=== PATIENT | male | born 1960 | race Caucasian/White ===

== ENCOUNTER 2016-10-31 08:40 | Inpatient (IN) | payer BC ==
[~2016-10-31] VITALS: Ht 167.6 cm; Wt 90.5 kg
[~2016-10-31 08:40] MED LIST: ASPEC81 PO; CHOL100010 PO; CLC6 PO; COEN1CAP28 PO; LPT10 PO; PRAM0.129 PO; PRT/40 PO; TMB100 PO; TPRSR25 PO; WLLSR/200 PO; XRL10 PO; ZNTT/150 PO
[2016-10-31 09:17] LABS: BASO % 0.2 %; BASO ABS # 0.02 K/uL (0-0.2); COMPLETE YES; EOS % 0.4 %; HEMATOCRIT 42.3 % (42-52); IG% 0.2 %; LYMPH % 10.6 %; LYMPH ABS # 1.15 K/uL (1.2-3.4); MEAN CELL VOLUME 82.6 fL (80-100); MEAN CORPUSCULAR HEMOGLOBIN 29.3 pg (25-34); MEAN CORPUSCULAR HGB CONC 35.5 g/dl (32-36); MEAN PLATELET VOLUME 10.3 fL (7.4-10.4); NEUT % 80.6 %; PLATELET COUNT 240 K/uL (130-400); RED BLOOD COUNT 5.12 M/uL (4.7-6.1)
[2016-10-31] MEDS ORDERED: ALBUT/IPRATROP 3MG/0.5MG NEB 3 ML VIAL INH STA ×2 (09:27→13:21)
[2016-10-31 09:35] LABS: ALT/SGPT 21 U/L (12-78); BLOOD UREA NITROGEN 21 mg/dl (7-18); BUN/CREATININE RATIO 17.3 (10-20); CALCIUM 9.3 mg/dl (8.5-10.1); CARBON DIOXIDE 23 mmol/L (21-32); CHLORIDE 103 mmol/L (98-107); GLUCOSE 99 mg/dl (70-99); POTASSIUM 4.1 mmol/L (3.5-5.1); PROTHROMBIN TIME (PATIENT) 10.7 SECONDS (9.0-12.0); SODIUM 137 mmol/L (136-145)
[2016-10-31 09:39] LABS: ALB/GLOB RATIO 0.8 (0.9-2); ALKALINE PHOSPHATASE 117 U/L (45-117); AST/SGOT 19 U/L (15-37); CKMB/CK RATIO 0.7 (0-3.0)
--- NOTE | 2016-10-31 09:42 | DIAGNOSTIC IMAGING REPORT ---
CHEST ONE VIEW PORTABLE CLINICAL HISTORY: EVALUATE RESPIRATORY DISTRESS. DYSPNEA dyspnea COMPARISON STUDY: 07/12/2014 FINDINGS: Moderate cardiac megaly. Findings of developing congestive failure. Diaphragms are smooth. Costophrenic angles are sharp. IMPRESSION: Cardia megaly. Congestive failure. Electronically signed by: Musa Josue M.D. 10/31/2016 9:40 AM Dictated Date/Time: 10/31/2016 9:39 AM
[2016-10-31] MEDS ORDERED: ASPI325T45 (09:43)
[2016-10-31] MEDS ORDERED: CHOL1000 PO (09:43)
[2016-10-31] MEDS ORDERED: ALLO100T PO (09:43)
[2016-10-31 11:04] LABS: URINE APPEARANCE CLEAR (CLEAR); URINE BILIRUBIN NEG (NEG); URINE COLOR YELLOW; URINE NITRITE NEG (NEG); UROBILINOGEN NEG (NEG)
[2016-10-31 11:05] LABS: MANUAL MICROSCOPIC REQUIRED? NO; REVIEW REQ? NO
[2016-10-31] MEDS ORDERED: DOXYCYCLINE HYCLATE 100 MG CAP PO ONE (12:00)
[2016-10-31] MEDS ORDERED: COLCHICINE 0.6 MG TAB PO PRN (14:45)
[2016-10-31] MEDS ORDERED: POLYETHYLENE (MIRALAX) 17 GM PACK PO PRN (14:45)
[2016-10-31] MEDS ORDERED: ONDANSETRON INJ 2 MG/ML 2 ML VIAL IV PRN (14:45)
[2016-10-31] MEDS ORDERED: ACETAMINOPHEN 325 MG TAB PO PRN (14:45)
[2016-10-31] MEDS ORDERED: RANITIDINE HCL 150 MG TAB PO PRN (14:45)
[2016-10-31] MEDS ORDERED: PRAMIPEXOLE DIHYDROCHLORIDE 0.25MG TAB PO PRN (14:45)
--- NOTE | 2016-10-31 15:28 | History and Physical ---
History & Physical Date & Time of Service: Oct 31, 2016 at 15:25 Chief Complaint: Cold, Chest Hurts, Oxygen Levels Are Down Primary Care Physician: Hilario Zheng M.D. History of Present Illness Source: patient, family 56 y/o M with PMH of atrial fibrillation, GERD, Hypercholesterolemia here after he presented to his PCP's office this morning with persistent productive cough and SOB and found to have a saturation of 91. His symptoms started about 3 days ago with a sore throat and a cold and overnight his cough worsened with greenish productive sputum. he had a low grade fever this morning with a temp of 99.5. has a h/o a fib rate controlled with metoprolol and flecainide and using aspirin for AC. No h/o SD, last echo was in 2012. denies any lower extremity swelling, orthopnea, PND. denied any sick contacts and did receive flu vaccine . denies any urinary symptoms , N/V/D/C/abdominal pain. Past Medical/Surgical History Medical Problems: (1) ADHD (attention deficit hyperactivity disorder) Status: Chronic (2) Atrial fibrillation Status: Chronic (3) GERD (gastroesophageal reflux disease) Status: Chronic (4) High cholesterol Status: Chronic Family History No pertinent family history Social History Smoking Status: Never Smoker Drug Use: none Marital Status: Immunizations History of Influenza Vaccine: No Influenza Vaccine Date: Jul 11, 2007 History of Tetanus Vaccine?: Yes History of Pneumococcal: No History of Hepatitis B Vaccine: No Multi-Drug Resistant Organisms History of MDRO: No Allergies Coded Allergies: Cephalexin (Verified Allergy, Unknown, ., 10/31/16) Home Medications Scheduled Allopurinol (Zyloprim), 1 TAB PO DAILY Atorvastatin (Atorvastatin Calcium), 10 MG PO QAM Bupropion Hcl (Wellbutrin Sr), 200 MG PO BID Cholecalciferol (Vitamin D3), 1 TAB PO DAILY Coenzyme Q10 (Ubidecarenone) (Co Q10), 100 MG PO DAILY Flecainide Acetate (Flecainide Acetate), 150 MG PO Q12 Metoprolol Succinate (Metoprolol Succinate ER), 12.5 MG PO QAM Pantoprazole (Pantoprazole Sodium), 40 MG PO DAILY Scheduled PRN Colchicine (Colcrys), 1 TAB PO DAILY PRN for Pain Pramipexole (Mirapex), 0.125 MG PO QID PRN for restless legs Ranitidine (Zantac), 150 MG PO HS PRN for Sleep Miscellaneous Medications Aspirin (Aspirin) Review of Systems Constitutional: + fever (99.5 this morning) Eyes: No worsening of vision ENT: No hearing loss Respiratory: + cough, + shortness of breath, + sputum Cardiovascular: No chest pain Abdomen: No nausea, No pain, No vomiting Musculoskeletal: No joint pain Genitourinary - Male: No dysuria, No hematuria, No urinary frequency Endocrine: No fatigue Physical Exam Vital Signs Date Time Temp Pulse Resp B/P Pulse Ox O2 Delivery O2 Flow Rate FiO2 10/31/16 13:49 96 28 134/102 93 Nasal Cannula 3.0 10/31/16 13:15 91 Nasal Cannula 3.0 10/31/16 13:10 88 Room Air 10/31/16 12:32 92 10/31/16 12:20 90 Room Air 10/31/16 12:00 92 25 115/70 93 Room Air 10/31/16 10:32 68 20 124/72 92 10/31/16 09:33 86 22 123/82 91 Room Air 10/31/16 09:00 92 Room Air 10/31/16 08:57 81 10/31/16 08:43 92 Room Air 10/31/16 08:43 37.2 91 18 114/80 93 Room Air General Appearance: WD/WN, + mild distress Eyes: normal inspection ENT: normal ENT inspection, hearing grossly normal Neck: supple Respiratory/Chest: chest non-tender, + rhonchi Cardiovascular: + tachycardia Abdomen/GI: normal bowel sounds, non tender, soft Extremities/Musculoskelatal: no pedal edema Neurologic/Psych: alert, normal mood/affect, oriented x 3 Skin: normal color Diagnostics Laboratory Results Results Past 24 Hours Test 10/31/16 08:58 10/31/16 09:00 10/31/16 09:30 10/31/16 10:34 Range/Units Influenza Type A Antigen Neg for Influ A NEG Influenza Type B Antigen Neg for Influ B NEG White Blood Count 10.90 4.8-10.8 K/uL Red Blood Count 5.12 4.7-6.1 M/uL Hemoglobin 15.0 14.0-18.0 g/dL Hematocrit 42.3 42-52 % Mean Corpuscular Volume 82.6 80-100 fL Mean Corpuscular Hemoglobin 29.3 25-34 pg Mean Corpuscular Hemoglobin Concent 35.5 32-36 g/dl Platelet Count 240 130-400 K/uL Mean Platelet Volume 10.3 7.4-10.4 fL Neutrophils (%) (Auto) 80.6 % Lymphocytes (%) (Auto) 10.6 % Monocytes (%) (Auto) 8.0 % Eosinophils (%) (Auto) 0.4 % Basophils (%) (Auto) 0.2 % Neutrophils # (Auto) 8.80 1.4-6.5 K/uL Lymphocytes # (Auto) 1.15 1.2-3.4 K/uL Monocytes # (Auto) 0.87 0.11-0.59 K/uL Eosinophils # (Auto) 0.04 0-0.5 K/uL Basophils # (Auto) 0.02 0-0.2 K/uL RDW Standard Deviation 40.5 36.4-46.3 fL RDW Coefficient of Variation 13.4 11.5-14.5 % Immature Granulocyte % (Auto) 0.2 % Immature Granulocyte # (Auto) 0.02 0.00-0.02 K/uL Prothrombin Time 10.7 9.0-12.0 SECONDS Prothromb Time International Ratio 1.0 0.9-1.1 Activated Partial Thromboplast Time 25.0 21.0-31.0 SECONDS Partial Thromboplastin Ratio 1.0 Sodium Level 137 136-145 mmol/L Potassium Level 4.1 3.5-5.1 mmol/L Chloride Level 103 98-107 mmol/L Carbon Dioxide Level 23 21-32 mmol/L Anion Gap 11.0 3-11 mmol/L Blood Urea Nitrogen 21 7-18 mg/dl Creatinine 1.20 0.60-1.40 mg/dl Est Creatinine Clear Calc Drug Dose 72.5 ml/min Estimated GFR () 77.3 Estimated GFR (Non- 66.7 BUN/Creatinine Ratio 17.3 10-20 Random Glucose 99 70-99 mg/dl Calcium Level 9.3 8.5-10.1 mg/dl Total Bilirubin 0.4 0.2-1 mg/dl Aspartate Amino Transf (AST/SGOT) 19 15-37 U/L Alanine Aminotransferase (ALT/SGPT) 21 12-78 U/L Alkaline Phosphatase 117 45-117 U/L Total Creatine Kinase 170 39-308 U/L Creatine Kinase MB 1.2 0.5-3.6 ng/ml Creatine Kinase MB Ratio 0.7 0-3.0 Troponin I < 0.015 0-0.045 ng/ml Pro-B-Type Natriuretic Peptide 102 0-900 pg/ml Total Protein 8.3 6.4-8.2 gm/dl Albumin 3.8 3.4-5.0 gm/dl Globulin 4.5 2.5-4.0 gm/dl Albumin/Globulin Ratio 0.8 0.9-2 Bedside Lactic Acid Venous 1.22 0.90-1.70 mmol/L Urine Color YELLOW Urine Appearance CLEAR CLEAR Urine pH 5.0 4.5-7.5 Urine Specific [place] 1.030 1.000-1.030 Urine Protein NEG NEG Urine Glucose (UA) NEG NEG Urine Ketones TRACE NEG Urine Occult Blood NEG NEG Urine Nitrite NEG NEG Urine Bilirubin NEG NEG Urine Urobilinogen NEG NEG Urine Leukocyte Esterase TRACE NEG Urine WBC (Auto) 5-10 0-5 /hpf Urine RBC (Auto) 0-4 0-4 /hpf Urine Hyaline Casts (Auto) 10-30 0-5 /lpf Urine Epithelial Cells (Auto) 10-20 0-5 /lpf Urine Bacteria (Auto) NEG NEG Microbiology Results 10/31/16 Blood Culture, Received Pending 10/31/16 Blood Culture, Received Pending Diagnostic Radiology CHEST ONE VIEW PORTABLE CLINICAL HISTORY: EVALUATE RESPIRATORY DISTRESS. DYSPNEA dyspnea COMPARISON STUDY: 07/12/2014 FINDINGS: Moderate cardiac megaly. Findings of developing congestive failure. Diaphragms are smooth. Costophrenic angles are sharp. IMPRESSION: Cardia megaly. Congestive failure. EKG Sinus rhythm with 1st degree A-V block Indeterminate axis Non-specific intra-ventricular conduction block Abnormal ECG When compared with ECG of 13-JUL-2014 09:25, Impression Assessment and Plan 56 y/o M with PMH of atrial fibrillation, GERD, Hypercholesterolemia here after he presented to his PCP's office this morning with persistent productive cough and SOB and found to have a saturation of 91. admitted for possible pneumonia vs CHF ( has no h/o CHF ) Acute hypoxic respiratory distress : Pneumonia vs CHF - Continue O2 per protocol - CXR : Cardia megaly. Congestive failure. - BC pending, Influenza swab negative - BNP : 109 - [id number] mg BID and Augmentin 875 mg BID( has tolerated amoxicillin with no problem) Atrial fibrillation: [id number] of 1 EKG: Sinus rhythm with 1st degree A-V block Indeterminate axis Non-specific intra-ventricular conduction block - Continue metoprolol 12.5 mg BID and Flecainide 150 mg q12h - aspirin for AC Hypercholesterolemia: - Atorvastatin 10 mg GERD: Protonix 40 mg daily Full code DVT prophylaxis: Lovenox Level of Care Telemetry Resuscitation Status FULL RESUSCITATION VTE Prophylaxis VTE Risk Assessment Done? Y/N: Yes Risk Level: Moderate Given or contraindicated: Enoxaparin (Lovenox)SQ Note Total Time: Critical Care 30 - 74 minutes Reviewed: Pt Seen/Exam by Me, RN Notes, HO Notes, Prior Records History Resident Physician Supervision Note: I was present with during the history and exam. I discussed the case with the resident and agree with the findings and plan as documented in the note. Any exceptions or clarifications are listed here: 56 y/o M with PMH of atrial fibrillation, GERD, Hypercholesterolemia here after he presented to his PCP's office this morning with persistent productive cough and SOB and found to have a saturation of 91 %. Constitutional: denies: chills Respiratory: negative: cough Cardiovascular: denies chest pain Gastrointestinal/Abdominal: negative: abdominal pain Musculoskeletal: negative: back pain Neurological/Psych: negative: anxiety General Appearance: WD/WN Eye Exam: bilateral eye normal inspection Ears, Nose, Throat: hearing grossly normal, pharynx normal Neck: non-tender, supple Respiratory: chest non-tender, no respiratory distress Cardiovascular: normal peripheral pulses, no edema Gastrointestinal: normal bowel sounds, soft Extremities: non-tender, normal inspection Neurologic/Psychiatric: alert, normal mood/affect Skin Characteristics: normal color Assessment/Plan A 56 yo male comes with possible pneumonia vs CHF ( has no h/o CHF ) Acute hypoxic respiratory distress : Pneumonia vs CHF Continue O2 per protocol CXR : Cardia megaly. Congestive failure. blood cultures pending, Influenza swab negative BNP : 109 [id number] mg BID and Augmentin 875 mg BID( has tolerated amoxicillin with no problem) Atrial fibrillation: [id number] of 1 EKG: Sinus rhythm with 1st degree A-V block Indeterminate axis Continue metoprolol 12.5 mg BID and Flecainide 150 mg q12h aspirin for AC Hypercholesterolemia: Atorvastatin 10 mg GERD: Protonix 40 mg daily Full code DVT prophylaxis: Lovenox sq Documented By: Des Hameed
[2016-10-31 15:35] VITALS: O2SAT 93; Ht 167.6 cm; Wt 90.5 kg
[2016-10-31 16:15] VITALS: BP 136/77; PULSE 89; TEMP 36.7; O2SAT 92
[2016-10-31] MEDS: AMOXICILLIN/CLAVULANATE TAB 875 MG TAB PO SCH (17:24)
[2016-10-31 19:37] VITALS: BP 136/73; PULSE 86; TEMP 36.4; O2SAT 94
[2016-10-31] MEDS: HEPARIN SOD 5000 UNIT/0.5 ML CARP SQ SCH (21:15)
[2016-10-31] MEDS: DOXYCYCLINE HYCLATE 100 MG CAP PO SCH (21:16)
[2016-10-31] MEDS: BuPROPion SR 100 MG TABCR PO SCH (21:16)
[2016-10-31] MEDS: FLECAINIDE ACETATE 100 MG TAB PO SCH (21:17)
[2016-10-31 23:36] VITALS: BP 122/69; PULSE 84; TEMP 37; O2SAT 93
[2016-11-01] VITALS (10 sets, daily range): BP systolic 100–150; BP diastolic 60–83; PULSE 66–140; TEMP 36.2–37.1; O2SAT 90–94
[2016-11-01] MEDS: AMOXICILLIN/CLAVULANATE TAB 875 MG TAB PO SCH ×2 (08:01→17:07)
[2016-11-01] MEDS: PANTOprazole SOD 40 MG TAB PO SCH (08:01)
[2016-11-01] MEDS: BuPROPion SR 100 MG TABCR PO SCH ×2 (08:02→20:31)
[2016-11-01] MEDS: DOXYCYCLINE HYCLATE 100 MG CAP PO SCH ×2 (08:02→20:30)
[2016-11-01] MEDS: FLECAINIDE ACETATE 100 MG TAB PO SCH ×2 (08:02→18:30)
[2016-11-01] MEDS: ALLOPURINOL 100 MG TAB PO SCH (08:03)
[2016-11-01] MEDS: ASPIRIN 325 MG ECTAB PO SCH (08:03)
[2016-11-01] MEDS: ATORVASTATIN 10 MG TAB PO SCH (08:04)
[2016-11-01] MEDS: HEPARIN SOD 5000 UNIT/0.5 ML CARP SQ SCH ×2 (08:05→20:32)
--- NOTE | 2016-11-01 08:22 | Hospitalist Progress Note ---
Hospitalist Progress Note Date of Service Nov 01, 2016. (Carmen Meza ., PA-C) Subjective Pt evaluation today including: conversation w/ patient, conversation w/ family , physical exam, chart review, lab review, review of studies, review of inpatient medication list Voiding: no voiding problems, no incontinence Patient states he is feeling lousy, but improved since admission. +sore throat. +productive cough- yellowish/green sputum. Ate dinner on 10/31 and became nauseated. Ate breakfast on 11/01 and tolerated it well. +daily BMs. Patient denies any fever, chills, sweats, lightheadedness, dizziness, vision changes, CP , palpitations, edema, wheezing, abdominal pain, vomiting, diarrhea, urinary symptoms, melena, numbness/tingling, weakness, muscle/joint pain, anxiety/ depression, active bleeding, or new skin discoloration/changes. (Carmen Meza ., PA-C) Medications Current Inpatient Medications Medications (Trade) Dose Ordered Sig/Nicko Route Start Time Stop Time Status Last Admin Dose Admin Heparin Sodium (Porcine) (Heparin Sq 5000 Unit/0.5ml) 5,000 unit Q12 SQ 10/31/16 21:00 11/30/16 20:59 11/01/16 08:05 5,000 UNIT Acetaminophen (Tylenol Tab) 650 mg Q4H PRN PO 10/31/16 14:45 11/30/16 14:44 Ondansetron HCl (Zofran Inj) 4 mg Q6H PRN IV 10/31/16 14:45 11/30/16 14:44 Polyethylene (Miralax Powder Packet) 17 gm DAILY PRN PO 10/31/16 14:45 11/30/16 14:44 Allopurinol (Zyloprim Tab) 100 mg DAILY PO 11/01/16 09:00 12/01/16 08:59 11/01/16 08:03 100 MG Aspirin (Ecotrin Tab) 325 mg DAILY PO 11/01/16 09:00 12/01/16 08:59 11/01/16 08:03 325 MG Atorvastatin Calcium (Lipitor Tab) 10 mg QAM PO 11/01/16 09:00 12/01/16 08:59 11/01/16 08:04 10 MG Bupropion HCl (Wellbutrin-Sr Tab) 200 mg BID PO 10/31/16 21:00 11/30/16 20:59 11/01/16 08:02 200 MG Colchicine (Colchicine Tab) 0.6 mg DAILY PRN PO 10/31/16 14:45 11/30/16 14:44 Pantoprazole Sodium (Protonix Tab) 40 mg DAILY PO 11/01/16 09:00 12/01/16 08:59 11/01/16 08:01 40 MG Pramipexole Dihydrochloride (miraPEX TAB) 0.125 mg QID PRN PO 10/31/16 14:45 11/30/16 14:44 Ranitidine HCl (zANTac TAB) 150 mg HS PRN PO 10/31/16 14:45 11/30/16 14:44 Doxycycline Hyclate (Vibramycin Cap) 100 mg BID PO 10/31/16 21:00 11/07/16 20:59 11/01/16 08:02 100 MG Amoxicillin/ Clavulanate Potassium (Augmentin Tab) 875 mg BIDM PO 10/31/16 17:30 11/07/16 17:29 11/01/16 08:01 875 MG Flecainide Acetate (Tambocor Tab) 150 mg Q12H PO 11/01/16 18:30 12/01/16 18:29 Menthol ([place] Mara) 1 mara Q2HWA PRN PO 11/01/16 10:45 12/01/16 10:44 Ipratropium [place] (Atrovent 0.02% 0.5MG/2.5ML Neb) 0.5 mg Q6R INH 11/01/16 15:00 12/01/16 14:59 Levalbuterol (Xopenex 1.25MG/ 0.5ML Neb) 1.25 mg Q6R INH 11/01/16 15:00 12/01/16 14:59 Metoprolol Succinate (Toprol Xl Tab) 12.5 mg DAILY@0630 PO 11/02/16 06:30 12/02/16 06:29 (Carmen Meza, NICHOC) Objective Vital Signs Date Time Temp Pulse Resp B/P Pulse Ox O2 Delivery O2 Flow Rate FiO2 11/01/16 07:15 36.8 95 18 108/80 93 Nasal Cannula 3.0 11/01/16 04:02 Nasal Cannula 3.0 11/01/16 03:31 36.8 87 19 100/60 93 Nasal Cannula 3.0 11/01/16 00:02 Nasal Cannula 3.0 10/31/16 23:36 37.0 84 19 122/69 93 Nasal Cannula 3.0 10/31/16 20:04 Nasal Cannula 3.0 10/31/16 19:37 36.4 86 19 136/73 94 Nasal Cannula 3.0 10/31/16 16:15 Nasal Cannula 3.0 10/31/16 16:15 36.7 89 24 136/77 92 Nasal Cannula 3.0 10/31/16 16:15 88 27 125/88 93 10/31/16 15:39 97 21 122/78 93 Nasal Cannula 3.0 10/31/16 15:35 93 Nasal Cannula 3.0 10/31/16 13:49 96 28 134/102 93 Nasal Cannula 3.0 10/31/16 13:15 91 Nasal Cannula 3.0 10/31/16 13:10 88 Room Air 10/31/16 12:32 92 10/31/16 12:20 90 Room Air 10/31/16 12:00 92 25 115/70 93 Room Air 10/31/16 10:32 68 20 124/72 92 10/31/16 09:33 86 22 123/82 91 Room Air 10/31/16 09:00 92 Room Air 10/31/16 08:57 81 10/31/16 08:43 92 Room Air 10/31/16 08:43 37.2 91 18 114/80 93 Room Air (Carmen Mzea, PA-C) Physical Exam General Appearance: no apparent distress, + pertinent finding (O2 supplement on ) Eyes: normal inspection, PERRL ENT: hearing grossly normal Neck: supple Respiratory/Chest: no respiratory distress, no accessory muscle use, + decreased breath sounds (throughout ) Cardiovascular: regular rate, rhythm Abdomen: normal bowel sounds, non tender, soft Extremities: no pedal edema, no calf tenderness Neurologic/Psychiatric: alert, normal mood/affect, oriented x 3 Skin: normal color, warm/dry, no rash (Carmen Meza, PA-C) Laboratory Results Last 24 Hours Test 10/31/16 08:58 10/31/16 09:00 10/31/16 09:30 2/8/17 10:34 Influenza Type A Antigen Neg for Influ A Influenza Type B Antigen Neg for Influ B White Blood Count 10.90 K/uL Red Blood Count 5.12 M/uL Hemoglobin 15.0 g/dL Hematocrit 42.3 % Mean Corpuscular Volume 82.6 fL Mean Corpuscular Hemoglobin 29.3 pg Mean Corpuscular Hemoglobin Concent 35.5 g/dl Platelet Count 240 K/uL Mean Platelet Volume 10.3 fL Neutrophils (%) (Auto) 80.6 % Lymphocytes (%) (Auto) 10.6 % Monocytes (%) (Auto) 8.0 % Eosinophils (%) (Auto) 0.4 % Basophils (%) (Auto) 0.2 % Neutrophils # (Auto) 8.80 K/uL Lymphocytes # (Auto) 1.15 K/uL Monocytes # (Auto) 0.87 K/uL Eosinophils # (Auto) 0.04 K/uL Basophils # (Auto) 0.02 K/uL RDW Standard Deviation 40.5 fL RDW Coefficient of Variation 13.4 % Immature Granulocyte % (Auto) 0.2 % Immature Granulocyte # (Auto) 0.02 K/uL Prothrombin Time 10.7 SECONDS Prothromb Time International Ratio 1.0 Activated Partial Thromboplast Time 25.0 SECONDS Partial Thromboplastin Ratio 1.0 Sodium Level 137 mmol/L Potassium Level 4.1 mmol/L Chloride Level 103 mmol/L Carbon Dioxide Level 23 mmol/L Anion Gap 11.0 mmol/L Blood Urea Nitrogen 21 mg/dl Creatinine 1.20 mg/dl Est Creatinine Clear Calc Drug Dose 72.5 ml/min Estimated GFR () 77.3 Estimated GFR (Non- 66.7 BUN/Creatinine Ratio 17.3 Random Glucose 99 mg/dl Calcium Level 9.3 mg/dl Total Bilirubin 0.4 mg/dl Aspartate Amino Transf (AST/SGOT) 19 U/L Alanine Aminotransferase (ALT/SGPT) 21 U/L Alkaline Phosphatase 117 U/L Total Creatine Kinase 170 U/L Creatine Kinase MB 1.2 ng/ml Creatine Kinase MB Ratio 0.7 Troponin I < 0.015 ng/ml Pro-B-Type Natriuretic Peptide 102 pg/ml Total Protein 8.3 gm/dl Albumin 3.8 gm/dl Globulin 4.5 gm/dl Albumin/Globulin Ratio 0.8 Hepatitis C Antibody Screen NEG Bedside Lactic Acid Venous 1.22 mmol/L Urine Color YELLOW Urine Appearance CLEAR Urine pH 5.0 Urine Specific [place] 1.030 Urine Protein NEG Urine Glucose (UA) NEG Urine Ketones TRACE Urine Occult Blood NEG Urine Nitrite NEG Urine Bilirubin NEG Urine Urobilinogen NEG Urine Leukocyte Esterase TRACE Urine WBC (Auto) 5-10 /hpf Urine RBC (Auto) 0-4 /hpf Urine Hyaline Casts (Auto) 10-30 /lpf Urine Epithelial Cells (Auto) 10-20 /lpf Urine Bacteria (Auto) NEG (Carmen Meza ., PATimmyC) Assessment and Plan 56 y/o male with PMH of atrial fibrillation, GERD, Hypercholesterolemia here after he presented to his PCP's office this morning with persistent productive cough and SOB and found to have a oxygen saturation of 91%. Acute hypoxic respiratory distress : Pneumonia vs CHF - Admit tele -- Transfer to med/surg on 11/01 - Continue O2 per protocol- 3L currently, does NOT wear O2 at home - CXR- Cardia megaly. Congestive failure. - Pending blood cultures - Influenza swab negative - [id number] mg BID and Augmentin 875 mg BID (has tolerated amoxicillin with no problem)- (started on 11/01) - Follow BMP and CBC - DuoNeb - Lozenges PRN for sore throat Atrial fibrillation: - Continue Metoprolol 12.5 mg BID and Flecainide 150 mg q12h - Aspirin for AC Hypercholesterolemia: - Atorvastatin 10 mg PO daily GERD: - Protonix 40 mg daily DVT prophylaxis: - Heparin 5000 units SQ q12 hrs Code status: - LEVEL I, FULL Dispo: - Return to home when medically stable (Carmen Meza ., PA-C) i personally examined pt and verified all rehman points w Michele Meza PAC when seen earlier today, slowly feeling better coughing up yellow white mucous later asked to see due to palpitations and sudden onset of afib. notes this happens from time to time - told by cardiology to take extra flecainide EKG obtained - afib ~150, no ischemia. nad, irreg irreg tachy - but no distress (still coughing up same sputum, however) -flecainide given, f/u ~20 mins later - feeling much better palpitations resolved still irreg irreg ~110 now. -metoprolol 25mg x1 given - will f/u shortly (Alvaro Keith D.O.)
[2016-11-01] MEDS ORDERED: METOPROLOL SUCC 25MG EXT REL TAB PO SCH (09:00)
[2016-11-01] MEDS ORDERED: COUGH DROP (SUGAR FREE) LOZ 24 LOZ/1 BOX PO PRN (10:45)
[2016-11-01] MEDS: LEVALBUTEROL 1.25MG/0.5ML NEB INH SCH ×2 (14:29→20:42)
[2016-11-01] MEDS: IPRATROPIUM BROMIDE NEB SOLN 0.02% 2.5 ML VIAL INH SCH ×2 (14:29→20:42)
[2016-11-01] MEDS ORDERED: LEVALBUTEROL/IPRATROPIUM NEB INH SCH (15:00)
--- NOTE | 2016-11-01 18:06 | EMERGENCY ROOM VISIT NOTE ---
History Report prepared by John: Narendra Ewing Under the Supervision of: Dr. Qamar Brambila M.D. First contact with patient: 09:00 Chief Complaint: RESPIRATORY PROBLEMS Stated Complaint: COLD, CHEST HURTS, OXYGEN LEVELS ARE DOWN Nursing Triage Summary: pt c/o cold sx started saturday afternoon. went to pcp sent here for eval and further care. productive cough with white sputum. has chest congestion. fever this am of 99.5. feels sob started this am History of Present Illness The patient is a 56 year old male who presents to the Emergency Room with complaints of a persistent productive cough for the past three days. The cough produces green sputum. The patient also complains of some chest pain secondary to congestion. His temperature was 99.5 this morning. The patient also complains of shortness of breath. The patient was referred to the ED by his PCP , where his oxygen saturation was 91. The patient denies any history of lung disease or pneumonia. He has a history of atrial fibrillation, but has never had an GA. The patient is on aspirin but no major blood thinners. The patient denies any sick contacts. Patient denies LOC, headache, chills, diaphoresis, visual changes, neck pain, nausea, vomiting, abdominal pain, back pain, melena, hematochezia, urinary symptoms, numbness, weakness, lymphadenopathy, rash, or other complaints. Source of History: patient Onset: three days Position: other (respiratory) Quality: other (productive cough) Timing: other (persistent) Associated Symptoms: + SOB, + chest pain, + fevers Review of Systems See HPI for pertinent positives and negatives. A total of ten systems were reviewed and were otherwise negative. Past Medical & Surgical Medical Problems: (1) ADHD (attention deficit hyperactivity disorder) (2) Atrial fibrillation (3) GERD (gastroesophageal reflux disease) (4) High cholesterol (5) Hypoxia (6) Respiratory distress Family History No pertinent family history Social History Smoking Status: Never Smoker Alcohol Use: none Drug Use: none Marital Status: Housing Status: lives with significant other Current/Historical Medications Scheduled Allopurinol (Zyloprim), 1 TAB PO DAILY Atorvastatin (Atorvastatin Calcium), 10 MG PO QAM Bupropion Hcl (Wellbutrin Sr), 200 MG PO BID Cholecalciferol (Vitamin D3), 1 TAB PO DAILY Coenzyme Q10 (Ubidecarenone) (Co Q10), 100 MG PO DAILY Flecainide Acetate (Flecainide Acetate), 150 MG PO Q12 Metoprolol Succinate (Metoprolol Succinate ER), 12.5 MG PO QAM Pantoprazole (Pantoprazole Sodium), 40 MG PO DAILY Scheduled PRN Colchicine (Colcrys), 1 TAB PO DAILY PRN for Pain Pramipexole (Mirapex), 0.125 MG PO QID PRN for restless legs Ranitidine (Zantac), 150 MG PO HS PRN for Sleep Miscellaneous Medications Aspirin (Aspirin) Allergies Coded Allergies: Cephalexin (Verified Allergy, Unknown, ., 10/31/16) Physical Exam Vital Signs Date Time Temp Pulse Resp B/P Pulse Ox O2 Delivery O2 Flow Rate FiO2 10/31/16 13:49 96 28 134/102 93 Nasal Cannula 3.0 10/31/16 13:15 91 Nasal Cannula 3.0 10/31/16 13:10 88 Room Air 10/31/16 12:32 92 10/31/16 12:20 90 Room Air 10/31/16 12:00 92 25 115/70 93 Room Air 10/31/16 10:32 68 20 124/72 92 10/31/16 09:33 86 22 123/82 91 Room Air 10/31/16 09:00 92 Room Air 10/31/16 08:57 81 10/31/16 08:43 92 Room Air 10/31/16 08:43 37.2 91 18 114/80 93 Room Air Physical Exam GENERAL: Awake, alert, tired-appearing, in no distress HENT: Normocephalic, atraumatic. Oropharynx unremarkable. EYES: Normal conjunctiva. Sclera non-icteric. NECK: Supple. No nuchal rigidity. FROM. No JVD. RESPIRATORY: Rhonchi on the left side. Productive cough of green sputum. CARDIAC: Borderline tachycardic normal rhythm. Extremities warm and well perfused. Pulses equal. ABDOMEN: Soft, non-distended. No tenderness to palpation. No rebound or guarding. No masses. RECTAL: Deferred. MUSCULOSKELETAL: Chest examination reveals no tenderness. The back is symmetrical on inspection without obvious abnormality. There is no CVA tenderness to palpation. No joint edema. LOWER EXTREMITIES: Calves are equal size bilaterally and non-tender. No edema. No discoloration. NEURO: Normal sensorium. No sensory or motor deficits noted. SKIN: No rash or jaundice noted. Medical Decision & Procedures ER Provider Diagnostic Interpretation: X-ray: Per my interpretation, radiologist review. CHEST ONE VIEW PORTABLE CLINICAL HISTORY: EVALUATE RESPIRATORY DISTRESS. DYSPNEA dyspnea COMPARISON STUDY: 07/12/2014 FINDINGS: Moderate cardiac megaly. Findings of developing congestive failure. Diaphragms are smooth. Costophrenic angles are sharp. IMPRESSION: Cardia megaly. Congestive failure. Electronically signed by: Musa Josue M.D. 10/31/2016 9:40 AM Dictated Date/Time: 10/31/2016 9:39 AM Laboratory Results 10/31/16 09:00 Red Blood Count 5.12, Mean Corpuscular Volume 82.6, Mean Corpuscular Hemoglobin 29.3, Mean Corpuscular Hemoglobin Concent 35.5, Mean Platelet Volume 10.3, Neutrophils (%) (Auto) 80.6, Lymphocytes (%) (Auto) 10.6, Monocytes (%) (Auto) 8.0, Eosinophils (%) (Auto) 0.4, Basophils (%) (Auto) 0.2, Neutrophils # (Auto) 8.80, Lymphocytes # (Auto) 1.15, Monocytes # (Auto) 0.87, Eosinophils # (Auto) 0.04, Basophils # (Auto) 0.02 10/31/16 09:00 Test 10/31/16 08:58 10/31/16 09:00 10/31/16 09:30 10/31/16 10:34 Influenza Type A Antigen Neg for Influ A (NEG) Influenza Type B Antigen Neg for Influ B (NEG) White Blood Count 10.90 K/uL (4.8-10.8) Red Blood Count 5.12 M/uL (4.7-6.1) Hemoglobin 15.0 g/dL (14.0-18.0) Hematocrit 42.3 % (42-52) Mean Corpuscular Volume 82.6 fL (80-100) Mean Corpuscular Hemoglobin 29.3 pg (25-34) Mean Corpuscular Hemoglobin Concent 35.5 g/dl (32-36) Platelet Count 240 K/uL (130-400) Mean Platelet Volume 10.3 fL (7.4-10.4) Neutrophils (%) (Auto) 80.6 % Lymphocytes (%) (Auto) 10.6 % Monocytes (%) (Auto) 8.0 % Eosinophils (%) (Auto) 0.4 % Basophils (%) (Auto) 0.2 % Neutrophils # (Auto) 8.80 K/uL (1.4-6.5) Lymphocytes # (Auto) 1.15 K/uL (1.2-3.4) Monocytes # (Auto) 0.87 K/uL (0.11-0.59) Eosinophils # (Auto) 0.04 K/uL (0-0.5) Basophils # (Auto) 0.02 K/uL (0-0.2) RDW Standard Deviation 40.5 fL (36.4-46.3) RDW Coefficient of Variation 13.4 % (11.5-14.5) Immature Granulocyte % (Auto) 0.2 % Immature Granulocyte # (Auto) 0.02 K/uL (0.00-0.02) Prothrombin Time 10.7 SECONDS (9.0-12.0) Prothromb Time International Ratio 1.0 (0.9-1.1) Activated Partial Thromboplast Time 25.0 SECONDS (21.0-31.0) Partial Thromboplastin Ratio 1.0 Anion Gap 11.0 mmol/L (3-11) Est Creatinine Clear Calc Drug Dose 72.5 ml/min Estimated GFR () 77.3 Estimated GFR (Non- 66.7 BUN/Creatinine Ratio 17.3 (10-20) Calcium Level 9.3 mg/dl (8.5-10.1) Total Bilirubin 0.4 mg/dl (0.2-1) Aspartate Amino Transf (AST/SGOT) 19 U/L (15-37) Alanine Aminotransferase (ALT/SGPT) 21 U/L (12-78) Alkaline Phosphatase 117 U/L (45-117) Total Creatine Kinase 170 U/L (39-308) Creatine Kinase MB 1.2 ng/ml (0.5-3.6) Creatine Kinase MB Ratio 0.7 (0-3.0) Troponin I < 0.015 ng/ml (0-0.045) Pro-B-Type Natriuretic Peptide 102 pg/ml (0-900) Total Protein 8.3 gm/dl (6.4-8.2) Albumin 3.8 gm/dl (3.4-5.0) Globulin 4.5 gm/dl (2.5-4.0) Albumin/Globulin Ratio 0.8 (0.9-2) Hepatitis C Antibody Screen NEG (NEG) Bedside Lactic Acid Venous 1.22 mmol/L (0.90-1.70) Urine Color YELLOW Urine Appearance CLEAR (CLEAR) Urine pH 5.0 (4.5-7.5) Urine Specific [place] 1.030 (1.000-1.030) Urine Protein NEG (NEG) Urine Glucose (UA) NEG (NEG) Urine Ketones TRACE (NEG) Urine Occult Blood NEG (NEG) Urine Nitrite NEG (NEG) Urine Bilirubin NEG (NEG) Urine Urobilinogen NEG (NEG) Urine Leukocyte Esterase TRACE (NEG) Urine WBC (Auto) 5-10 /hpf (0-5) Urine RBC (Auto) 0-4 /hpf (0-4) Urine Hyaline Casts (Auto) 10-30 /lpf (0-5) Urine Epithelial Cells (Auto) 10-20 /lpf (0-5) Urine Bacteria (Auto) NEG (NEG) Laboratory results reviewed by me Medications Administered Medications (Trade) Dose Ordered Sig/Nicko Route Start Time Stop Time Status Last Admin Dose Admin Albuterol/ Ipratropium (Duoneb) 3 ml NOW STAT INH 10/31/16 09:27 10/31/16 09:28 DC 10/31/16 09:35 3 ML Doxycycline Hyclate (Vibramycin Cap) 100 mg ONE ONCE PO 10/31/16 12:00 10/31/16 12:01 DC 10/31/16 12:00 100 MG Albuterol/ Ipratropium (Duoneb) 3 ml NOW STAT INH 10/31/16 13:21 10/31/16 13:22 DC 10/31/16 13:31 3 ML ECG Indication: SOB/dyspnea Rate (beats per minute): 84 Rhythm: sinus rhythm Findings: 1st degree AV block, no acute ischemic change, no ectopy, other (non- specific intraventricular block) ED Course 911: The patient was evaluated in room B9. A complete history and physical exam was performed. 0927: DuoNeb 3 ml INH. 1100: Coughing more after DuoNeb treatment. 1155: The patient is doing well. We will get an ambulatory pulse ox. 1200: Vibramycin 100 mg PO. 1305: The patient's oxygen saturation dropped to 88. 1321: DuoNeb 3 ml INH. 1324: Spoke with Dr. Hameed [facility]. The patient will be evaluated. Medical Decision Triage Nursing notes reviewed. The patient's presentation and history were concerning for respiratory issues. Etiologies such as pneumonia, COPD, reactive airway disease, CHF, cardiac ischemia, pulmonary embolism, pneumothorax, musculoskeletal, infections, gastrointestinal, as well as others were entertained. The patient was evaluated. He had a significant purulent productive cough. IV was established. Blood cultures were performed. Lactate was done. ECG did not show any acute ischemic change. The patient had chest x-ray. Some congestion was noted but no obvious infiltrate. Radiology questioned about CHF however the patient has a negative BNP and has more flulike symptoms with productive cough than he does symptoms to suggest CHF. His blood work was unremarkable. The patient was treated as above. He was given oral doxycycline. The hope was to be able to discharge him however he had slight hypoxia and oxygen requirements. Given this significant congestion and his oxygen requirements treatment in the hospital was felt to be most appropriate. Patient's were in agreement. Consultation was made with medicine for further management. The chart was completed utilizing [employer] Speech voice recognition software. Grammatical errors, random word insertions, pronoun errors, and incomplete sentences are an occasional consequence of this system due to software limitations, ambient noise, and hardware issues. Any formal questions or concerns about the content, text, or information contained within the body of this dictation should be directly addressed to the physician for clarification. Consults Time Called: 1315 Consulting Physician: Dr. Hameed [facility]. Returned Call: 132 1324: Spoke with Dr. Hameed [facility]. The patient will be evaluated. Impression Primary Impression: Productive cough Additional Impression: Hypoxia Scribe Attestation The scribe's documentation has been prepared under my direction and personally reviewed by me in its entirety. I confirm that the note above accurately reflects all work, treatment, procedures, and medical decision making performed by me. Departure Information Dispostion Being Evaluated By Hospitalist Referrals Hilario Zheng M.D. (PCP) Patient Instructions My [facility] Problem Qualifiers
[2016-11-01] MEDS ORDERED: FLECAINIDE ACETATE 100 MG TAB PO STA (18:12)
[2016-11-01] MEDS ORDERED: METOPROLOL TARTRATE 25 MG TAB PO ONE ×2 (18:15→19:30)
[2016-11-01] MEDS ORDERED: DILTIAZEM BOLUS / DRIP IV STA (20:04)
[2016-11-01] MEDS ORDERED: RIVAROXABAN 20 MG TAB PO ONE (20:15)
[2016-11-01] MEDS ORDERED: DILTIAZEM HCL 5 MG/ML 5 ML VIAL IV SCH (20:15)
[2016-11-02] VITALS (11 sets, daily range): BP systolic 99–132; BP diastolic 60–95; PULSE 75–115; TEMP 36.4–37.3; O2SAT 90–95
[2016-11-02] MEDS: LEVALBUTEROL 1.25MG/0.5ML NEB INH SCH ×4 (01:35→19:17)
[2016-11-02] MEDS: IPRATROPIUM BROMIDE NEB SOLN 0.02% 2.5 ML VIAL INH SCH ×4 (01:35→19:17)
[2016-11-02 05:00] LABS: BASO % 0.8 %; BASO ABS # 0.05 K/uL (0-0.2); EOS % 3.5 %; HEMATOCRIT 41.4 % (42-52); IG% 0.2 %; LYMPH % 16.2 %; LYMPH ABS # 1.01 K/uL (1.2-3.4); MEAN CORPUSCULAR HEMOGLOBIN 28.9 pg (25-34); MEAN PLATELET VOLUME 9.9 fL (7.4-10.4); MONO % 11.7 %; NEUT % 67.6 %; PLATELET COUNT 200 K/uL (130-400); RED BLOOD COUNT 4.99 M/uL (4.7-6.1); WHITE BLOOD COUNT 6.25 K/uL (4.8-10.8)
[2016-11-02 05:21] LABS: COMPLETE YES; MEAN CORPUSCULAR HGB CONC 34.8 g/dl (32-36)
[2016-11-02 05:23] LABS: BUN/CREATININE RATIO 20.1 (10-20); CALCIUM 9.2 mg/dl (8.5-10.1); CREATININE 1.3 mg/dl (0.60-1.40); MAGNESIUM 2.1 mg/dl (1.8-2.4); POTASSIUM 4.3 mmol/L (3.5-5.1)
[2016-11-02] MEDS: FLECAINIDE ACETATE 100 MG TAB PO SCH ×2 (06:18→18:13)
[2016-11-02] MEDS: METOPROLOL SUCC 25MG EXT REL TAB PO SCH (06:19)
--- NOTE | 2016-11-02 08:08 | Hospitalist Progress Note ---
Hospitalist Progress Note Date of Service Nov 02, 2016. (Carmen Meza ., PA-C) Subjective Pt evaluation today including: conversation w/ patient, conversation w/ family , physical exam, chart review, lab review, review of inpatient medication list Voiding: no voiding problems, no incontinence Patient states he is feeling better today. Cardiology plans to cardiovert this afternoon. Patient off O2, saturating at 94%. +cough with sputum production. + sore throat. He is eating and drinking OK. Patient denies any fever, chills, sweats, lightheadedness, dizziness, vision changes, CP, palpitations, edema, SOB , wheezing, abdominal pain, nausea, vomiting, diarrhea, urinary symptoms, melena , numbness/tingling, weakness, muscle/joint pain, anxiety/depression, active bleeding, or new skin discoloration/changes. (Carmen Meza ., PA-C) Medications Current Inpatient Medications Medications (Trade) Dose Ordered Sig/Nicko Route Start Time Stop Time Status Last Admin Dose Admin Acetaminophen (Tylenol Tab) 650 mg Q4H PRN PO 10/31/16 14:45 11/30/16 14:44 Ondansetron HCl (Zofran Inj) 4 mg Q6H PRN IV 10/31/16 14:45 11/30/16 14:44 Polyethylene (Miralax Powder Packet) 17 gm DAILY PRN PO 10/31/16 14:45 11/30/16 14:44 Allopurinol (Zyloprim Tab) 100 mg DAILY PO 11/01/16 09:00 12/01/16 08:59 11/02/16 08:32 100 MG Aspirin (Ecotrin Tab) 325 mg DAILY PO 11/01/16 09:00 12/01/16 08:59 11/02/16 08:32 325 MG Atorvastatin Calcium (Lipitor Tab) 10 mg QAM PO 11/01/16 09:00 12/01/16 08:59 11/02/16 08:32 10 MG Bupropion HCl (Wellbutrin-Sr Tab) 200 mg BID PO 10/31/16 21:00 11/30/16 20:59 11/02/16 08:32 200 MG Colchicine (Colchicine Tab) 0.6 mg DAILY PRN PO 10/31/16 14:45 11/30/16 14:44 Pantoprazole Sodium (Protonix Tab) 40 mg DAILY PO 11/01/16 09:00 12/01/16 08:59 11/02/16 08:32 40 MG Pramipexole Dihydrochloride (miraPEX TAB) 0.125 mg QID PRN PO 10/31/16 14:45 11/30/16 14:44 Ranitidine HCl (zANTac TAB) 150 mg HS PRN PO 10/31/16 14:45 11/30/16 14:44 Doxycycline Hyclate (Vibramycin Cap) 100 mg BID PO 10/31/16 21:00 11/07/16 20:59 11/02/16 08:32 100 MG Amoxicillin/ Clavulanate Potassium (Augmentin Tab) 875 mg BIDM PO 10/31/16 17:30 11/07/16 17:29 11/02/16 08:32 875 MG Flecainide Acetate (Tambocor Tab) 150 mg Q12H PO 11/01/16 18:30 12/01/16 18:29 11/02/16 06:18 150 MG Menthol ([place]) 1 mara Q2HWA PRN PO 11/01/16 10:45 12/01/16 10:44 Ipratropium [place] (Atrovent 0.02% 0.5MG/2.5ML Neb) 0.5 mg Q6R INH 11/01/16 15:00 12/01/16 14:59 11/02/16 07:27 0.5 MG Levalbuterol (Xopenex 1.25MG/ 0.5ML Neb) 1.25 mg Q6R INH 11/01/16 15:00 12/01/16 14:59 11/02/16 07:27 1.25 MG Metoprolol Succinate 12.5 mg 12.5 mg DAILY@0630 PO 11/02/16 06:30 12/02/16 06:29 11/02/16 06:19 12.5 MG Diltiazem HCl/ Dextrose (Cardizem Inj/D5 100ml) 125 ml @ 0 mls/hr Q0M PRN IV 11/01/16 20:15 12/01/16 20:14 11/02/16 10:31 10 MLS/HR Rivaroxaban (Xarelto Tab) 20 mg HS PO 11/02/16 21:00 12/02/16 20:59 (Carmen Meza, PA-C) Objective Vital Signs Date Time Temp Pulse Resp B/P Pulse Ox O2 Delivery O2 Flow Rate FiO2 11/02/16 07:34 115 18 94 Nasal Cannula 2.0 11/02/16 04:00 Nasal Cannula 2.0 11/02/16 03:50 37.3 95 18 100/61 90 Nasal Cannula 2.0 11/02/16 02:44 122/66 11/02/16 01:38 103 18 95 Nasal Cannula 3.0 11/02/16 00:00 Nasal Cannula 2.0 11/01/16 23:46 37.0 66 18 106/63 91 Nasal Cannula 2.0 11/01/16 21:00 36.8 80 16 121/79 94 Nasal Cannula 2.0 11/01/16 20:05 82 22 94 Nasal Cannula 2.0 11/01/16 18:04 37.1 140 20 139/80 92 Nasal Cannula 2.0 11/01/16 16:00 Nasal Cannula 2.0 11/01/16 15:47 37.0 92 21 129/83 92 Room Air 11/01/16 14:30 88 18 94 Nasal Cannula 2.0 11/01/16 12:50 36.8 95 18 93 2.0 11/01/16 12:40 Nasal Cannula 2.0 11/01/16 12:30 36.2 85 20 150/70 90 Nasal Cannula 2.0 11/01/16 12:00 Nasal Cannula 2.0 (Carmen Meza ., PA-C) Physical Exam General Appearance: no apparent distress Eyes: normal inspection, PERRL ENT: hearing grossly normal Neck: supple Respiratory/Chest: lungs clear, no respiratory distress, no accessory muscle use, + decreased breath sounds Cardiovascular: + irregularly irregular Abdomen: normal bowel sounds, non tender, soft Extremities: no pedal edema, no calf tenderness Neurologic/Psychiatric: alert, normal mood/affect, oriented x 3 Skin: normal color, warm/dry, no rash (Carmen Meza ., PA-C) Laboratory Results Last 24 Hours Test 11/01/16 09:20 11/02/16 04:43 C-Reactive Protein 9.99 mg/dl Procalcitonin 0.10 ng/mL White Blood Count 6.25 K/uL Red Blood Count 4.99 M/uL Hemoglobin 14.4 g/dL Hematocrit 41.4 % Mean Corpuscular Volume 83.0 fL Mean Corpuscular Hemoglobin 28.9 pg Mean Corpuscular Hemoglobin Concent 34.8 g/dl Platelet Count 200 K/uL Mean Platelet Volume 9.9 fL Neutrophils (%) (Auto) 67.6 % Lymphocytes (%) (Auto) 16.2 % Monocytes (%) (Auto) 11.7 % Eosinophils (%) (Auto) 3.5 % Basophils (%) (Auto) 0.8 % Neutrophils # (Auto) 4.23 K/uL Lymphocytes # (Auto) 1.01 K/uL Monocytes # (Auto) 0.73 K/uL Eosinophils # (Auto) 0.22 K/uL Basophils # (Auto) 0.05 K/uL RDW Standard Deviation 40.3 fL RDW Coefficient of Variation 13.4 % Immature Granulocyte % (Auto) 0.2 % Immature Granulocyte # (Auto) 0.01 K/uL Sodium Level 137 mmol/L Potassium Level 4.3 mmol/L Chloride Level 101 mmol/L Carbon Dioxide Level 29 mmol/L Anion Gap 7.0 mmol/L Blood Urea Nitrogen 26 mg/dl Creatinine 1.30 mg/dl Est Creatinine Clear Calc Drug Dose 66.0 ml/min Estimated GFR () 70.2 Estimated GFR (Non- 60.6 BUN/Creatinine Ratio 20.1 Random Glucose 93 mg/dl Calcium Level 9.2 mg/dl Magnesium Level 2.1 mg/dl (Carmen Meza, PA-C) Assessment and Plan 56 y/o male with PMH of atrial fibrillation, GERD, Hypercholesterolemia here after he presented to his PCP's office this morning with persistent productive cough and SOB and found to have a oxygen saturation of 91%. Acute hypoxic respiratory distress : Pneumonia vs CHF - Admit tele -- Transfer to med/surg on 11/01. Patient was transferred back to telemetry on 11/01 PM due to a.fib with RVR. - Continue O2 per protocol- 3L currently, does NOT wear O2 at home. Currently off O2 - CXR- Cardia megaly. Congestive failure. - Blood cultures- NGTD - Influenza swab negative - Doxycycline 100 mg BID and Augmentin 875 mg BID (has tolerated amoxicillin with no problem)- (started on 11/01) - Follow BMP and CBC - DuoNeb - Lozenges PRN for sore throat Atrial fibrillation, with RVR: - Continue Metoprolol 12.5 mg BID and Flecainide 150 mg q12h - Aspirin for AC - Started Diltiazem drip - Consult cardiology, appreciate recommendations. Patient has required cardioversion in the past. -- Cardiovert on 11/02 Hypercholesterolemia: - Atorvastatin 10 mg PO daily GERD: - Protonix 40 mg daily DVT prophylaxis: - Heparin 5000 units SQ q12 hrs Code status: - LEVEL I, FULL Dispo: - Return to home when medically stable- likely on 11/03 (Carmen Meza, PA-C) i personally examined pt and verified all rehman points ovi Meza PAC feeling better rate still up initially - plan was for cardioversion - then spontaneously converted vitals noted, nad breathing unlabored hypoxia from pneumonia - improving afib RVR - asymptomatic but rates really erratic - initially was planned for cardioversion then converted --> follow at least into tomrorow otherwise as above on xarelto (Alvaro Keith D.Bronwyn.)
[2016-11-02] MEDS ORDERED: DILTIAZEM BOLUS / DRIP IV STA (08:17)
[2016-11-02] MEDS ORDERED: DILTIAZEM HCL 5 MG/ML 5 ML VIAL IV SCH (08:30)
[2016-11-02] MEDS: PANTOprazole SOD 40 MG TAB PO SCH (08:32)
[2016-11-02] MEDS: ATORVASTATIN 10 MG TAB PO SCH (08:32)
[2016-11-02] MEDS: ASPIRIN 325 MG ECTAB PO SCH (08:32)
[2016-11-02] MEDS: BuPROPion SR 100 MG TABCR PO SCH ×2 (08:32→20:22)
[2016-11-02] MEDS: ALLOPURINOL 100 MG TAB PO SCH (08:32)
[2016-11-02] MEDS: DOXYCYCLINE HYCLATE 100 MG CAP PO SCH ×2 (08:32→20:22)
[2016-11-02] MEDS: AMOXICILLIN/CLAVULANATE TAB 875 MG TAB PO SCH ×2 (08:32→17:02)
[2016-11-02] MEDS: HEPARIN SOD 5000 UNIT/0.5 ML CARP SQ SCH (08:36)
[2016-11-02] MEDS: DILTIAZEM HCL INJ 125 MG in DEXTROSE 5% 100ML IV PRN ×2 (08:45→10:31)
[2016-11-02] MEDS ORDERED: RIVAROXABAN 20 MG TAB PO SCH (09:00)
--- NOTE | 2016-11-02 14:31 | CARDIOLOGY CONSULTATION ---
DATE OF CONSULTATION: 11/02/2016 REQUESTING PHYSICIAN: Alvaro Keith DO JOURNEYMAN LINEMAN: Lux Rajan DO of [facility]. REASON FOR CONSULTATION: Recurrent atrial flutter. Dear Alvaro: Thank you for requesting cardiology consultation on Huang with regards to his recurrent atrial arrhythmias. As you know, he has had a past history of atrial fibrillation and with flecainide, had atrial flutter, status post cardioversion in June 2014. I had actually seen him this week in the office on October 30 and he was in sinus rhythm and was feeling well. He did have a cough, but he was not hypoxemia and his pulse ox was actually 96%. He notes that over the ensuing 12-24 hours, he had worsening productive cough and could not stop coughing all night. He was seen in walk-in clinic, where he was found to be hypoxemia and was admitted for concern with hypoxic respiratory distress related to pneumonia. He was placed on antibiotics. He notes he is starting to feel better. His admission EKG revealed sinus rhythm and on the telemetry strips here in the hospital, he was in sinus rhythm. Last evening, he went into atrial flutter and then converted back to sinus with PACs and at approximately 01:45 in the morning, converted to flutter and has remained in flutter with rates that have been difficult to control. He notes last night he thought he felt some palpitations initially when he was in flutter, but today even with a heart rate of 100 beats per minute, he is not feeling it. I did discuss by phone with his and she notes he has had some episodes where he has been warm and slightly flush at home and she wonders if those episodes warrant periods of flutter, although they never took his heart rate and he was unaware of any palpitations. Before he was sick, he denied any chest pain, chest pressure, or chest heaviness. His level of activity had been relatively stable. He does get more sedentary over the weekend. Today at work, he does have to do some lifting and has no difficulty doing it. He denies any lightheadedness, dizziness, presyncope or syncope, lower extremity edema, or symptoms of claudication. His weight was up about 9 pounds over the winter and he notes much of that he attributes to the fact that he has been unable that his dog and he has not been walking twice a day. The rest of review of systems otherwise negative. PAST MEDICAL HISTORY: 1. Paroxysmal atrial fibrillation and paroxysmal atrial flutter, now on flecainide, status post cardioversion for atrial flutter in June 2014. 2. Hyperlipidemia. 3. ADHD. 4. Negative stress echo for ischemia in the fall of 2012. 5. First-degree AV block with a nonspecific IVCD. FAMILY HISTORY: Mom is at the age of 80, had a bypass surgery at 62. She had 1 kidney and diabetes. SOCIAL HISTORY: He smokes a rare cigar. Denies any alcohol. He works part-time at the [employer]. He is . ALLERGIES: KEFLEX. MEDICATIONS: Reviewed in electronic medical record. PHYSICAL EXAMINATION: GENERAL: He is awake, alert and oriented x3. He does have a cough. VITAL SIGNS: His heart rate is 110, respirations 20, blood pressure 106/70, and he is 93% on room air. HEENT: 2+ carotid upstrokes. No evidence of carotid bruits. Jugular venous pressure appeared normal. His sclerae are anicteric. His hearing is normal. LUNGS: He had decreased breath sounds in the bases. No rhonchi or wheezing. HEART: Tachycardic, irregular. No appreciable murmurs, rubs or gallops. ABDOMEN: Soft, nontender, and nondistended. Positive bowel sounds. EXTREMITIES: No clubbing, cyanosis or edema. SKIN: No ecchymosis or bruising. NEUROLOGIC: Grossly nonfocal. DIAGNOSTIC STUDIES: hall monitor, atrial flutter with a rapid ventricular response. Chest x-ray, cardiomegaly, cannot exclude congestive heart failure. His ProBNP is 102. His sodium 137, potassium 4.1, BUN 21, and creatinine 1.2. His AST and ALT are normal. Troponin was negative. His hemoglobin is 14.4 and his platelet count is 200. His rapid flu was negative. IMPRESSION: 1. Recurrent atrial flutter with a history of paroxysmal atrial fibrillation on flecainide 150 mg b.i.d. with beta blockers as an outpatient. 2. CHADS2-VASc score of 1 that being hypertension. 3. Negative stress echo for ischemia in 2012. 4. Outpatient EKG this past week with sinus rhythm, first degree AV block and nonspecific IVCD. This flutter has been difficult to control. Dr. Keith of the hospitalist service placed him on Xarelto last evening. We discussed cardioversion as a way to try to get him back into sinus rhythm. jail, we may need to consider switching him to a different antiarrhythmic and/or consideration of an AFib and atrial flutter ablation. He did eat breakfast this morning and in light of that, Dr. Allison of [facility] cardiology has been gracious enough to cardiovert him this afternoon with anesthesia and that will be arranged through the incinerator plant laborer. He will need to remain on Xarelto for a minimum of 4 weeks post-cardioversion. He should remain on flecainide and beta blockers. If he were to have recurrent atrial arrhythmias while in the hospital after cardioversion, we may need to consider amiodarone in the short term in order to maintain sinus rhythm until more definitive treatment can be considered either with the use of a different antiarrhythmic like sotalol or Tikosyn or ablative therapy. All this was discussed with Huang as well as his as well as Dr. Allison and the incinerator plant laborer.
[2016-11-02] MEDS: RIVAROXABAN 20 MG TAB PO SCH (20:22)
[2016-11-03] VITALS (10 sets, daily range): BP systolic 111–139; BP diastolic 67–99; PULSE 76–125; TEMP 36.7–36.9; O2SAT 91–97
[2016-11-03] MEDS: LEVALBUTEROL 1.25MG/0.5ML NEB INH SCH ×4 (01:46→19:34)
[2016-11-03] MEDS: IPRATROPIUM BROMIDE NEB SOLN 0.02% 2.5 ML VIAL INH SCH ×4 (01:46→19:34)
[2016-11-03] MEDS: METOPROLOL SUCC 25MG EXT REL TAB PO SCH (06:01)
[2016-11-03] MEDS: FLECAINIDE ACETATE 100 MG TAB PO SCH (06:01)
[2016-11-03 06:17] LABS: HEMATOCRIT 40.9 % (42-52); MEAN CELL VOLUME 82.8 fL (80-100); MEAN CORPUSCULAR HEMOGLOBIN 29.4 pg (25-34); MEAN CORPUSCULAR HGB CONC 35.5 g/dl (32-36); MEAN PLATELET VOLUME 9.8 fL (7.4-10.4); PLATELET COUNT 219 K/uL (130-400); RED BLOOD COUNT 4.94 M/uL (4.7-6.1); WHITE BLOOD COUNT 3.81 K/uL (4.8-10.8)
[2016-11-03] MEDS ORDERED: NSS + 20MEQ KCL 1000ML 1,000 ML IV SCH (06:45)
[2016-11-03] MEDS ORDERED: NURSING VERBAL MED ORDER ONE (06:45)
[2016-11-03 07:20] LABS: BUN/CREATININE RATIO 23.6 (10-20); CALCIUM 9.1 mg/dl (8.5-10.1); CREATININE 1.1 mg/dl (0.60-1.40); POTASSIUM 3.6 mmol/L (3.5-5.1)
[2016-11-03] MEDS ORDERED: AMIODARONE IV BOLUS / DRIP IV STA (08:15)
[2016-11-03] MEDS: BuPROPion SR 100 MG TABCR PO SCH ×2 (08:22→20:40)
[2016-11-03] MEDS: DOXYCYCLINE HYCLATE 100 MG CAP PO SCH ×2 (08:22→20:41)
[2016-11-03] MEDS: ATORVASTATIN 10 MG TAB PO SCH (08:22)
[2016-11-03] MEDS: ALLOPURINOL 100 MG TAB PO SCH (08:22)
[2016-11-03] MEDS: PANTOprazole SOD 40 MG TAB PO SCH (08:22)
[2016-11-03] MEDS: ASPIRIN 325 MG ECTAB PO SCH (08:22)
[2016-11-03] MEDS: AMOXICILLIN/CLAVULANATE TAB 875 MG TAB PO SCH ×2 (08:22→16:22)
[2016-11-03] MEDS ORDERED: AMIODARONE / D5W 100 ML IV ONE (08:45)
[2016-11-03] MEDS ORDERED: AMIODARONE / D5W 200 ML IV SCH (09:00)
[2016-11-03] MEDS: AMIODARONE / D5W 200 ML IV SCH (15:13)
[2016-11-03] MEDS ORDERED: DILTIAZEM BOLUS / DRIP IV STA (15:23)
[2016-11-03] MEDS ORDERED: DILTIAZEM HCL INJ 125 MG in DEXTROSE 5% 100ML IV PRN (16:00)
[2016-11-03] MEDS ORDERED: DILTIAZEM HCL 5 MG/ML 5 ML VIAL IV SCH (16:00)
[2016-11-03] MEDS ORDERED: POTASSIUM CHLORIDE 10 MEQ TABCR PO ONE (16:00)
[2016-11-03] MEDS: NSS + 20MEQ KCL 1000ML 1,000 ML IV SCH (16:14)
--- NOTE | 2016-11-03 19:12 | Progress Note ---
Subjective Date of Service: Nov 03, 2016. Subjective Pt evaluation today including: conversation w/ patient, conversation w/ family , physical exam, chart review, review of inpatient medication list feeling better but went into rapid afib early this AM - then back to NSR, then later back to afib no sob no palpitations no sx Problem List Medical Problems: (1) Productive cough Status: Acute Review of Systems ros otherwise negative except for as above Objective Vital Signs Date Time Temp Pulse Resp B/P Pulse Ox O2 Delivery O2 Flow Rate FiO2 11/03/16 16:00 Room Air 11/03/16 15:56 36.8 125 18 114/72 92 Nasal Cannula 2.0 11/03/16 14:09 88 18 97 Room Air 11/03/16 12:00 Room Air 11/03/16 11:31 36.8 77 18 120/72 96 2.0 11/03/16 08:00 Room Air 11/03/16 07:31 88 18 97 Room Air 11/03/16 07:20 36.9 121 18 139/99 91 Room Air 11/03/16 04:41 36.8 77 18 130/81 95 Room Air 11/03/16 04:06 Room Air 11/03/16 01:46 88 18 93 Room Air 11/03/16 00:41 Room Air 11/02/16 23:48 37.0 75 18 99/64 92 Room Air 11/02/16 20:18 Room Air 11/02/16 19:53 36.6 82 18 109/72 90 Room Air 11/02/16 19:17 88 18 94 Room Air Physical Exam General Appearance: no apparent distress Eyes: EOMI ENT: hearing grossly normal Neck: trachea midline Respiratory/Chest: no respiratory distress, no accessory muscle use Cardiovascular: + tachycardia, + irregularly irregular Neurologic/Psychiatric: material mixer II-XII nml as tested, alert Skin: normal color, warm/dry Laboratory Results Last 24 Hours Test 11/03/16 05:50 White Blood Count 3.81 K/uL Red Blood Count 4.94 M/uL Hemoglobin 14.5 g/dL Hematocrit 40.9 % Mean Corpuscular Volume 82.8 fL Mean Corpuscular Hemoglobin 29.4 pg Mean Corpuscular Hemoglobin Concent 35.5 g/dl RDW Standard Deviation 40.5 fL RDW Coefficient of Variation 13.4 % Platelet Count 219 K/uL Mean Platelet Volume 9.8 fL Sodium Level 139 mmol/L Potassium Level 3.6 mmol/L Chloride Level 101 mmol/L Carbon Dioxide Level 24 mmol/L Anion Gap 14.0 mmol/L Blood Urea Nitrogen 26 mg/dl Creatinine 1.10 mg/dl Est Creatinine Clear Calc Drug Dose 78.0 ml/min Estimated GFR () 85.9 Estimated GFR (Non- 74.1 BUN/Creatinine Ratio 23.6 Random Glucose 96 mg/dl Calcium Level 9.1 mg/dl Assessment and Plan Acute hypoxic respiratory distress : -improved pneumonia -improved, continue antibiotics Atrial fibrillation, with RVR: - erratic - xarelto in case cardioversion needed - change flecanide to amio (cardiology recs from yesterday), metoprolol, dilt IV - continue to follow Hypercholesterolemia: - Atorvastatin 10 mg PO daily GERD: - Protonix 40 mg daily DVT prophylaxis: - Heparin 5000 units SQ q12 hrs Code status: - LEVEL I, FULL
[2016-11-03] MEDS: RIVAROXABAN 20 MG TAB PO SCH (20:40)
[2016-11-04] VITALS (7 sets, daily range): BP systolic 111–146; BP diastolic 67–79; PULSE 64–118; TEMP 36.4–36.7; O2SAT 92–95
[2016-11-04] MEDS: IPRATROPIUM BROMIDE NEB SOLN 0.02% 2.5 ML VIAL INH SCH ×2 (02:04→07:09)
[2016-11-04] MEDS: LEVALBUTEROL 1.25MG/0.5ML NEB INH SCH ×2 (02:04→07:09)
[2016-11-04] MEDS: AMIODARONE / D5W 200 ML IV SCH (02:52)
[2016-11-04] MEDS: NSS + 20MEQ KCL 1000ML 1,000 ML IV SCH (04:49)
[2016-11-04 06:13] LABS: HEMATOCRIT 38.4 % (42-52); MEAN CELL VOLUME 83.7 fL (80-100); MEAN CORPUSCULAR HEMOGLOBIN 28.8 pg (25-34); MEAN CORPUSCULAR HGB CONC 34.4 g/dl (32-36); MEAN PLATELET VOLUME 10.1 fL (7.4-10.4); PLATELET COUNT 229 K/uL (130-400); RED BLOOD COUNT 4.59 M/uL (4.7-6.1); WHITE BLOOD COUNT 4.13 K/uL (4.8-10.8)
[2016-11-04] MEDS: METOPROLOL SUCC 25MG EXT REL TAB PO SCH (06:33)
[2016-11-04 07:06] LABS: CALCIUM 8.7 mg/dl (8.5-10.1); POTASSIUM 4.3 mmol/L (3.5-5.1)
[2016-11-04] MEDS: ALLOPURINOL 100 MG TAB PO SCH (08:00)
[2016-11-04] MEDS: ASPIRIN 325 MG ECTAB PO SCH (08:00)
[2016-11-04] MEDS: ATORVASTATIN 10 MG TAB PO SCH (08:00)
[2016-11-04] MEDS: BuPROPion SR 100 MG TABCR PO SCH (08:01)
[2016-11-04] MEDS: DOXYCYCLINE HYCLATE 100 MG CAP PO SCH (08:01)
[2016-11-04] MEDS: AMOXICILLIN/CLAVULANATE TAB 875 MG TAB PO SCH (08:01)
[2016-11-04] MEDS: PANTOprazole SOD 40 MG TAB PO SCH (08:02)
[2016-11-04] MEDS ORDERED: AMOX1TAB43 PO (11:06)
[2016-11-04] MEDS ORDERED: CRD200 PO (11:06)
[2016-11-04] MEDS ORDERED: DXY100 PO (11:06)
[2016-11-04] MEDS ORDERED: XRL20 PO (11:06)
--- NOTE | 2016-11-04 11:16 | Discharge Instructions ---
Discharge Instructions Admission Reason for Admission: Hypoxia, Respiratory Distress Discharge Discharge Diagnosis / Problem: pneumonia, afib Discharge Goals Goal(s): Diagnostic testing, Therapeutic intervention Activity Recommendations Activity Limitations: resume your previous activity . Instructions / Follow-Up Instructions / Follow-Up a) pneumonia -this got better quickly - we'll just need to finish out 6 more doses of the antibiotics you have been on (augmentin and doxycycline) -- both are a dose in the morning and a dose at night, your next dose of both will be tonight -the cough and mucous will slowly get better, it can sometimes take a few weeks to totally go away. if you get worse/feel more short of breath/have a fever, we 'd want you to get looked at right away, but overall we'll expect that you'll just continue to slowly feel better each day -as happens with pneumonias, your white blood cell count bounced around a little while you were here -- initially somewhat elevated, now just very slightly low. again, this fits with what we'll frequently see when things like this are being treated - but for completeness, we'll want Dr Penn to repeat bloodwork in about a week to ensure things have gotten back to totally normal; likewise he'll talk to you about possibly repeating a chest Xray in about 4 weeks to ensure things have totally cleared b) afib -your afib was "acting up" during your stay - likely provoked by the stress on heart, lungs, and metabolism from the pneumonia. things have improved, but your rhythms definitely showed themselves to be more than a bit erratic -- so "normal now" doesn't necessarily equal "problem solved" (more just "safe enough to carry on with this out of the hospital") -for now, we're switching from the flecainide twice a day to amiodarone 200mg twice a day (next dose tonight) -- Dr Rajan will then continue to adjust the dose (possibly changing things again as soon as this week). the amiodarone lasts in your system a long time, so it's not nearly as critical to be taking it "on the clock" like you had to do with the flecainide. i expect Dr Rajan to want to set you up with a heart monitor to follow how often you're in and out of afib, and how often you're racing, since it became clear that you didn't always feel the rates/rhythms -to make sure you're "covered" if he needs to set you up for a cardioversion or other rhythm procedure, you'll be on xarelto 20mg daily for the short-term but foreseeable future. during that time, reduce your aspirin to 81mg daily -as we discussed, being on blood thinners like xarelto can increase risk of bleeding/bruising - but usually not in a dangerous way. if you have bleeding that you can put pressure on (such as a nosebleed or a cut) - hold pressure. bleeding that responds to 10 minutes of pressure is more in the category of "annoying or frustrating" than "dangerous." However, if it is bleeding that does not respond to 10 minutes of pressure, or it is bleeding that you can't put pressure on (vomiting blood, pooping blood) then we'd want you to get to the hospital right away. -we're working on getting you set up with Dr Rajan for this coming week - our nurse navigator will be trying to get that in place -- but if you don't hear from her or from Dr Rajan's office by about 2pm tomorrow, please call his office to confirm. Current Hospital Diet Patient's current hospital diet: AHA Diet (Heart Healthy) Discharge Diet Recommended Diet: Regular Diet Pending Studies Studies pending at discharge: no Medical Emergencies . Who to Call and When: Medical Emergencies: If at any time you feel your situation is an emergency, please call 911 immediately. . Non-Emergent Contact Non-Emergency issues call your: Primary Care Provider, Landscape Drafter . . "Provider Documentation" section prepared by Alvaro Keith. VTE Core Measure Inpt VTE Proph given/why not?: Other Anticoagulation
--- NOTE | 2016-11-04 17:12 | Discharge Summary ---
Discharge Summary Admission Date: Oct 31, 2016 at 14:40 Discharge Date: Nov 04, 2016 Discharge Disposition: Home Principal Diagnosis: pneumonia w hypoxia Problems/Secondary Diagnoses: afib, RVR Immunizations: Have You Had Influenza Vaccine: No Influenza Vaccine Date: Jul 11, 2007 History of Tetanus Vaccine?: Yes History of Pneumococcal: No History of Hepatitis B Vaccine: No Procedures: CHEST ONE VIEW PORTABLE CLINICAL HISTORY: EVALUATE RESPIRATORY DISTRESS. DYSPNEA dyspnea COMPARISON STUDY: 07/12/2014 FINDINGS: Moderate cardiac megaly. Findings of developing congestive failure. Diaphragms are smooth. Costophrenic angles are sharp. IMPRESSION: Cardia megaly. Congestive failure. Electronically signed by: Musa Josue M.D. 10/31/2016 9:40 AM Dictated Date/Time: 10/31/2016 9:39 AM Last Resulted CBC 11/04/16 05:33 Last Resulted BMP 11/04/16 05:33 Consultations: cardiology Medication Reconciliation New Medications: Amiodarone HCl (Amiodarone HCl) 200 Mg Tab 200 MG PO BID, #60 TAB Amoxicillin & Pot Clavulanate (Amoxicillin/Clavulanate P) 1 Tab Tab 875 MG PO BIDM, #6 TAB Doxycycline Hyclate (Doxycycline Hyclate) 100 Mg Cap 100 MG PO BID, #6 CAP Rivaroxaban (Xarelto) 20 Mg Tab 20 MG PO HS, #30 TAB Continued Medications: Allopurinol (Zyloprim) 100 Mg Tab 1 TAB PO DAILY for gout for 30 Days, #30 TAB 5 Refills Aspirin (Aspirin) 325 Mg Tab Atorvastatin (Atorvastatin Calcium) 10 Mg Tab 10 MG PO QAM, #90 Bupropion Hcl (Wellbutrin Sr) 200 Mg Tabcr 200 MG PO BID, #180 Cholecalciferol (Vitamin D3) 1,000 Unit Tab 1 TAB PO DAILY for 30 Days, #30 TAB 5 Refills Coenzyme Q10 (Ubidecarenone) (Co Q10) 50 Mg Cap 100 MG PO DAILY, CAP Colchicine (Colcrys) 0.6 Mg Tab 1 TAB PO DAILY PRN for Pain Metoprolol Succinate (Metoprolol Succinate ER) 25 Mg Tabcr 12.5 MG PO QAM for 30 Days, 1 Refill Pantoprazole (Pantoprazole Sodium) 40 Mg Tab 40 MG PO DAILY, #180 Pramipexole (Mirapex) 0.125 Mg Tab 0.125 MG PO QID PRN for restless legs, TAB Ranitidine (Zantac) 150 Mg Tab 150 MG PO HS PRN for Sleep, 0 Refills Discontinued Medications: Flecainide Acetate (Flecainide Acetate) 100 Mg Tab 150 MG PO Q12 for 30 Days, TAB 1 Refill Discharge Exam Physical Exam: General Appearance: no apparent distress Eyes: EOMI ENT: hearing grossly normal Neck: trachea midline Respiratory/Chest: no respiratory distress, no accessory muscle use Cardiovascular: regular rate, rhythm Extremities: normal inspection Neurologic/Psychiatric: enforcement officer II-XII nml as tested, alert, normal mood/affect Skin: normal color, warm/dry Hospital Course Acute hypoxic respiratory distress : -improved, appeared due to pneumonia pneumonia -improved, continue antibiotics (doxy and augmentin) for total of 7 days -CXR ~4-6wks Atrial fibrillation, with RVR: - erratic - xarelto in case cardioversion needed (discussed risks/benefits) -- also anticipate this to likely be a short term need, duration to be dictated by cardiology - changed flecanide to amio (cardiology recs from last visit), metoprolol as previous. amio loaded IV, continue 200mg PO BID short term, ongoing med management to be dictated by cardiology - continue to follow up closely as outpt - ongoing f/u this week Hypercholesterolemia: - Atorvastatin 10 mg PO daily GERD: - Protonix 40 mg daily DVT prophylaxis: - Heparin 5000 units SQ q12 hrs --> xarelto Code status: - LEVEL I, FULL stable for home, answered all questions to the best of my ability Total Time Spent: Greater than 30 minutes This includes examination of the patient, discharge planning, medication reconciliation, and communication with other providers. Discharge Instructions Please refer to the electronic Patient Visit Report (Discharge Instructions) for additional information. Additional Copies To Lux Rajan DO; Fortunato Penn MD
[2017-02-11] MEDS ORDERED: LNX125 PO (15:39)
[2017-02-11] MEDS ORDERED: AMIO200T4 PO (15:39)
[2017-02-12] MEDS ORDERED: AMIO200T4 PO (08:03)
== END 2016-11-04 12:45 | disposition home or self-care (01) | DRG 194 ==
LOC: ENRESERVDT → ENRESERVTM → C.EDB 08:42 → C.2T 14:40 → C.MS2W 11-01 11:09 → C.2T 11-01 21:09
PROVIDERS: ADMIT Family Medicine; ATTEND Family Medicine
DX: J18.9 Pneumonia, unspecified organism (principal); I48.92 Unspecified atrial flutter; R09.02 Hypoxemia; I48.0 Paroxysmal atrial fibrillation; I44.0 Atrioventricular block, first degree; I49.1 Atrial premature depolarization; I10 Essential (primary) hypertension; E78.00 Pure hypercholesterolemia, unspecified; E78.5 Hyperlipidemia, unspecified; K21.9 Gastro-esophageal reflux disease without esophagitis; Z79.899 Other long term (current) drug therapy; Z79.82 Long term (current) use of aspirin

== ENCOUNTER 2016-12-02 07:27 | Emergency (ER) | payer BC ==
[~2016-12-02] VITALS: Ht 167.6 cm; Wt 89.1 kg
[~2016-12-02 07:27] MED LIST changes: +ALLO100T PO; +AMOX1TAB43 PO; -ASPEC81 PO; +ASPI325T45; +CHOL1000 PO; -CHOL100010 PO; +CRD200 PO; +DXY100 PO; -TMB100 PO; -XRL10 PO; +XRL20 PO
[2016-12-02 07:31] VITALS: TEMP 36.8; Ht 167.6 cm; Wt 89.1 kg
[2016-12-02] MEDS ORDERED: AMIO0.1T PO (08:06)
[2016-12-02] MEDS ORDERED: METO25TA3 PO (08:06)
--- NOTE | 2016-12-02 08:06 | EMERGENCY ROOM VISIT NOTE ---
History First contact with patient: 07:40 Chief Complaint: CARDIAC ASSESSMENT Stated Complaint: AFIB Nursing Triage Summary: Pt reports "I've been in a-fib all night." Pts reports HR in 140's this AM. No c/o chest pain or shortness of breath. History of Present Illness The patient is a 56 year old male who presents to the Emergency Room with complaints of being in A. fib. The patient has a history of A. fib. He states that approximately 9:30 last night he felt the change in his pulse. He continued in A. fib all night and this morning his pulse was in the 140s which is why he came to the emergency room. The patient denies any chest pain or shortness of breath. The patient is taking all his medications as prescribed. He is currently on Xarelto since his hospital stay here 1 month ago. He is scheduled to see Dr. Abdalla along with another digital cartographic technician from [place] on for his option since he has been going into A. fib more frequently. They're considering ablation. The patient does have a pulse ox at home and also a monitor. He states the lowest his oxygen went this current episode of A. fib was 90. Review of Systems 10 system review was performed and was negative unless stated otherwise history of present illness. Past Medical/Surgical History Medical Problems: (1) ADHD (attention deficit hyperactivity disorder) (2) Atrial fibrillation (3) GERD (gastroesophageal reflux disease) (4) High cholesterol (5) Hypoxia (6) Respiratory distress Family History No pertinent family history Social History Smoking Status: Never Smoker Alcohol Use: none Drug Use: none Marital Status: Housing Status: lives with significant other Current/Historical Medications Scheduled Allopurinol (Zyloprim), 1 TAB PO DAILY Amiodarone HCl (Amiodarone HCl), 200 MG PO BID Amoxicillin & Pot Clavulanate (Amoxicillin/Clavulanate P), 875 MG PO BIDM Atorvastatin (Atorvastatin Calcium), 10 MG PO QAM Bupropion Hcl (Wellbutrin Sr), 200 MG PO BID Cholecalciferol (Vitamin D3), 1 TAB PO DAILY Coenzyme Q10 (Ubidecarenone) (Co Q10), 100 MG PO DAILY Doxycycline Hyclate (Doxycycline Hyclate), 100 MG PO BID Metoprolol Succinate (Metoprolol Succinate ER), 12.5 MG PO QAM Pantoprazole (Pantoprazole Sodium), 40 MG PO DAILY Rivaroxaban (Xarelto), 20 MG PO HS Scheduled PRN Colchicine (Colcrys), 1 TAB PO DAILY PRN for Pain Pramipexole (Mirapex), 0.125 MG PO QID PRN for restless legs Ranitidine (Zantac), 150 MG PO HS PRN for Sleep Miscellaneous Medications Aspirin (Aspirin) Allergies Coded Allergies: Cephalexin (Verified Allergy, Unknown, ., 12/02/16) Physical Exam Vital Signs Date Time Temp Pulse Resp B/P Pulse Ox O2 Delivery O2 Flow Rate FiO2 12/02/16 07:45 73 12/02/16 07:41 Room Air 12/02/16 07:31 36.8 78 18 113/78 94 Room Air Physical Exam GENERAL: 56-year-old white male appears in no acute distress. MENTAL Status: Alert and oriented 3 EYES: PERRLA. EOMs intact. EARS: Canals clear. TMs without fluid level noted. NECK: Supple, no lymphadenopathy noted. No carotid bruits noted. LUNGS: Clear auscultation without wheezes rales or rhonchi. CARDIAC: Regular rate and rhythm without murmur. Pulses is full and equal throughout. ABDOMEN: Positive bowel sounds all 4 quadrants. Soft, nontender to palpation without organomegaly or masses. LOWER EXTREMITY: No cyanosis or edema noted. Calves are nontender. Medical Decision & Procedures ECG Indication: palpitations Rhythm: normal sinus Findings: no acute ischemic change ED Course The patient was evaluated. The patient was on a monitor and continuous pulse ox. EKG was ordered and interpreted as above without any findings of A. fib. The patient had converted on his way into the emergency room. I discussed the case with Dr. Moraes who agreed with treatment plan. The patient already has an appointment with Dr. Abdalla on for further evaluation and treatment of his recurrent A. fib. The patient was discharged home in stable condition. Medical Decision Since the patient had already converted prior to arriving at the emergency room and he did not have any chest pain or shortness of breath the patient was discharged. Impression Primary Impression: Atrial fibrillation Departure Information Dispostion Home / Self-Care Condition GOOD Referrals Hilario Zheng M.D. (PCP) Forms IMPORTANT VISIT INFORMATION Patient Instructions My [facility] Additional Instructions Continue all medications as prescribed. If you're in A. fib make sure your monitoring her pulse ox. If it is below 90% on room air, return to ER. If you experience any chest pain return to the ER. Keep scheduled appointment on with Dr. Davis.
[2016-12-02 08:14] VITALS: BP 110/67; PULSE 73; O2SAT 94
[2017-02-11] MEDS ORDERED: LNX125 PO (15:39)
[2017-02-11] MEDS ORDERED: AMIO200T4 PO (15:39)
[2017-02-12] MEDS ORDERED: AMIO200T4 PO (08:03)
== END 2016-12-02 08:16 | disposition home or self-care (01) ==
LOC: C.EDB 07:28
DX: I48.91 Unspecified atrial fibrillation (principal); E78.00 Pure hypercholesterolemia, unspecified; K21.9 Gastro-esophageal reflux disease without esophagitis; Z79.01 Long term (current) use of anticoagulants; Z79.899 Other long term (current) drug therapy

== ENCOUNTER → 2017-02-12 | Day surgery (SDC) | payer BC ==
[~2017-02-12] VITALS: Ht 165.1 cm; Wt 90.0 kg
[~2017-02-12] MED LIST changes: +AMIO200T4 PO; -AMOX1TAB43 PO; -ASPI325T45; -COEN1CAP28 PO; -CRD200 PO; -DXY100 PO; +LIDOCAINE HCL 2% 2 ML VIAL (20MG/ML) ONE; +LNX125 PO; +METO25TA3 PO; +PANT40TA2 PO; +PROPOFOL IV EMULSION 10 MG/ML 20 ML VIAL IV ONE; -PRT/40 PO; -TPRSR25 PO
[2017-02-12 07:00] VITALS: BP 153/116; PULSE 123; TEMP 36.5; O2SAT 95; Ht 165.1 cm; Wt 90.0 kg
[2017-02-12 07:35] VITALS: BP 130/105; PULSE 127; O2SAT 99
[2017-02-12 07:40] VITALS: BP 121/87; PULSE 63; O2SAT 99
[2017-02-12 07:45] VITALS: BP 115/75; PULSE 66; O2SAT 99
--- NOTE | 2017-02-12 07:53 | Cardiology Procedure Brief Nt ---
Preliminary Cardiology Note Procedure Date February 12, 2017. Pre-Procedure Diagnosis Atrial tachycardia Post-Procedure Diagnosis Atrial Tachycardia with latter-day of NSR Management Trainee Elenitain Steward/Stewardess Banquet(s) none Estimated Blood Loss none Preliminary Findings 200 Joules Biphasic back to NSR Specimens none Anesthesia Propfol provided by the anesthesia dept Complication(s) None Disposition
--- NOTE | 2017-02-12 07:57 | Discharge Instructions ---
Discharge Instructions Procedure Procedure Date: February 12, 2017. Reason for Visit: Cardioversion for Atach Discharge Discharge Date: February 12, 2017. Discharge Diagnosis: Atrial tachycardia Last Recorded Wt (Kilograms): 90 Anesthesia Post Anesthesia Instructions: If you have had IV Sedation: * Do not drive today. * Resume driving tomorrow * Do not make important decisions or sign legal documents today. * No using power tools * Call surgeon for: 1. Lightheadedness;dizziness 2. HR <55 Beat per minute 4. Persistent nausea and vomiting. 5. Medication intolerance (nausea, vomiting or rash). * For nausea and vomiting use only clear liquids such as: tea, soda, bouillon until nausea subsides, then gradually increase diet as tolerated. * If you have any concerns or questions, call your surgeon's office. If physician is unavailable and it is an emergency, call 911 or go to the nearest emergency room. Instructions Activity Recommendations: limitations (as above) Return to School/Work: with no limitations Recommended Home Diet: low sodium Allergies: Coded Allergies: Cephalexin (Verified Allergy, Unknown, ., 12/02/16) Follow Up ACTIVITY RECOMMENDATIONS: * May resume driving tomorrow. SPECIAL CARE: * May apply burn ointment for skin irritation. * Please contact physician for any lightheadedness, dizziness or palpitations. Your Doctors Instructions noted above were prepared by provider Lux Rajan. Patient Signature Section: Patient Instructions Signature Page Huang Ascencio Patient (or Guardian) Signature/Date: I have read and understand the instructions given to me by my caregivers. Caregiver/RN/Doctor Signature/Date: The above-named patient and/or guardian has received patient instructions on this date. + Original Patient Signature Page (only) stays with chart. Please make copy for patient.
--- NOTE | 2017-02-12 08:02 | Anesthesiology Progress Note ---
Anesthesia Post Op Note Date & Time February 12, 2017 at 08:02 Vital Signs Pain Intensity: 0 Vital Signs Past 12 Hours Date Time Temp Pulse Resp B/P Pulse Ox O2 Delivery O2 Flow Rate FiO2 02/12/17 07:56 67 18 110/79 95 Room Air 02/12/17 07:46 71 18 107/79 95 Room Air 02/12/17 07:45 66 16 115/75 99 Nasal Cannula 4 02/12/17 07:40 63 16 121/87 99 Nasal Cannula 4 02/12/17 07:35 127 16 130/105 99 Nasal Cannula 4 02/12/17 07:00 36.5 123 16 153/116 95 Room Air Notes Mental Status: alert / awake / arousable, participated in evaluation Pt Amnestic to Procedure: Yes Nausea / Vomiting: adequately controlled Pain: adequately controlled Airway Patency, RR, SpO2: stable & adequate BP & HR: stable & adequate Hydration State: stable & adequate Anesthetic Complications: no major complications apparent
--- NOTE | 2017-02-12 08:36 | OPERATIVE REPORT ---
DATE OF OPERATION: 02/12/2017 CARDIOVERSION INDICATIONS: Recurrent atrial tachycardia status post aFib ablation. The patient was brought to the cardiac catheterization laboratory. He has been on Xarelto for more than 3 weeks and he has been loaded with amiodarone over the last month. DESCRIPTION OF PROCEDURE: Anesthesia was provided by the anesthesia department with propofol. Once patient was adequately sedated, he was DC cardioverted using 200 joules in a biphasic sync mode with sabianism of normal sinus rhythm. There were no complications with the procedure. At the end of the procedure, he was answering all questions and moving all extremities. His medications were adjusted including stopping his digoxin and reducing his amiodarone to 200 mg a day. I attest to the content of the Intraoperative Record and any orders documented therein. Any exceptions are noted below. LINDA
[2017-02-12 09:00] VITALS: BP 130/77; PULSE 72; O2SAT 96
== END | disposition home or self-care (01) ==
LOC: C.CATH 06:28
PROVIDERS: ATTEND Internal Medicine Cardiovascular Disease
DX: I47.1 Supraventricular tachycardia (principal); I48.0 Paroxysmal atrial fibrillation; I10 Essential (primary) hypertension; E78.00 Pure hypercholesterolemia, unspecified; K21.9 Gastro-esophageal reflux disease without esophagitis; F17.200 Nicotine dependence, unspecified, uncomplicated; Z98.890 Other specified postprocedural states; Z68.33 Body mass index [BMI] 33.0-33.9, adult; Z98.49 Cataract extraction status, unspecified eye; Z83.3 Family history of diabetes mellitus

== ENCOUNTER 2017-11-20 15:56 | Inpatient (IN) | payer BC, OTHER ==
[~2017-11-20] VITALS: Ht 167.6 cm; Wt 96.5 kg
[~2017-11-20 15:56] MED LIST changes: -LIDOCAINE HCL 2% 2 ML VIAL (20MG/ML) ONE; -LNX125 PO; -LPT10 PO; -PANT40TA2 PO; +PRAM0.1212 PO; -PRAM0.129 PO; -PROPOFOL IV EMULSION 10 MG/ML 20 ML VIAL IV ONE; -WLLSR/200 PO; -ZNTT/150 PO
[2017-11-20] MEDS ORDERED: RANI150T85 PO (15:59)
--- NOTE | 2017-11-20 17:06 | EMERGENCY ROOM VISIT NOTE ---
ED Visit Note First contact with patient: 16:39 CHIEF COMPLAINT: Shortness of breath and chills HISTORY OF PRESENTING ILLNESS: This is a 57-year-old male with past medical history significant for atrial fibrillation and pacemaker placement who presents to the emergency department with complaints of shortness of breath and chills that started around 2 PM today. Patient states that he had a routine colonoscopy this morning around 9 AM. Patient's reports that he vomited and was suspected to aspirate during the procedure, he initially had low oxygen in the 80s and low blood pressure 80s/50s, and required a dose of epinephrine to improve his blood pressure. His states that his oxygen then returned to normal and he was able to be discharged home after his colonoscopy. Patient started to feel chills on the way home and began to feel short of breath. He denies any chest pain, cough, hemoptysis, dizziness or syncope, headache, nausea or vomiting. He has not had any registered fevers. He did not take any Tylenol or Motrin for his chills prior to arrival. He denies any lung disease or history of lung problems. REVIEW OF SYSTEMS: A complete 10 point review of systems was reviewed with the patient with pertinent positives and negatives as per history of present illness. All else were negative. PAST MEDICAL HISTORY: Reviewed in chart. SOCIAL HISTORY: Lives at home with . Denies tobacco use, alcohol or recreational drug use. ALLERGIES: Reviewed in chart. PHYSICAL EXAM: CONSTITUTIONAL: Pleasant and cooperative. No acute distress, but appears uncomfortable, covered in blankets. Pale, but well hydrated. HEENT: Normocephalic, atraumatic. Pupils equal, round and reactive to light, EOMI. TMs normal. Pharynx normal. Moist mucous membranes. NECK: Supple, full active range of motion without discomfort. RESPIRATORY: Diminished in bilateral bases, but otherwise clear to auscultation bilaterally with no wheezing, crackles, rhonchi or stridor. Equal expansion bilaterally. CARDIOVASCULAR: Regular rate and rhythm with no murmurs, rubs or gallops. Normal peripheral perfusion. No edema. GASTROINTESTINAL: Soft, nontender, nondistended. No palpable masses or HSM. Bowel sounds present in all quadrants. MUSCULOSKELETAL: Full range of motion of all joints without discomfort. INTEGUMENTARY: No rash or other significant dermatologic conditions noted. NEUROLOGIC: Alert and oriented X 4 with normal affect. Cranial nerves II-XII grossly intact. No focal neurologic deficits noted. Normal strength and sensation all 4 extremities. Normal speech. Normal gait observed. ED COURSE AND MEDICAL DECISION MAKING: CC: Patient presenting with complaint of shortness of breath and chills DIFFERENTIAL DIAGNOSIS: Includes, but not limited to viral URI, bronchitis, pneumonia, aspiration pneumonitis, influenza, acute coronary syndrome INTERPRETATION OF LABS: Mild leukocytosis with left shift, no anemia, no significant electrolyte abnormalities, normal renal function, normal liver enzymes. UA negative. Influenza A/B is negative. Negative troponin 2. IMAGING: CHEST 2 VIEWS ROUTINE CLINICAL HISTORY: Respiratory distress COMPARISON STUDY: 10/31/2016 FINDINGS: There is a left subclavian pacemaker present. The heart is enlarged. There is no focal pulmonary consolidation. There is mild asymmetric interstitial thickening/edema left greater than right. There is no lobar consolidation. There are no pleural effusions. IMPRESSION: Mild asymmetric interstitial thickening/edema left greater than right. No evidence of lobar consolidation. Cardiomegaly. EKG: Shows ventricular paced rhythm with a rate of 71 bpm, with an underlying a flutter rhythm by my interpretation. When compared to previous EKG from 2016, ventricular paced rhythm is now new. MEDICATION RECONCILIATION: I attest that I have personally reviewed the patient 's current medication list. INITIAL VITAL SIGNS REVIEW: I reviewed the patient's initial vital signs and interpret them as follows: T: Afebrile; BP: Hypertensive; HR: Within normal limits; RR: Within normal limits; Pulse Ox: Within normal limits on room air. Blood pressure screening: The patient was found to have an elevated blood pressure and was referred to the patient hospitalist team for further management. SUMMARY: Patient was evaluated at bedside, history and physical exam performed. Patient is alert and oriented, no acute distress, but is complaining of feeling chilled and short of breath, resting in the stretcher covered in blankets. Lungs are diminished in the bases bilaterally, but no abnormal rhonchi or wheezes heard. Patient noted to be 91% on room air, was placed on 2 L nasal cannula with improvement to 94% and states that his shortness of breath feels somewhat better. Orders were placed at bedside for labs, EKG, chest x-ray to evaluate for cardiopulmonary disease. Patient discussed with Dr. Ortega, who agrees with my assessment and plan. Labs and imaging reviewed as above, chest x-ray concerning for inflammation secondary to aspiration. Patient reassessed multiple times throughout ED stay, he reports he feels much improved after being placed on oxygen, and his sats have been maintaining between 94 and 96% on nasal cannula. Patient was referred to [facility] service, who evaluated the patient and is admitting him. Patient was updated on all results and plan for admission, he verbalized understanding and was agreeable to this plan. The patient was stable at time of admission. Problem List Medical Problems: (1) ADHD (attention deficit hyperactivity disorder) Status: Chronic (2) Atrial fibrillation Status: Chronic (3) GERD (gastroesophageal reflux disease) Status: Chronic (4) High cholesterol Status: Chronic Current/Historical Medications Scheduled Allopurinol (Zyloprim), 100 MG PO HS Atorvastatin (Lipitor), 10 MG PO HS Bupropion Hcl (Wellbutrin Sr), 200 MG PO BID Cholecalciferol (Vitamin D3), 1,000 INTER.UNIT PO QAM Metoprolol Succ (Toprol Xl) (Toprol-Xl), 25 MG PO BID Pantoprazole (Pantoprazole Sodium), 40 MG PO QAM Rivaroxaban (Xarelto), 20 MG PO QPM Scheduled PRN Colchicine (Colcrys), 0.6-1.2 MG PO DAILY PRN for Gout Pain Ranitidine (Zantac), 150 MG PO HS PRN for Indigestion Allergies Coded Allergies: Cephalexin (Verified Allergy, Unknown, ., 12/02/16) Vital Signs Date Time Temp Pulse Resp B/P (MAP) Pulse Ox O2 Delivery O2 Flow Rate FiO2 11/20/17 21:36 71 16 136/99 94 Room Air 11/20/17 21:17 73 11/20/17 19:53 73 20 123/75 94 Nasal Cannula 2.0 11/20/17 18:15 77 16 141/76 95 Nasal Cannula 2.0 11/20/17 17:21 94 Nasal Cannula 2.0 11/20/17 17:17 70 11/20/17 17:15 85 Room Air 11/20/17 16:05 Room Air 11/20/17 16:02 36.7 82 18 136/90 93 Room Air Laboratory Results 11/20/17 17:15 Red Blood Count 5.07, Mean Corpuscular Volume 84.2, Mean Corpuscular Hemoglobin 29.8, Mean Corpuscular Hemoglobin Concent 35.4, Mean Platelet Volume 9.9, Neutrophils (%) (Auto) 87.8, Lymphocytes (%) (Auto) 5.6, Monocytes (%) (Auto) 5.7, Eosinophils (%) (Auto) 0.6, Basophils (%) (Auto) 0.2, Neutrophils # (Auto) 9.79, Lymphocytes # (Auto) 0.62, Monocytes # (Auto) 0.63, Eosinophils # (Auto) 0.07, Basophils # (Auto) 0.02 11/20/17 17:15 Test 11/20/17 17:06 11/20/17 17:15 11/20/17 18:20 11/20/17 18:53 Influenza Type A Antigen Neg for Influ A (NEG) Influenza Type B Antigen Neg for Influ B (NEG) White Blood Count 11.14 K/uL (4.8-10.8) Red Blood Count 5.07 M/uL (4.7-6.1) Hemoglobin 15.1 g/dL (14.0-18.0) Hematocrit 42.7 % (42-52) Mean Corpuscular Volume 84.2 fL (80-100) Mean Corpuscular Hemoglobin 29.8 pg (25-34) Mean Corpuscular Hemoglobin Concent 35.4 g/dl (32-36) Platelet Count 180 K/uL (130-400) Mean Platelet Volume 9.9 fL (7.4-10.4) Neutrophils (%) (Auto) 87.8 % Lymphocytes (%) (Auto) 5.6 % Monocytes (%) (Auto) 5.7 % Eosinophils (%) (Auto) 0.6 % Basophils (%) (Auto) 0.2 % Neutrophils # (Auto) 9.79 K/uL (1.4-6.5) Lymphocytes # (Auto) 0.62 K/uL (1.2-3.4) Monocytes # (Auto) 0.63 K/uL (0.11-0.59) Eosinophils # (Auto) 0.07 K/uL (0-0.5) Basophils # (Auto) 0.02 K/uL (0-0.2) RDW Standard Deviation 41.0 fL (36.4-46.3) RDW Coefficient of Variation 13.5 % (11.5-14.5) Immature Granulocyte % (Auto) 0.1 % Immature Granulocyte # (Auto) 0.01 K/uL (0.00-0.02) Anion Gap 7.0 mmol/L (3-11) Est Creatinine Clear Calc Drug Dose 71.2 ml/min Estimated GFR () 74.5 Estimated GFR (Non- 64.3 BUN/Creatinine Ratio 15.5 (10-20) Calcium Level 9.1 mg/dl (8.5-10.1) Total Bilirubin 0.3 mg/dl (0.2-1) Aspartate Amino Transf (AST/SGOT) 21 U/L (15-37) Alanine Aminotransferase (ALT/SGPT) 26 U/L (12-78) Alkaline Phosphatase 103 U/L (45-117) Total Protein 7.7 gm/dl (6.4-8.2) Albumin 3.4 gm/dl (3.4-5.0) Globulin 4.3 gm/dl (2.5-4.0) Albumin/Globulin Ratio 0.8 (0.9-2) Urine Color YELLOW Urine Appearance CLEAR (CLEAR) Urine pH 5.0 (4.5-7.5) Urine Specific [place] 1.020 (1.000-1.030) Urine Protein NEG (NEG) Urine Glucose (UA) NEG (NEG) Urine Ketones NEG (NEG) Urine Occult Blood NEG (NEG) Urine Nitrite NEG (NEG) Urine Bilirubin NEG (NEG) Urine Urobilinogen NEG (NEG) Urine Leukocyte Esterase NEG (NEG) Bedside Troponin I < 0.030 ng/ml (0-0.045) Medications Administered Medications (Trade) Dose Ordered Sig/Nicko Route Start Time Stop Time Status Last Admin Dose Admin Ampicillin Sodium/ Sulbactam Sodium 3000 mg/Sodium Chloride 108 ml @ 200 mls/hr ONE ONCE IV 11/20/17 18:15 11/20/17 18:47 DC 11/20/17 18:15 200 MLS/HR Departure Information Impression Primary Impression: Aspiration into airway Dispostion Admitted as an inpatient Condition FAIR Referrals Hilario Zheng M.D. (PCP) Patient Instructions [facility] Problem Qualifiers Primary Impression: Aspiration into airway Encounter type: initial encounter Qualified Codes: T17.908A - Unspecified foreign body in respiratory tract, part unspecified causing other injury, initial encounter
[2017-11-20 17:42] LABS: BASO % 0.2 %; BASO ABS # 0.02 K/uL (0-0.2); EOS % 0.6 %; EOS ABS # 0.07 K/uL (0-0.5); HEMATOCRIT 42.7 % (42-52); HEMOGLOBIN 15.1 g/dL (14.0-18.0); IG# 0.01 K/uL (0.00-0.02); LYMPH % 5.6 %; LYMPH ABS # 0.62 K/uL (1.2-3.4); MEAN CELL VOLUME 84.2 fL (80-100); MEAN CORPUSCULAR HEMOGLOBIN 29.8 pg (25-34); MEAN CORPUSCULAR HGB CONC 35.4 g/dl (32-36); MEAN PLATELET VOLUME 9.9 fL (7.4-10.4); MONO % 5.7 %; MONO ABS # 0.63 K/uL (0.11-0.59); NEUT % 87.8 %; NEUT ABS # 9.79 K/uL (1.4-6.5); PLATELET COUNT 180 K/uL (130-400); RED CELL DISTRIBUTION WIDTH CV 13.5 % (11.5-14.5); WHITE BLOOD COUNT 11.14 K/uL (4.8-10.8)
--- NOTE | 2017-11-20 18:02 | DIAGNOSTIC IMAGING REPORT ---
CHEST 2 VIEWS ROUTINE CLINICAL HISTORY: Respiratory distress COMPARISON STUDY: 10/31/2016 FINDINGS: There is a left subclavian pacemaker present. The heart is enlarged. There is no focal pulmonary consolidation. There is mild asymmetric interstitial thickening/edema left greater than right. There is no lobar consolidation. There are no pleural effusions.[ IMPRESSION: Mild asymmetric interstitial thickening/edema left greater than right. No evidence of lobar consolidation. Cardiomegaly. Electronically signed by: Cordell Damon M.D. 11/20/2017 6:00 PM Dictated Date/Time: 11/20/2017 5:59 PM
[2017-11-20 18:04] LABS: INFLUENZA B ANTIGEN Neg for Influ B (NEG)
[2017-11-20] MEDS ORDERED: RIVA1TAB4 PO (18:06)
[2017-11-20 18:07] LABS: ALBUMIN 3.4 gm/dl (3.4-5.0); CALCIUM 9.1 mg/dl (8.5-10.1); CREATININE 1.23 mg/dl (0.60-1.40); POTASSIUM 4.4 mmol/L (3.5-5.1)
[2017-11-20 18:10] LABS: TOTAL PROTEIN 7.7 gm/dl (6.4-8.2)
[2017-11-20] MEDS ORDERED: AMPICILLIN/SULBACTAM SOD INJ 3,000 MG in SODIUM CHLORIDE 0.9% 100ML 100 ML IV ONE (18:15)
[2017-11-20] MEDS ORDERED: PANT40TA2 PO (19:46)
[2017-11-20] MEDS ORDERED: WLLSR/200 PO (19:46)
[2017-11-20] MEDS ORDERED: LPT10 PO (19:46)
[2017-11-20] MEDS ORDERED: ALUMINUM/MAGNESIUM/SIMETH (MAALOX MAX) 30 ML UDC PO PRN (21:45)
[2017-11-20] MEDS ORDERED: ONDANSETRON INJ 2 MG/ML 2 ML VIAL IV PRN (21:45)
[2017-11-20] MEDS ORDERED: ZOLPIDEM TARTRATE 5 MG TAB PO PRN (21:45)
[2017-11-20] MEDS ORDERED: MAGNESIUM HYDROXIDE SUSP 30 ML UDC PO PRN (21:45)
[2017-11-20] MEDS ORDERED: POLYETHYLENE (MIRALAX) 17 GM PACK PO PRN (21:45)
[2017-11-20] MEDS ORDERED: RANITIDINE HCL 150 MG TAB PO PRN (21:45)
[2017-11-20] MEDS ORDERED: ACETAMINOPHEN 325 MG TAB PO PRN (21:45)
--- NOTE | 2017-11-20 21:52 | History and Physical ---
History & Physical Date & Time of Service: Nov 20, 2017 at 21:40 Chief Complaint: Cold,Sob Primary Care Physician: Hilario Zheng M.D. History of Present Illness Source: patient 57 y/o M Hx AF, pacer, HPL, GERD, gout. Pt had a colonoscopy earlier and was suspected to have aspirated during the procedure. He was briefly hypoxic in the 80s and also had transient hypotension. He received a dose of epi following the procedure, gradually improved and was DCd home. The pt reports that at home, he developed rigors and SOB prompting him to attend the hospital. He was maintaining an adequate saturation on arrival and a fever was not confirmed. An initial CXR is read as asymmetric pulmonary edema but more likely represents evolving PNM owing to aspiration. It is reported that he did not require a biopsy during the colonoscopy. 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 Smoking Status: Never Smoker Drug Use: none Marital Status: Immunizations History of Influenza Vaccine: No Influenza Vaccine Date: Jul 11, 2007 History of Tetanus Vaccine?: Yes History of Pneumococcal: No History of Hepatitis B Vaccine: No Allergies Coded Allergies: Cephalexin (Verified Allergy, Unknown, ., 12/02/16) Home Medications Scheduled Allopurinol (Zyloprim), 100 MG PO HS Atorvastatin (Lipitor), 10 MG PO HS Bupropion Hcl (Wellbutrin Sr), 200 MG PO BID Cholecalciferol (Vitamin D3), 1,000 INTER.UNIT PO QAM Metoprolol Succ (Toprol Xl) (Toprol-Xl), 25 MG PO BID Pantoprazole (Pantoprazole Sodium), 40 MG PO QAM Rivaroxaban (Xarelto), 20 MG PO QPM Scheduled PRN Colchicine (Colcrys), 0.6-1.2 MG PO DAILY PRN for Gout Pain Ranitidine (Zantac), 150 MG PO HS PRN for Indigestion Review of Systems Constitutional: + fever, + chills, No sweats Eyes: No worsening of vision ENT: No hearing loss, No unusual epistaxis, No nasal symptoms Respiratory: + shortness of breath, + dyspnea on exertion, + dyspnea at rest, No cough, No sputum, No wheezing Cardiovascular: No chest pain, No orthopnea Abdomen: No pain, No nausea, No vomiting Musculoskeletal: No joint pain Genitourinary - Male: No hematuria, No dysuria Neurologic: No memory loss, No paralysis, No weakness Psychiatric: No depression symptoms Endocrine: No fatigue Hematologic / Lymphatic: No abnormal bleeding/bruising Integumentary: No rash Allergic / Immunologic: No environmental allergies Physical Exam Vital Signs Date Time Temp Pulse Resp B/P (MAP) Pulse Ox O2 Delivery O2 Flow Rate FiO2 11/20/17 21:36 71 16 136/99 94 Room Air 11/20/17 21:17 73 11/20/17 19:53 73 20 123/75 94 Nasal Cannula 2.0 11/20/17 18:15 77 16 141/76 95 Nasal Cannula 2.0 11/20/17 17:21 94 Nasal Cannula 2.0 11/20/17 17:17 70 11/20/17 17:15 85 Room Air 11/20/17 16:05 Room Air 11/20/17 16:02 36.7 82 18 136/90 93 Room Air General Appearance: WD/WN, no apparent distress Head: normocephalic Eyes: normal inspection ENT: normal ENT inspection, pharynx normal Neck: supple, thyroid normal Respiratory/Chest: + pertinent finding (Crackles are present throughout the L lung nails) Cardiovascular: regular rate, rhythm, no edema, no gallop Abdomen/GI: normal bowel sounds, non tender, soft Back: normal inspection, no CVA tenderness Extremities/Musculoskelatal: normal inspection, no calf tenderness, normal capillary refill Neurologic/Psych: executive 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 II-XII nml as tested, no motor/sensory deficits, alert, oriented x 3 Skin: normal color Diagnostics Laboratory Results Results Past 24 Hours Test 11/20/17 17:06 11/20/17 17:15 11/20/17 17:20 11/20/17 18:20 Range/Units Influenza Type A Antigen Neg for Influ A NEG Influenza Type B Antigen Neg for Influ B NEG White Blood Count 11.14 4.8-10.8 K/uL Red Blood Count 5.07 4.7-6.1 M/uL Hemoglobin 15.1 14.0-18.0 g/dL Hematocrit 42.7 42-52 % Mean Corpuscular Volume 84.2 80-100 fL Mean Corpuscular Hemoglobin 29.8 25-34 pg Mean Corpuscular Hemoglobin Concent 35.4 32-36 g/dl Platelet Count 180 130-400 K/uL Mean Platelet Volume 9.9 7.4-10.4 fL Neutrophils (%) (Auto) 87.8 % Lymphocytes (%) (Auto) 5.6 % Monocytes (%) (Auto) 5.7 % Eosinophils (%) (Auto) 0.6 % Basophils (%) (Auto) 0.2 % Neutrophils # (Auto) 9.79 1.4-6.5 K/uL Lymphocytes # (Auto) 0.62 1.2-3.4 K/uL Monocytes # (Auto) 0.63 0.11-0.59 K/uL Eosinophils # (Auto) 0.07 0-0.5 K/uL Basophils # (Auto) 0.02 0-0.2 K/uL RDW Standard Deviation 41.0 36.4-46.3 fL RDW Coefficient of Variation 13.5 11.5-14.5 % Immature Granulocyte % (Auto) 0.1 % Immature Granulocyte # (Auto) 0.01 0.00-0.02 K/uL Sodium Level 136 136-145 mmol/L Potassium Level 4.4 3.5-5.1 mmol/L Chloride Level 103 98-107 mmol/L Carbon Dioxide Level 26 21-32 mmol/L Anion Gap 7.0 3-11 mmol/L Blood Urea Nitrogen 19 7-18 mg/dl Creatinine 1.23 0.60-1.40 mg/dl Est Creatinine Clear Calc Drug Dose 71.2 ml/min Estimated GFR () 74.5 Estimated GFR (Non- 64.3 BUN/Creatinine Ratio 15.5 10-20 Random Glucose 135 70-99 mg/dl Calcium Level 9.1 8.5-10.1 mg/dl Total Bilirubin 0.3 0.2-1 mg/dl Aspartate Amino Transf (AST/SGOT) 21 15-37 U/L Alanine Aminotransferase (ALT/SGPT) 26 12-78 U/L Alkaline Phosphatase 103 45-117 U/L Total Protein 7.7 6.4-8.2 gm/dl Albumin 3.4 3.4-5.0 gm/dl Globulin 4.3 2.5-4.0 gm/dl Albumin/Globulin Ratio 0.8 0.9-2 Bedside Troponin I < 0.030 0-0.045 ng/ml Urine Color YELLOW Urine Appearance CLEAR CLEAR Urine pH 5.0 4.5-7.5 Urine Specific [place] 1.020 1.000-1.030 Urine Protein NEG NEG Urine Glucose (UA) NEG NEG Urine Ketones NEG NEG Urine Occult Blood NEG NEG Urine Nitrite NEG NEG Urine Bilirubin NEG NEG Urine Urobilinogen NEG NEG Urine Leukocyte Esterase NEG NEG Test 11/20/17 18:53 Range/Units Bedside Troponin I < 0.030 0-0.045 ng/ml Diagnostic Radiology CXR: Mild asymmetric interstitial thickening/edema left greater than right. No evidence of lobar consolidation. Cardiomegaly. EKG A flutter - V-paced at 70 BPM Impression Assessment and Plan 57 y/o M Hx AF, pacer, HPL, GERD, gout. Pt had a colonoscopy earlier and was suspected to have aspirated during the procedure. He was briefly hypoxic in the 80s and also had transient hypotension. He received a dose of epi following the procedure, gradually improved and was DCd home. The pt reports that at home, he developed rigors and SOB prompting him to attend the hospital. He was maintaining an adequate saturation on arrival and a fever was not confirmed. An initial CXR is read as asymmetric pulmonary edema but more likely represents evolving PNM owing to aspiration. 1) Aspiration - presumed developing PNM - placed on Unasyn, 02 protocol, nebs. Will repeat CXR AM. 2) AF - rate is currently controlled - cont Toprol, resume Xarelto. 3) Gout - cont Allopurinol 4) GERD - currently on double suppression - cont PPi, H2 luis antonio 5) HPL - cont Statin Full code - Xarelto prophylaxis Total time for this admit including review of labs, meds, imaging, records, EKG - discussion with pt and ER attending - 37 min Resuscitation Status VTE Prophylaxis Will order VTE Prophylaxis: Yes
[2017-11-20] MEDS ORDERED: ALBUTEROL 0.083% NEBU SOLN 3 ML VIAL INH PRN (22:00)
[2017-11-20 22:54] VITALS: O2SAT 94; Ht 167.6 cm; Wt 96.5 kg
[2017-11-21] MEDS: AMPICILLIN/SULBACTAM SOD INJ 3,000 MG in SODIUM CHLORIDE 0.9% 100ML 100 ML IV SCH ×3 (00:30→12:16)
[2017-11-21 00:36] VITALS: BP 120/70; PULSE 81; TEMP 37.4; O2SAT 94
[2017-11-21 02:23] VITALS: PULSE 73; O2SAT 92
[2017-11-21] MEDS: ALBUT/IPRATROP 3MG/0.5MG NEB 3 ML VIAL INH SCH ×2 (02:23→07:11)
[2017-11-21 07:11] VITALS: PULSE 77; O2SAT 94
[2017-11-21 07:27] VITALS: BP 108/69; PULSE 78; TEMP 36.8; O2SAT 92
[2017-11-21 07:55] LABS: HEMATOCRIT 39.8 % (42-52); HEMOGLOBIN 14.1 g/dL (14.0-18.0); MEAN CELL VOLUME 83.6 fL (80-100); MEAN CORPUSCULAR HEMOGLOBIN 29.6 pg (25-34); MEAN CORPUSCULAR HGB CONC 35.4 g/dl (32-36); MEAN PLATELET VOLUME 9.9 fL (7.4-10.4); PLATELET COUNT 165 K/uL (130-400); RED CELL DISTRIBUTION WIDTH CV 13.6 % (11.5-14.5); WHITE BLOOD COUNT 7.92 K/uL (4.8-10.8)
[2017-11-21] MEDS ORDERED: METOPROLOL SUCC 25MG EXT REL TAB PO SCH (08:00)
[2017-11-21] MEDS ORDERED: PANTOprazole SOD 40 MG TAB PO SCH (08:00)
[2017-11-21] MEDS ORDERED: BuPROPion SR 100 MG TABCR PO SCH (08:00)
[2017-11-21 08:34] LABS: CALCIUM 8.9 mg/dl (8.5-10.1); CREATININE 1.17 mg/dl (0.60-1.40); POTASSIUM 3.8 mmol/L (3.5-5.1)
--- NOTE | 2017-11-21 09:50 | DIAGNOSTIC IMAGING REPORT ---
CHEST 2 VIEWS ROUTINE CLINICAL HISTORY: Shortness of breath. COMPARISON STUDY: Chest radiograph November 20, 2017. FINDINGS: A dual lead left subclavian pacemaker is in place. There is no pneumothorax or pleural effusion. Moderate cardiomegaly is noted. Linear left lung opacities favor atelectasis. There is no consolidation to suggest pneumonia. There is pulmonary vascular congestion without overt edema. IMPRESSION: 1. Linear left lung opacities which favor atelectasis. 2. Pulmonary vascular congestion without overt pulmonary edema. Electronically signed by: Edgardo Cisneros M.D. 11/21/2017 9:48 AM Dictated Date/Time: 11/21/2017 9:47 AM
[2017-11-21] MEDS ORDERED: AMOX875T PO (12:35)
--- NOTE | 2017-11-21 12:38 | Discharge Instructions ---
Discharge Instructions Date of Service Nov 21, 2017. Admission Reason for Admission: Aspiration, Acute hypoxic respiratory failure Discharge Discharge Diagnosis / Problem: Aspiration, Acute hypoxic respiratory failure Discharge Goals Goal(s): Improve disease control, Diagnostic testing, Therapeutic intervention Activity Recommendations Activity Limitations: resume your previous activity Exercise/Sports Limitations: gradually increase as tolerated Shower/Bathe: no limitations Driving or Machine Use: no limitations . Instructions / Follow-Up Instructions / Follow-Up You were admitted for low oxygen levels after you aspirated (breathed in) vomit during your colonoscopy. You should finish out a short course of antibiotics to cover in case of infection although your chest xray did not show an obvious pneumonia. Please follow up with your PCP within 1-2 weeks. Current Hospital Diet Patient's current hospital diet: AHA Diet (Heart Healthy) Discharge Diet Recommended Diet: AHA Diet (Heart Healthy) Procedures Procedures Performed: Chest xrays Pending Studies Studies pending at discharge: no Medical Emergencies . Who to Call and When: Medical Emergencies: If at any time you feel your situation is an emergency, please call 911 immediately. . Non-Emergent Contact Non-Emergency issues call your: Primary Care Provider Call Non-Emergent contact if: you have a fever, temperature is above 100.5, you have any medication questions . . "Provider Documentation" section prepared by Carla Martin. .
[2017-11-21 13:31] VITALS: BP 108/69; PULSE 78; TEMP 36.8; O2SAT 92
[2017-11-21] MEDS ORDERED: RIVAROXABAN 10 MG TAB PO SCH (17:00)
--- NOTE | 2017-11-21 17:19 | Discharge Summary ---
Discharge Summary Date of Service Nov 21, 2017. Discharge Summary Admission Date: Nov 20, 2017 at 21:45 Discharge Date: Nov 21, 2017 Discharge Disposition: Home Principal Diagnosis: Aspiration, Acute hypoxic respiratory failure Problems/Secondary Diagnoses: Permanent atrial fibrillation/flutter on Xarelto for alf anticoagulation Pacemaker in situ HPL GERD Gout Immunizations: Have You Had Influenza Vaccine: No Influenza Vaccine Date: Jul 11, 2007 History of Tetanus Vaccine?: Yes History of Pneumococcal: No History of Hepatitis B Vaccine: No Procedures: CXRs x 2 Consultations: None Medication Reconciliation New Medications: Amoxicillin & Pot Clavulanate (Augmentin 875-125 mg) 1 Tab Tab 875 MG PO BID for 5 Days, #10 TAB Continued Medications: Allopurinol (Zyloprim) 100 Mg Tab 100 MG PO HS for gout, TAB Atorvastatin (Lipitor) 10 Mg Tab 10 MG PO HS Bupropion Hcl (Wellbutrin Sr) 200 Mg Tabcr 200 MG PO BID Cholecalciferol (Vitamin D3) 1,000 Unit Tab 1000 INTER.UNIT PO QAM, TAB Colchicine (Colcrys) 0.6 Mg Tab 0.6-1.2 MG PO DAILY PRN for Gout Pain Metoprolol Succ (Toprol Xl) (Toprol-Xl) 25 Mg Tabcr 25 MG PO BID, TAB Pantoprazole (Pantoprazole Sodium) 40 Mg Tab 40 MG PO QAM Ranitidine (Zantac) 150 Mg Tab 150 MG PO HS PRN for Indigestion Rivaroxaban (Xarelto) 20 Mg Tab 20 MG PO QPM, TAB TAKE THIS MEDICATION WITH EVENING MEAL Discharge Exam Pt feeling very well the AM after admission. Is weaned off O2, having a very mild cough productive of minimal sputum, no hemoptysis. Afebrile throughout hospital course. BPs and vitals all stable. No CP or SOB. Review of Systems: Constitutional: No fever Eyes: No problem reported ENT: No problem reported Respiratory: No problem reported Cardiovascular: No problem reported Abdomen: No problem reported Musculoskeletal: No problem reported Genitourinary - Male: No problem reported Neurologic: No problem reported Psychiatric: No problem reported Endocrine: No problem reported Hematologic / Lymphatic: No problem reported Integumentary: No problem reported Physical Exam: General Appearance: WD/WN, no apparent distress Eyes: normal inspection, sclerae normal ENT: hearing grossly normal Neck: trachea midline Respiratory/Chest: no respiratory distress, no accessory muscle use, + crackles (mild, at bases bilat) Cardiovascular: regular rate, rhythm, no edema, no murmur, normal peripheral pulses Abdomen / GI: normal bowel sounds, non tender, soft, no organomegaly Extremities: normal inspection, no calf tenderness, normal capillary refill , no pedal edema Neurologic/Psychiatric: alert, normal mood/affect, oriented x 3 Skin: normal color, warm/dry, no rash Hospital Course 57 y/o M Hx AF, pacer, HPL, GERD, gout. Pt had a colonoscopy earlier and was suspected to have aspirated during the procedure. He was briefly hypoxic in the 80s and also had transient hypotension. He received a dose of epi following the procedure, gradually improved and was DCd home. The pt reports that at home, he developed rigors and SOB prompting him to attend the hospital. He was maintaining an adequate saturation on arrival and a fever was not confirmed. An initial CXR is read as asymmetric pulmonary edema but more likely represents evolving PNM owing to aspiration. 1) Aspiration pneumonitis/Acute hypoxic respiratory failure - admitted for presumed developing PNA vs pneumonitis - placed on Unasyn, 02 protocol, nebs. Repeat CXR the next day was clear, without infiltrate. He remained afebrile and was weaned off O2. He was ambulating without SOB or hypoxia. He will be discharged to home on Augmentin 875mg po bid for 5 day total course empirically. 2) Permanent AF s/p PPM - rate is currently controlled with pacer-no issues - - cont Toprol, resumed Xarelto as no biopsies taken during colonoscopy 3) Gout -stable, no acute issues - cont Allopurinol 4) GERD - currently on double suppression, stable - cont PPi, H2 luis antonio 5) HPL -stable - cont Statin Stable for discharge to home Total Time Spent: Greater than 30 minutes This includes examination of the patient, discharge planning, medication reconciliation, and communication with other providers. Discharge Instructions Please refer to the electronic Patient Visit Report (Discharge Instructions) for additional information. Follow-Up With PCP within 1-2 weeks Additional Copies To Hilario Zheng M.D.
[2017-11-21] MEDS ORDERED: ALLOPURINOL 100 MG TAB PO SCH (22:00)
[2017-11-21] MEDS ORDERED: ATORVASTATIN 10 MG TAB PO SCH (22:00)
== END 2017-11-21 13:51 | disposition home or self-care (01) | DRG 177 ==
LOC: C.EDB 15:57 → C.MS4W 21:45 → ENRESERV 22:15
PROVIDERS: ADMIT Internal Medicine; ATTEND Family Medicine
DX: J69.0 Pneumonitis due to inhalation of food and vomit (principal); J96.01 Acute respiratory failure with hypoxia; T17.918A Gastric contents in respiratory tract, part unspecified causing other injury, initial encounter; Y84.4 Aspiration of fluid as the cause of abnormal reaction of the patient, or of later complication, without mention of misadventure at the time of the procedure; Y92.538 Other ambulatory health services establishments as the place of occurrence of the external cause; I95.9 Hypotension, unspecified; I48.2 Chronic atrial fibrillation; E78.5 Hyperlipidemia, unspecified; K21.9 Gastro-esophageal reflux disease without esophagitis; M10.9 Gout, unspecified; Z95.0 Presence of cardiac pacemaker; Z79.01 Long term (current) use of anticoagulants; Z79.899 Other long term (current) drug therapy; Z88.1 Allergy status to other antibiotic agents

== ENCOUNTER 2024-09-14 11:39 | Inpatient (IN) ==
[2024-09-14] MEDS: NITROGLYCERIN SL 0.4 MG/TAB TAB SL PRN (12:15)
[2024-09-14 12:24] LABS: Basophils # (auto) 0.04 K/uL (0.00-0.20); Basophils % (auto) 0.6 %; Eosinophils % (auto) 1.4 %; Hematocrit (blood only) 44.8 % (42.0-52.0); Hemoglobin 14.9 g/dl (14.0-18.0); Immature Granulocytes # (auto) 0.01 K/uL (0.01-0.20); Immature Granulocytes % (auto) 0.1 %; Lymphocytes # (auto) 1.72 K/uL (1.20-3.40); Lymphocytes % (auto) 23.7 %; Mean Corpuscular Hemoglobin 27.9 pg (25.0-34.0); Mean Corpuscular Hgb Conc 33.3 g/dL (32.0-36.0); Mean Corpuscular Volume 83.7 fL (80.0-100.0); Mean Platelet Volume 9.5 fL (9.4-12.4); Monocytes # (auto) 0.46 K/uL (0.11-0.59); Monocytes % (auto) 6.3 %; Neutrophils # (auto) 4.94 K/uL (1.40-6.50); Neutrophils % (auto) 67.9 %; Platelet Count 206 K/uL (130-400); RDW Coefficient of Variation 13.7 % (11.5-14.5); RDW Standard Deviation 41.9 fL (36.4-46.3); Red Blood Count 5.35 M/uL (4.70-6.10); White Blood Count 7.27 K/ul (4.8-10.8)
--- NOTE | 2024-09-14 12:30 | XRay Report ---
XR chest 1V portable CLINICAL HISTORY: Chest pain, nonspecific COMPARISON STUDY: Chest CT December 08, 2020. Chest radiograph July 12, 2014. FINDINGS: A left subclavian pacer is in place is in place. There is no pneumothorax or pleural effusi on. There is moderate cardiomegaly with mild interstitial thickening. There is no consolidation. A hi atal hernia is again noted IMPRESSION: Cardiomegaly with mild interstitial pulmonary edema. ACT 112: Negative or not required by law. Electronically signed by: Edgardo Cisneros M.D. 09/14/2024 12:29 PM
[2024-09-14] MEDS: SODIUM CHLORIDE 0.9% 250 ML IV ONE (12:31)
[2024-09-14] MEDS: ALBUT/IPRATROP 3MG/0.5MG NEB 3 ML VIAL NEB STA ×2 (12:31→13:42)
--- NOTE | 2024-09-14 12:37 | Emergency Department Note ---
Impression & Plan Retrosternal chest pain, Bilateral wheezing, Chronic anticoagulation, RSV infection ED Provider Note NAME: PRIMO LOPEZ AGE: 64 SEX: Male INFORMANT: Patient and ED PROVIDER(S): Qamar Brambila MD CHIEF COMPLAINT: Chest pain PLAN: Disposition: Admitted Outpatient prescription management: none Referral: None MEDICAL DECISION MAKING: Patient presented because of chest pain. ECG was nonischemic. He was given a dose of nitroglycerin which seemed to help the discomfort however his blood pressure did drop. Fluid bolus was initiated. Patient was wheezing quite a bit and was given a DuoNeb. Chest x-ray shows some congestion. BioFire testing performed. COVID and flu were negative however the patient was found to have RSV infection. He was given Decadron and another neb treatment. In light of his anticoagulation thromboembolic workup deferred. The patient had a negative cardiac troponin. He was requiring supplemental oxygen. I suspect his respiratory infection is the underlying cause for his symptomatology. Patient will need further evaluation and management in the hospital. Consultation was made with Dr. Sachin Lopez of the [facility] service. Patient was evaluated in the ER for further management. Care/management discussed with: manager of financial planning. [employer]. No dysrhythmia noted on pacemaker interrogation. Level of care consideration(s): After review of the information above and other included data, I feel the patient requires escalation of care to admission Triage Nursing notes: reviewed and agree them. Vital Signs: reviewed and remarkable for no significant abnormalities Additional History obtained from: Patient's . Was prescribed a Medrol Dosepak and Zithromax as an outpatient. Chronic Medical/Social Conditions affecting care: Pacemaker, anticoagulation Prior/ Outside/ External records reviewed: none Differential Diagnosis: Reactive airway disease, pneumonia, pneumothorax, COPD, CHF, infections, cardiac ischemia, pulmonary embolism, musculoskeletal, gastrointestinal, as well as other pathologies. Diagnostics, independently interpreted by me: ECG: Twelve-lead ECG reveals a paced rhythm at [address] elevation. Cardiac Monitoring: Cardiac monitoring ordered by me: The patient was placed on continuous cardiac monitoring and observed. It revealed a paced rhythm at 75 Medical decision rules: none Imaging studies: Chest x-ray reveals mild cardiomegaly and pulmonary vascular congestion. HPI: 64 year old Male arrives for evaluation of chest pain. This started 1 hour ago and is on the left side radiating to the right. The patient also notes the following associated symptoms, wheezing and flulike symptoms. The patient has recently been prescribed a Medrol Dosepak and Zithromax for relieving factors. Current pain is rated as 8/10. Patient is on anticoagulation due to history of A-fib. Has pacemaker. Pt denies LOC, headache, fevers, chills, diaphoresis, visual changes, neck pain, nausea, vomiting, abdominal pain, back pain, melena, hematochezia, urinary symptoms, numbness, weakness, lymphadenopathy, rash, or other complaints.. PAST MEDICAL HISTORY: See Below, A-fib PAST SURGICAL HISTORY: See Below, pacemaker SOCIAL HISTORY: See Below, HOME MEDICATIONS: See Below ALLERGIES: See Below VITALS: See Below PHYSICAL EXAMINATION: GENERAL: Awake, alert, well-appearing, in no distress HENT: Normocephalic, atraumatic. Oropharynx unremarkable. EYES: Normal conjunctiva. Sclera non-icteric. NECK: Inspection normal. Non-tender. Supple. No nuchal rigidity. FROM. No masses. RESPIRATORY: Bilateral wheezes. No rales. Normal respiratory effort. CARDIAC: Normal rate. Normal rhythm. No murmurs. No rubs. Extremities warm and well perfused. Pulses equal. No JVD. GI: Soft, non-distended. No tenderness to palpation. No rebound or guarding. No masses. RECTAL: Deferred. MUSCULOSKELETAL: Atraumatic. Chest examination reveals no tenderness. The back is symmetrical on inspection without obvious abnormality. There is no CVA tenderness to palpation. No joint edema. LOWER EXTREMITIES: Calves are equal size bilaterally and non-tender. No edema. No discoloration. NEURO: Normal sensorium. No sensory or motor deficits noted. SKIN: No rash or jaundice noted. PROCEDURES: none CRITICAL CARE: none OBSERVATION NOTE: none Past Med/Surg History Problem List (Updated 09/14/24 @ 17:41 by Qamar Brambila MD) RSV infection (Acute) Acute hypoxemic respiratory failure Chronic anticoagulation (Acute) Bilateral wheezing (Acute) Retrosternal chest pain (Acute) BPH w urinary obs/LUTS B12 deficiency Imbalance Positive EVAN (antinuclear antibody) Seizure-like activity Neuropathy Dementia Gout History of pacemaker Nephrolithiasis Right ureteral calculus Hematuria Paroxysmal atrial fibrillation (Acute) on Xarelto Atrial fibrillation (Chronic) ADHD (attention deficit hyperactivity disorder) (Chronic) Paroxysmal atrial fibrillation (Acute) GERD (gastroesophageal reflux disease) (Chronic) controlled High cholesterol (Chronic) Atrial fibrillation with rapid ventricular response (Acute) Medical History Kidney stones Pacemaker Hiatal hernia Sleep apnea Surgical History History of cystoscopy History of esophagogastroduodenoscopy (EGD) History of colonoscopy History of cataract surgery Status post ablation of atrial fibrillation History of kidney surgery Family History Mother Cardiac disorder Stroke Diabetes Father Diabetes Other No significant family history Social History Smoking Status: Unknown if ever smoked Second Hand Exposure: No; Do You Dip or Chew Tobacco: No; Hx Alcohol Use: Yes Alcohol type: beer Hx Substance Use: No Preferred Language: B[place] Communication Ability: Impaired Visual Impairment: Limited Hearing Ability: Normal Childcare Provider Required: No Beliefs That Will Affect Care: None marital status: Current Living Situation: Spouse current occupational status: employed 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 Verified 11/05/23 15:06 Home Meds Home Medications Medication Instructions Recorded Confirmed bupropion HCl 200 mg tablet,12 hr 200 mg PO BID 06/13/18 09/14/24 sustained-release (Wellbutrin SR) cholecalciferol (vitamin D3) 25 1,000 unit PO QAM 06/13/18 09/14/24 mcg (1,000 unit) tablet (Vitamin D3) pantoprazole 40 mg tablet,delayed 40 mg PO QAM 06/13/18 09/14/24 release rivaroxaban 20 mg tablet (Xarelto) 20 mg PO QPM 06/13/18 09/14/24 metoprolol succinate 25 mg 12.5 mg PO DAILY 01/19/21 09/14/24 tablet,extended release 24 hr ezetimibe 10 mg tablet 10 mg PO DAILY 10/15/22 09/14/24 mecobalamin (vitamin B12) 5,000 1,000 mcg PO .Q OTHER DAY 04/30/23 09/14/24 mcg disintegrating tablet azithromycin 250 mg tablet 250 mg PO DIRECTED 09/14/24 09/14/24 colchicine 0.6 mg tablet 0.6 mg PO .ad directed PRN Other 09/14/24 09/14/24 methylprednisolone 4 mg tablets in 4 mg PO DIRECTED 09/14/24 09/14/24 a dose pack (Medrol (Luis)) Previous Rx's Medication Instructions Recorded allopurinol 300 mg tablet 300 mg PO DAILY #90 tabs 11/05/22 sodium bicarbonate 650 mg tablet 650 mg PO BID #180 tabs 08/24/24 Results & Data (ED) Vital Signs Vital Signs - 24 hr 09/14/24 11:45 09/14/24 11:55 09/14/24 11:55 Temperature 36.6 C Temperature Source Temporal Artery Scan Pulse Rate 76 Pulse Rate [Apical] 70 Pulse Rhythm [Apical] Regular Pulse Strength [Apical] Normal Respiratory Rate 18 18 Respiratory Effort / Characteristics Non-Labored Non-Labored Spontaneous Respiratory Depth Normal Normal Blood Pressure 120/77 Blood Pressure [Right Arm] 142/92 H Blood Pressure Mean 91 Blood Pressure Mean [Right Arm] 108 Pulse Oximetry 95 95 Oxygen Delivery Method Room Air Room Air Room Air Oxygen Flow Rate Sepsis Recent Fever Within 48 Hours No Sepsis New/Unexplained Change in Mental Status N/A Sepsis Action Taken by Nursing No Action Required Oxygen Flow Rate - Titration Pulse Oximetry Post Tiitration 09/14/24 11:55 09/14/24 12:12 09/14/24 12:21 Temperature Temperature Source Pulse Rate 71 Pulse Rate [Apical] 70 Pulse Rhythm [Apical] Pulse Strength [Apical] Respiratory Rate 18 Respiratory Effort / Characteristics Non-Labored Respiratory Depth Normal Blood Pressure Blood Pressure [Right Arm] 93/69 L Blood Pressure Mean Blood Pressure Mean [Right Arm] 77 Pulse Oximetry 94 Oxygen Delivery Method Room Air Room Air Oxygen Flow Rate Sepsis Recent Fever Within 48 Hours Sepsis New/Unexplained Change in Mental Status Sepsis Action Taken by Nursing Oxygen Flow Rate - Titration Pulse Oximetry Post Tiitration 09/14/24 12:50 09/14/24 13:00 Temperature Temperature Source Pulse Rate Pulse Rate [Apical] 70 Pulse Rhythm [Apical] Pulse Strength [Apical] Respiratory Rate 16 Respiratory Effort / Characteristics Non-Labored Respiratory Depth Normal Blood Pressure Blood Pressure [Right Arm] 94/72 L Blood Pressure Mean Blood Pressure Mean [Right Arm] 79 Pulse Oximetry 89 L 91 Oxygen Delivery Method Room Air Nasal Cannula Oxygen Flow Rate 2 Sepsis Recent Fever Within 48 Hours Sepsis New/Unexplained Change in Mental Status Sepsis Action Taken by Nursing Oxygen Flow Rate - Titration 2 Pulse Oximetry Post Tiitration 91 Laboratory Data 09/14/24 11:59 09/14/24 11:59 Lab Results 09/14/24 09/14/24 09/14/24 Range/Units 11:59 12:16 15:58 WBC 7.27 (4.8-10.8) K/ul RBC 5.35 (4.70-6.10) M/uL Hgb 14.9 (14.0-18.0) g/dl Hct 44.8 (42.0-52.0) % MCV 83.7 (80.0-100.0) fL MCH 27.9 (25.0-34.0) pg MCHC 33.3 (32.0-36.0) g/dL RDW Std Deviation 41.9 (36.4-46.3) fL RDW Coeff of Jenny 13.7 (11.5-14.5) % Plt Count 206 (130-400) K/uL MPV 9.5 (9.4-12.4) fL Immature Gran % (Auto) 0.1 % Neut % (Auto) 67.9 % Lymph % (Auto) 23.7 % [place] % (Auto) 6.3 % Eos % (Auto) 1.4 % Baso % (Auto) 0.6 % Neut # (Auto) 4.94 (1.40-6.50) K/uL Lymph # (Auto) 1.72 (1.20-3.40) K/uL [place] # (Auto) 0.46 (0.11-0.59) K/uL Eos # (Auto) 0.10 (0.00-0.50) K/uL Baso # (Auto) 0.04 (0.00-0.20) K/uL Immature Gran # (Auto) 0.01 (0.01-0.20) K/uL Sodium 140 (136-145) mmol/L Potassium 3.9 (3.5-5.1) mmol/L Chloride 103 (98-107) mmol/L Carbon Dioxide 32 (21-32) mmol/L Anion Gap 5 (3-11) BUN 26 H (6-23) mg/dl Creatinine 1.01 (0.6-1.4) mg/dl Est Cr Clr Drug Dosing 68.2 ml/min eGFR 82.53 BUN/Creatinine Ratio 25.7 H (10-20) Glucose 100 H (70-99(Fasting)) mg/dl Calcium 9.6 (8.6-10.3) mg/dl Magnesium 2.0 (1.7-2.4) mg/dl Total Bilirubin 0.4 (0.2-1.0) mg/dl AST 36 (13-39) U/L ALT 28 (7-52) U/L Alkaline Phosphatase 107 H (34-104) U/L Troponin I High Sens 7.1 6.1 (0-20) pg/ml B-Natriuretic Peptide 20 (0-100) pg/ml Total Protein 8.1 (6.0-8.3) gm/dl Albumin 4.1 (3.4-5.0) gm/dl Globulin 4.0 (2.5-4.0) gm/dl Albumin/Globulin Ratio 1.0 (0.9-2) Lipase 25 (11-82) U/L Adenovirus (PCR) Not Detected (NotDetected) B. pertussis DNA (PCR) Not Detected (NotDetected) B.parapertussis DNA PCR Not Detected (NotDetected) C. pneumoniae DNA (PCR) Not Detected (NotDetected) Coronavirus OC43 (PCR) Not Detected (NotDetected) Coronavirus HKU1 (PCR) Not Detected (NotDetected) Coronavirus 229E (PCR) Not Detected (NotDetected) SARS-CoV-2 (PCR) Not Detected (NotDetected) Coronavirus NL63 (PCR) Not Detected (NotDetected) Human Metapneumovir PCR Not Detected (NotDetected) Influenza Type A (PCR) Not Detected (NotDetected) Influenza Type B (PCR) Not Detected (NotDetected) M. pneumoniae (PCR) Not Detected (NotDetected) Parainfluenza 1 (PCR) Not Detected (NotDetected) Parainfluenza 2 (PCR) Not Detected (NotDetected) Parainfluenza 3 (PCR) Not Detected (NotDetected) Parainfluenza 4 (PCR) Not Detected (NotDetected) RSV (PCR) DETECTED A (NotDetected) Entero/Rhino (PCR) Not Detected (NotDetected) Administered Medications Methylprednisolone 40 mg/ (Syringe) 0.64 mls @ 1.5 mls/min IV Q8H ARMIDA Stop: 10/14/24 16:29 Last Admin: 09/14/24 17:07 Dose: 1.5 mls/min Documented By: HB Nitroglycerin (Nitroglycerin Sl 0.4 Mg/Tab Tab) 0.4 mg SL Q5M PRN PRN Reason: Chest Pain Stop: 10/14/24 12:08 Last Admin: 09/14/24 12:15 Dose: 0.4 mg Documented By: RIGO Discontinued Medications Albuterol (Albut/Ipratrop 3mg/0.5mg Neb 3 Ml Vial) 3 ml NEB NOW STA; Protocol Stop: 09/14/24 12:28 Last Admin: 09/14/24 12:31 Dose: 3 ml Documented By: RIGO Albuterol (Albut/Ipratrop 3mg/0.5mg Neb 3 Ml Vial) 3 ml NEB NOW STA; Protocol Stop: 09/14/24 13:38 Last Admin: 09/14/24 13:42 Dose: 3 ml Documented By: RIGO Dexamethasone Sodium Phosphate (DexamethasonePf 10 Mg/Ml Vial) 10 mg IV NOW ONE Stop: 09/14/24 13:35 Last Admin: 09/14/24 13:43 Dose: 10 mg Documented By: HB Sodium Chloride (Nss) 250 mls @ 999 mls/hr IV .Q16M ONE Stop: 09/14/24 12:41 Last Infusion: 09/14/24 12:52 Dose: Infused Documented By: Admin: 09/14/24 12:31 Dose: 999 mls/hr Documented By: RIGO Imaging Data Radiologist's Impression: Chest X-Ray 09/14/24 11:49 XR chest 1V portable CLINICAL HISTORY: Chest pain, nonspecific COMPARISON STUDY: Chest CT December 08, 2020. Chest radiograph July 12, 2014. FINDINGS: A left subclavian pacer is in place is in place. There is no pneumothorax or pleural effusion. There is moderate cardiomegaly with mild interstitial thickening. There is no consolidation. A hiatal hernia is again noted IMPRESSION: Cardiomegaly with mild interstitial pulmonary edema. ACT 112: Negative or not required by law. Electronically signed by: Edgardo Cisneros M.D. 09/14/2024 12:29 PM Discharge Plan Visit Data Chief Complaint: Chest Pain Stated Complaint: CHEST PAIN ED Provider: Qamar Brambila Discharge Problem: Retrosternal chest pain, Bilateral wheezing, Chronic anticoagulation, RSV infection Patient Disposition: Admitted As Inpatient Forms Stand Alone Forms: My [facility] Prescriptions Prescriptions: No Action mecobalamin (vitamin B12) 5,000 mcg tablet,disintegrating 1,000 mcg PO .Q OTHER DAY sodium bicarbonate 650 mg tablet 650 mg PO BID Qty: 180 3RF metoprolol succinate 25 mg tablet extended release 24 hr 12.5 mg PO DAILY allopurinol 300 mg tablet 300 mg PO DAILY Qty: 90 3RF ezetimibe 10 mg tablet 10 mg PO DAILY pantoprazole 40 mg Tablet,Delayed Release (Dr/Ec) 40 mg PO QAM bupropion HCl [Wellbutrin SR] 200 mg tablet sustained-release 12 hr 200 mg PO BID cholecalciferol (vitamin D3) [Vitamin D3] 1,000 unit Tablet 1,000 unit PO QAM Xarelto 20 mg tablet 20 mg PO QPM azithromycin 250 mg tablet 250 mg PO DIRECTED methylprednisolone [Medrol (Luis)] 4 mg tablets,dose pack 4 mg PO DIRECTED colchicine 0.6 mg tablet 0.6 mg PO .ad directed PRN (Reason: Other) Rx Instructions: Please take 2 tabs today followed by 1 tab daily until resolution of symptoms. Do not take for more than 1 week. Referrals Referrals: Hilario Zheng [Primary Care Provider] -
[2024-09-14 12:40] LABS: Albumin Level 4.1 gm/dl (3.4-5.0); BUN Creatinine Ratio 25.7 (10-20); Bilirubin,Total 0.4 mg/dl (0.2-1.0); Calcium 9.6 mg/dl (8.6-10.3); Creatinine Clr Calc Pharmacy 68.2 ml/min; Potassium 3.9 mmol/L (3.5-5.1); Total Protein 8.1 gm/dl (6.0-8.3)
[2024-09-14 12:44] LABS: Troponin I High Sensitivity 7.1 pg/ml (0-20)
[2024-09-14 13:18] LABS: Adenovirus PCR Not Detected (NotDetected); Bordetella parapertussis PCR Not Detected (NotDetected); Bordetella pertussis PCR Not Detected (NotDetected); Chlamydia pneumoniae PCR Not Detected (NotDetected); Coronavirus 229E PCR Not Detected (NotDetected); Coronavirus CoV-2 (COVID19)PCR Not Detected (NotDetected); Coronavirus HKU1 PCR Not Detected (NotDetected); Coronavirus NL63 PCR Not Detected (NotDetected); Coronavirus OC43PCR Not Detected (NotDetected); Human Metapneumovirus PCR Not Detected (NotDetected); Influenza A PCR Not Detected (NotDetected); Influenza B PCR Not Detected (NotDetected); Mycoplasma pneumoniae PCR Not Detected (NotDetected); Parainfluenza Virus 1 PCR Not Detected (NotDetected); Parainfluenza Virus 2 PCR Not Detected (NotDetected); Parainfluenza Virus 3 PCR Not Detected (NotDetected); Parainfluenza Virus 4 PCR Not Detected (NotDetected); Respiratory Syncytial VirusPCR DETECTED (NotDetected); Rhinovirus/Enterovirus PCR Not Detected (NotDetected)
[2024-09-14] MEDS: dexAMETHasone**PF** 10 MG/ML VIAL IV ONE (13:43)
--- NOTE | 2024-09-14 14:50 | History & Physical Report ---
Date of Service September 14, 2024 Assessment & Plan (1) Acute hypoxemic respiratory failure: Plan: Assessment: 64-year-old male with a past history of A-fib history of ablation and heart block s/p pacemaker placement, preserved EF with grade 2 diastolic dysfunction who presents with shortness of breath, hypoxia and diffuse wheezing and chest discomfort on admission. High sensitive troponin is normal despite more than 1 hour of chest discomfort. He is RSV positive, chest x-ray shows mild interstitial pulmonary edema. Suspect commendation of mild HFpEF but symptoms prominent from RSV. Low suspicion for cardiac etiology of his pain given pain constant for 1 hour with a negative troponin, occult CAD is not excluded. Repeat troponin is pending and patient will be observed overnight Hypoxic respiratory failure due to RSV +/- HFpEF With RSV positive, and mild pulmonary congestion Supportive care for RSV. Did receive 1 dose of dexamethasone in the ER - Significant wheezing in the ER and on exam. continue pulmonary toilet, nebs. Continue Solu-Medrol 40 3 times daily and wean as tolerated Chest pain - Hx A-fib s/p ablation, heart block s/p pacemaker placement, HFpEF grade 2 diastolic dysfunction Last echo 2018 with EF 65%, grade 2 diastolic dysfunction Mild pulmonary edema and congestion on x-ray. Trace JVD. Nauseous diuresis ordered. Low suspicion for ACS given negative troponin despite 1 hour of continuous discomfort although nitro did seem to help his pain per ER report. Repeat trop pending. - Suspect more pulmonary etiology of his discomfort, but demand ischemia and occult CAD is within differential. - Updated echo pending Chronic stable issues: CKD: Creatinine baseline approximately 1.1, creatinine 1.01 on admission. No CATHIE. Renally dose medications as appropriate Positive EVAN: Followed with rheumatology. No clinical features of scleroderma/lupus/EVAN. No cellular abnormalities. No treatment was indicated, followed clinically. No acute change in management - Memory deficit, dementia: Patient with some episodes of confusion and memory deficits although his these improved after stopping his statin. Follows with neurology. Canceled cognitive testing via neuropsych. EEG in 05/2022 did not show seizure-like activity. MRI brain 2021 was normal. No acute change in symptoms. No acute change in management. Delirium precautions JADYN: CPAP at bedtime DVT prophylaxis: Continue anticoagulation Diet: Heart healthy Disposition: Medical telemetry due to chest pain CODE STATUS: Full code (2) Paroxysmal atrial fibrillation: (3) Dementia: History of Present Illness Primary Care Provider: Hilario Zheng Huang Ascencio is a 64-year-old male with past medical history of positive EVAN, paroxysmal A-fib on Xarelto, ADHD, GERD who presents emergency department with left-sided chest pain with radiation causes chest, wheezing, cough, congestion. He has been taking methylprednisolone/Zithromax for URI. On ER evaluation he does not have leukocytosis, troponin is normal, BioFire is positive for RSV, chest x-ray shows mild interstitial pulmonary edema. Last echo 2018 with EF 65%, type II diastolic dysfunction. He was hypoxic in the ER, and hypotensive x 2. Due to hypoxia and hypotension he was recommended for inpatient admission and treatment of viral URI. EKG is a ventricularly paced rhythm, troponin was normal. Given is seen in the ER. He reports he has had a upper respiratory infection with some wheezing and shortness of breath which began on , about 5 days ago. Has been on a steroid and an antibiotic for this. Was getting a little bit better but today had a uncomfortable pain which went up from his epigastrium up the left side of his chest and spread across to the right side. This was constant and lasted for over an hour until he received nitro and breathing treatments in the ER and then it seemed to relax. He has not had chest pain like this before. Denies exertional angina and shortness of breath normally. He has no history of COPD or asthma denies tobacco use. He is anticoagulated for A-fib. He does have a history of GERD feels this did feel somewhat different than his typical GERD symptoms. He denies any lightheadedness dizziness syncope or presyncope. He has not had nausea vomiting or diarrhea. No melena or hematochezia Medical History: Reviewed Medications: Reviewed Surgical History: Reviewed Family history: Reviewed Allergies: Reviewed Social History: No tobacco, No regular ETOH use Code Status: Full Allergies Allergy/AdvReac Type Severity Reaction Status Date / Time cephalexin Allergy Unknown . Verified 11/05/23 15:06 Home Medications Medication Instructions Recorded Confirmed Type bupropion HCl 200 mg tablet,12 hr 200 mg PO BID 06/13/18 09/14/24 History sustained-release (Wellbutrin SR) cholecalciferol (vitamin D3) 25 1,000 unit PO QAM 06/13/18 09/14/24 History mcg (1,000 unit) tablet (Vitamin D3) pantoprazole 40 mg tablet,delayed 40 mg PO QAM 06/13/18 09/14/24 History release rivaroxaban 20 mg tablet (Xarelto) 20 mg PO QPM 06/13/18 09/14/24 History metoprolol succinate 25 mg 12.5 mg PO DAILY 01/19/21 09/14/24 History tablet,extended release 24 hr ezetimibe 10 mg tablet 10 mg PO DAILY 10/15/22 09/14/24 History allopurinol 300 mg tablet 300 mg PO DAILY #90 tabs 11/05/22 09/14/24 Rx mecobalamin (vitamin B12) 5,000 1,000 mcg PO .Q OTHER DAY 04/30/23 09/14/24 History mcg disintegrating tablet sodium bicarbonate 650 mg tablet 650 mg PO BID #180 tabs 08/24/24 09/14/24 Rx azithromycin 250 mg tablet 250 mg PO DIRECTED 09/14/24 09/14/24 History colchicine 0.6 mg tablet 0.6 mg PO .ad directed PRN Other 09/14/24 09/14/24 History methylprednisolone 4 mg tablets in 4 mg PO DIRECTED 09/14/24 09/14/24 History a dose pack (Medrol (Luis)) Past Med/Surg History Problem List (Updated 09/14/24 @ 14:53 by Sachin Lopez MD) Acute hypoxemic respiratory failure Chronic anticoagulation (Acute) Bilateral wheezing (Acute) Retrosternal chest pain (Acute) BPH w urinary obs/LUTS B12 deficiency Imbalance Positive EVAN (antinuclear antibody) Seizure-like activity Neuropathy Dementia Gout History of pacemaker Nephrolithiasis Right ureteral calculus Hematuria Paroxysmal atrial fibrillation (Acute) on Xarelto Atrial fibrillation (Chronic) ADHD (attention deficit hyperactivity disorder) (Chronic) Paroxysmal atrial fibrillation (Acute) GERD (gastroesophageal reflux disease) (Chronic) controlled High cholesterol (Chronic) Atrial fibrillation with rapid ventricular response (Acute) Medical History Kidney stones Pacemaker Hiatal hernia Sleep apnea Surgical History History of cystoscopy History of esophagogastroduodenoscopy (EGD) History of colonoscopy History of cataract surgery Status post ablation of atrial fibrillation History of kidney surgery Family History Mother Cardiac disorder Stroke Diabetes Father Diabetes Other No significant family history Social History Smoking Status: Unknown if ever smoked Second Hand Exposure: No; Do You Dip or Chew Tobacco: No; Hx Alcohol Use: Yes Alcohol type: beer Hx Substance Use: No Preferred Language: Kosovan Communication Ability: Impaired Visual Impairment: Limited Hearing Ability: Normal Platform Architect Required: No Beliefs That Will Affect Care: None marital status: Current Living Situation: Spouse current occupational status: employed 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 NAD. Cooperative. HEENT: Atraumatic, normocephalic. Pulm: Scattered diffuse wheezing. Symmetrical chest rise. No increased work of breathing. No respiratory distress. Cardiac: RRR, -mrg. Radial pulses intact and symmetrical. Trace JVD above the clavicle. Abdominal: Nontender, nondistended, soft. BS present. Extremities: Warm and dry. Results & Data Results & Data Vital Signs (Past 12 Hours) Vital Signs Temp Pulse Pulse Resp BP BP Pulse Ox 09/14/24 13:00 70 16 94/72 L 91 09/14/24 12:50 89 L 09/14/24 12:21 70 18 93/69 L 94 09/14/24 12:12 71 09/14/24 11:55 09/14/24 11:55 70 18 142/92 H 95 09/14/24 11:55 09/14/24 11:45 36.6 C 76 18 120/77 95 O2 Del Method O2 Flow Rate 09/14/24 13:00 Nasal Cannula 2 09/14/24 12:50 Room Air 09/14/24 12:21 Room Air 09/14/24 12:12 09/14/24 11:55 Room Air 09/14/24 11:55 Room Air 09/14/24 11:55 Room Air 09/14/24 11:45 Room Air PG Care Time/CCT Total # of Minutes Spent Total Time Spent with Patient: Total time spent is greater than 50% in coordination of care (as documented) at patient's floor/unit and/or counseling patient: Coding Level of Care Code 97755 INT INP/OBS CARE 3/75MIN Diagnoses Acute hypoxemic respiratory failure J96.01 Paroxysmal atrial fibrillation I48.0 Dementia F03.90
[2024-09-14] MEDS ORDERED: ACETAMINOPHEN 325 MG TAB PO PRN (15:58)
[2024-09-14] MEDS ORDERED: ALBUT/IPRATROP 3MG/0.5MG NEB 3 ML VIAL NEB PRN (15:58)
--- NOTE | 2024-09-14 16:51 | Electrocardiogram Report ---
Test Reason : Blood Pressure : */* mmHG Vent. Rate : 73 BPM Atrial Rate : 277 BPM P-R Int : * ms QRS Dur : 130 ms QT Int : 446 ms P-R-T Axes : * -1 18 degrees QTcB Int : 491 ms Ventricular-paced rhythm Atrial flutter Abnormal ECG When compared with ECG of 08-Dec-2020 09:40, No significant change was found Confirmed by Fortunato Ospina ([id number]) on 09/14/2024 4:51:45 PM Referred By: REFERRED SELF Confirmed By: Fortunato Ospina
[2024-09-14 16:52] LABS: Troponin I High Sensitivity 6.1 pg/ml (0-20)
[2024-09-14] MEDS: methylPREDNISolone 40 MG in SYRINGE 0 ML IV SCH (17:07)
--- OUTSIDE RECORDS SUMMARY | 2024-09-14 18:19 | External Medical Summary | Continuity of Care Document ---
Author Name Unknown Organization [facility] [address] [place] [id number] Address [address] [place] [phone] Care Team Providers Care Statistical Secretary Name Role Phone Zheng Hilario Pierce Primary Care Physician [phone] Encounter [facility] [id number] Date(s): 07/01/24 - 07/01/24 [facility] [address] [facility] [address] [facility] [address] [address] Encounter Diagnosis Compression fracture of L1 vertebra(Discharge Diagnosis) - 07/01/24 Discharge Disposition: Home or Self Care Attending Physician: MD Wolfe Jesse Allergies, Adverse Reactions, Alerts Substance Criticality Severity Reaction Reaction Severity Status amiodarone 1 Amiodarone pois oning of undetermined intent Active Keflex hyperactivity Active 1rash Assessment and Plan Extracted from: Title:Orthopaedics Office Visit Note Author:Jordan john MD, Daniel Date:07/01/24 Patient is 64-year-old male with [id number] fracture, much improved with physical therapy and treatment injection. Given patient'slack of pain at rest andonly provoked with flexion maneuver, will encouragefinishing physical therapy and continue with home exerciseprogram.Patient will no longer require [id number] this time. Given patient'spositive results with trigger points at last visit, can considertrigger point injections withcorticosteroids for future flareups. Return to clinic in 6 to 8 weeks, as needed. Immunizations Given and Recorded Vaccine Date Status Refusal Reason pneumococcal 20-valent conjugate vaccine 1 08/26/23 Given influenza virus vaccine, inactivated 06/18/22 Give n influenza virus vaccine, inactivated 06/17/18 Give n influenza virus vaccine, inactivated 07/02/17 Give n influenza virus vaccine, inactivated 07/12/15 Give n influenza virus vaccine, inactivated 08/10/14 Give n influenza virus vaccine, inactivated 06/26/13 Give n influenza virus vaccine, inactivated 09/25/12 Give n zoster vaccine, inactivated 2 03/31/20 Recorded zoster vaccine, inactivated 3 11/23/19 Recorded tetanus/diphtheria/pertuss, acel (Tdap) 01/16/16 G iven diphtheria/tetanus/pertuss, acel (DTaP) 02/15/06 R ecorded measles/mumps/rubella virus vaccine 07/26/97 Recor ded tetanus toxoids-diphtheria, Td (Adult) 07/09/97 Re corded tetanus toxoids-diphtheria, Td (Adult) 07/09/97 Re corded 1Early/Late Reason: Early/Late Reason: Other : Behind 2Result Comment: #2 3Result Comment: #1 Medications allopurinol 100 mg oral tablet Start: 09/02/23 11:52:00 AM EST, See Instructions, Disp# 90 tab, Refills: 3, TAKE 1 TABLET BY MOUTHEVERY DAY, Pharmacy: [facility] Start Date: 09/02/23 Status: Ordered buPROPion 200 mg/12 hours (SR) oral tablet, extended release Start: 09/02/23 11:52:00 AM EST, 1 tab, PO, bid, Disp# 180 tab, Refills: 3, Pharmacy: [facility] Start Date: 09/02/23 Stop Date: 08/27/24 Status: Ordered colchicine 0.6 mg oral tablet Start: 07/30/22 2:04:00 PM EST, 1 tab, PO, Daily, PRN: as needed for gout pain Start Date: 07/30/22 Status: Ordered ezetimibe 10 mg oral tablet Start: 09/02/23 1:28:00 PM EST, 1 tab, PO, Daily, Disp# 90 tab, Refills: 3, Pharmacy: [facility] Start Date: 09/02/23 Status: Ordered Metoprolol Succinate ER 25 mg oral tablet, extended release Start: 03/30/24 9:19:00 AM EDT, See Instructions, Disp# 45 tab, Refills: 3, TAKE 1/2 TABLET BY MOUTH DAILY, Pharmacy: [facility] Start Date: 03/30/24 Status: Ordered pantoprazole 40 mg oral delayed release tablet Start: 09/02/23 11:52:00 AM EST, See Instructions, Disp# 90 tab, Refills: 3, TAKE 1 TABLET BY MOUTHONCE DAILY MAY USE TWICE DAILY IF NEEDED, Pharmacy: [facility] Start Date: 09/02/23 Status: Ordered sodium bicarbonate Start: 07/31/21 2:00:00 PM EST, 1 tab, PO, bid Start Date: 07/31/21 Status: Ordered Tylenol Start: 03/07/17 7:01:00 PM EDT, 650 mg =, PO, q6h, PRN: Pain - Mild Start Date: 03/07/17 Status: Ordered Vitamin B12 Start: 08/06/23 2:03:00 PM EST, 5,000 mcg =, PO, Daily Start Date: 08/06/23 Status: Ordered Vitamin D3 2000 intl units oral capsule Start: 03/28/12 10:43:00 AM EDT, 1 cap, PO, Daily Start Date: 03/28/12 Status: Ordered Xarelto 20 mg oral tablet Start: 04/02/24 10:10:00 AM EDT, 1 tab, PO, qPM, Disp# 90 tab, Refills: 2, Pharmacy: [facility] Start Date: 04/02/24 Status: Ordered Mental Status 07/01/24 Barriers to Learning one year None evide nt Mandatory Health Literacy Documentation Yes Health Literacy Communication Barriers N ever Primary Language Mosotho Problem List Condition Confirmation Course Effective Dates Status H ealt Status Informant ADHD - Attention deficit disorder with hyperactivity Confirmed Active Atrial fibrillation Confirmed Active Arthritis of left wrist Confirmed Active Heart block, AV Confirmed Active Compression fracture of L1 vertebra Confirmed Active Elevated erythrocyte sedimentation rate Confirmed Active Hyperlipidemia Confirmed Active Prediabetes Confirmed Active Episodic confusion Confirmed Active Low back pain Confirmed Active Lumbosacral radiculopathy at L1 Confirmed Active MGUS (monoclonal gammopathy of unknown significance) Confirmed Active Trigger point Confirmed Active JADYN on CPAP Confirmed Active Health care maintenance Confirmed Active 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 Plantar wart of left foot Confirmed Active Diagnosis Diagnosis Type Effective Dates Health Status Clinical Service Informant Compression fracture of L1 vertebra Discharge Diagnosis 07/01/24 Non-Specified Procedures Procedure Date Related Diagnosis Body Site Status EMG - Electromyography 08/13/[address] of brain 1 08/08/22 Completed MRI of brain without contrast 2 05/16/22 Completed Cystoscopy of ureter 3 12/19/20 Co mpleted Emergency medical services 4, 5 06/14/18 Completed Colonoscopy 6 11/21/17 Completed Chest x-ray 7 11/20/17 Completed Emergency medical services 8 11/20/17 Completed Insertion of permanent pacem yoni system 06/10/17 Completed Cardioversion 9 02/12/17 Completed Emergency medical services 10 12/02/16 Completed Chest x-ray 11 10/31/16 Completed Emergency medical services 12 10/31/16 Completed EKG 13 10/30/16 Completed US scan of inguinal region 14 03/14/15 Completed US scan of scrotum 15 03/14/15 Com pleted EEG 16 11/15/14 Completed Cardioversion 17 07/13/14 Complete d EKG 05/22/13 Completed rem cataract left eye/lens implant 03/18/13 Completed rem right cataract/lens implant 03/04/13 Completed eye exam-cataract beni 02/09/13 Com pleted Chest x-ray 07/11/07 Completed stress echo [facility] 07/11/07 Complete d KUB 12/22/02 Completed IVP 12/08/02 Completed Ultrasounc of neck 10/25/01 Comple crystal Barium swallow 02/16/00 Completed Hernia 59 Completed 1Impression: There is no hemorrhage, mass effect or evidence of acute territorial ischemia by CT criteria. There is no aneurysm, high grade stenosis, or focal vessel cut off throughout the intracranial circulation. 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 There is also origin of the left posterior cerebral artery. this corresponds to the findings seen on the MR angiogram of thebrain. 2No acute abnormality and in particular no evidence of acute infarct 3Right ureteral calculus 4sent to ER for evaluation of possible pneumonia 5pt in CHF 6Entire colon examined appears normal. Repeat 10 yrs 7[facility] Mild asymmetric interstitial thickening/edema left greater than right. No evidence of lobar consolidation. 8pt suspected aspiration during colonoscopy procedure today. Briefly hypoxic. - admitted 9JF @ [facility] 10cardiac assessment - S-Qgj-winujfacg prior to arriving at ER 11Cardiomegaly. Congestive failure 12ADHD, atrial fib, GERD, High cholesterol 13non-specific intra-ventricular conduction block 14Small fat contaimina reducible left inguinal hernia 151. Nonspecific heterogenetiy of the riht testicle. No discrete masses are seen. There are at least 2 tiny microliths present. 2. small left hydrocele. 3. Normal blood flowe bilaterally 4. Bilateral epidiymal cysts 16EEG WNL 17done by YARELI at [facility] Social History Social History Type Response Smoking Status Never smoked cigaret rony Sex Male Sex Representation Male (finding) Ortho Outpt Note * MD Wolfe Jesse: MODIFY MD Wolfe Jesse: MODIFY Event Display: Ortho Outpt Note Authored Date: [id number] Primary Care Provider MD Zheng Michael P Chief Complaint f/u back pain. CT @ [facility] History of Present Illness Mr. Lopez is a 64M who presents to sports medicine clinic as a follow up for low back pain. HPI 05/20/2024:Mr. Lopez is a 64M who presents to clinic for low back pain Prior L1 vertebralcompressionfracture previouslymanaged with Dr. Church. onset: 1 month ago, after several falls. noted he wasn't picking his feet up. location: left low back radiation: to posterior thigh bilaterally with flexion quality: dull provocation: flexion palliation: rest medication: Tylenol therapy: will start PT shortly numbness in feet bilaterally Denies spasms, weakness, changes in bowel and bladder, saddle anesthesia. Interval history 07/01/2024: PT has been going well. Has gone to several sessions, and has been doing HEP. Pain is "a lot betterin my back" and notes balance is better. Pain is currently 0/10, and only notes pain with bending. Has not been using warm and foam brace much. Trigger point injection helped 50% for a few days.Does not wish to restart gabapentin. Physical Exam Appearance: No deformities noted, patient is ambulating with slow reciprocal gait Palpation: TTP over upper lumbar midline and upper lumbar paraspinals. Tight muscles upper lumbar paraspinals No TTP over midline spinous processes. NoSI joint tenderness noted, no tenderness noted over sciatic notches bilaterally, no tenderness or greater trochanters. Back ROM: no pain with L/S flexion limited with L/S extension pain with facet loading on right, no pain on left Assessment/Plan Patient is 64-year-old male with [id number] fracture, much improved with physical therapy and treatment injection. Given patient'slack of pain at rest andonly provoked with flexion maneuver, will encouragefinishing physical therapy and continue with home exerciseprogram.Patient will no longer require [id number] this time. Given patient'spositive results with trigger points at last visit, can considertrigger point injections withcorticosteroids for futureflareups. Return to clinic in 6 to 8 weeks, as needed. Attestation ATTENDING PHYSICIAN ATTESTATION: I was present with fellow during rehman portions of the history and physical exam. I discussed the case with and agree with the findings and plan, as documented in the fellow's note. - Dr.Jesse Wolfe, [facility] Problem List/Past Medical History Ongoing Acute gout of foot| Status: Inactive ADHD - Attention deficit disorder with hyperactivity Arthritis of left wrist Atrial fibrillation Cataract| Status: Inactive Elevated erythrocyte sedimentation rate Episodic confusion Health care maintenance Heart block, AV Hiatal hernia| Status: Inactive History of pacemaker| Status: Inactive Hyperlipidemia Low back pain Lumbosacral radiculopathy at L1 MGUS (monoclonal gammopathy of unknown significance) JADYN on CPAP Plantar wart of left foot Prediabetes SLAC (scapholunate advanced collapse) wrist Trigger point Resolved Atrial flutter Atrial tachycardia CHEST PAIN Folliculitis Renal stone Procedure/Surgical History EMG - Electromyography| Service Date: 2CT of brain| Service Date: 08/08/2022MRI of brain without contrast| Service Date: 2[facility]ystoscopy of ureter| [facility]| Service Date: 06/14/2018Colonoscopy| Service Date: 11/21/2017Chest x-ray| [facility]| Service Date: 11/20/2017Insertion of permanent pacemaker system| Service Date: 06/10/2017Cardioversion| Service Date: 02/12/2017[facility]| Service Date: 12/02/[facility]| Service Date: 10/31/2016Chest x-ray| Service Date: 10/31/2016EKG| Service Date: 10/30/2016US scan of inguinal region| Service Date: 03/14/2015US scan of scrotum| Service Date: 03/14/2015EEG| Service Date: 11/15/2014Cardioversion| Service Date: 07/13/2014EKG| Service Date: 05/22/2013rem cataract left eye/lens implant| Service Date: 03/18/2013rem right cataract/lens implant| Service Date: 03/04/2013eye exam-cataract beni| Service Date: 02/09/2013Chest x-ray| Service Date: 07/11/2007stress echo [facility]| Service Date: 07/11/2007KUB| Service Date: 12/22/2002IVP| Service Date:12/08/2002Ultrasounc of neck| Service Date: 10/25/2001Barium swallow| Service Date: 02/16/2000Hernia| Service Date: 1960 Medications acetaminophen(Tylenol), 650 mg, PO, q6h, PRN allopurinol(allopurinol 100 mg oral tablet), See Instructions, 3 refills buPROPion(buPROPion 200 mg/12 hours (SR) oral tablet, extended release), 200 mg= 1 tab, PO, bid, 3 refills cholecalciferol(Vitamin D3 2000 intl units oral capsule), 2000 Int_Unit= 1 cap, PO, Daily colchicine(colchicine 0.6 mg oral tablet), 0.6 mg= 1 tab, PO, Daily, PRN cyanocobalamin(Vitamin B12), 5000 mcg, PO, Daily ezetimibe(ezetimibe 10 mg oral tablet), 10 mg= 1 tab, PO, Daily, 3 refills metoprolol(Metoprolol Succinate ER 25 mg oral tablet, extended release), See Instructions, 3 refills pantoprazole(pantoprazole 40 mg oral delayed release tablet), See Instructions, 3 refills rivaroxaban(Xarelto 20 mg oral tablet), 1 tab, PO, qPM sodium bicarbonate, 1 tab, PO, bid Allergies Keflexhyperactivity amiodaroneAmiodarone poisoning of undetermined intent Social History Smoking Status Never smoked cigarettes Alcohol - Denies Alcohol Use Use:Current Average drinks per episode in last year:0 - Comments: No ETOH due to Afib Employment/School Status:Employed 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 Diabetes: Mother and Father. Gout: Father. Hiatal hernia..: Mother. PA (myocardial infarction): Mother. Stroke: Mother. Health Status Family Member(s) Family Member(s) Relationship: Mother, Name: MOM, Age: 80 Weeks, Cause: CABG x 6 -- PA ( non-smoker) Relationship: Father, Name: , Age: 87 Years, Cause: Renal failure Relationship: Sister, Name: , Age: 59 Years, Cause: PA Relationship: Brother, Name: , Age: 49 Years, Cause: PA Immunizations Vaccine Date Status pneumococcal 20-valent conjugate vaccine 08/26/2023 Given Comments : Early/Late Reason: Other : Behind influenza virus vaccine, inactivated 06/18/2022 Given zoster vaccine, inactivated 03/31/2020 Recorded Comments : #2 zoster vaccine, inactivated 11/23/2019 Recorded Comments : #1 influenza virus vaccine, inactivated 06/17/2018 Given influenza virus vaccine, inactivated 07/02/2017 Given tetanus/diphtheria/pertuss, acel (Tdap) 01/16/2016 Given influenza virus vaccine, inactivated 07/12/2015 Given influenza virus vaccine, inactivated 08/10/2014 Given influenza virus vaccine, inactivated 06/26/2013 Given influenza virus vaccine, inactivated 09/25/2012 Given diphtheria/tetanus/pertuss, acel (DTaP) 02/15/2006 Recorded measles/mumps/rubella virus vaccine 07/26/1997 Recorded tetanus toxoids-diphtheria, Td (Adult) 07/09/1997 Recorded tetanus toxoids-diphtheria, Td (Adult) 07/09/1997 Recorded Recommendations Health Maintenance Pending(in the next year) OverDue Adult Influenza Vaccine due03/22/24and every 1year Due Adult COVID-19 Vaccination due07/01/24Unknown Frequency Adult Social Determinants of Health Screening due07/01/24Unknown Frequency Falls Plan of Care due07/01/24Unknown Frequency Due In Future Body Mass Index not due until05/06/25and every 366day Satisfied(in the past 1 year) Satisfied Body Mass Index 04/02/24.Satisfied by ARVIND Campbell Vanessa T Pneumococcal Vaccine Older Adults on08/26/23.Satisfied by ARVIND Melton Stacey Electronic Signature on File Electronically Reviewed/Signed by: Luis Cohen MD Author Signature Dt/Tm:07/01/2024 08:56 AM Resident Division of Sports Medicine Electronically Reviewed/Signed by: Zoe Wareer Signature Dt/Tm: 07/01/2024 09:05 AM Division of Sports Medicine DS Patient Care team information Care Team Personnel Name: MD Marce, Hilario Pelayo Position: Physician - Family Med Member Role: Primary Care Provider Address: [address] [place] [address] [place] Care Team Related Persons Name: ALEKS LOPEZ Name: CARLO LOPEZ Name: CARLO LOPEZ
--- OUTSIDE RECORDS SUMMARY | 2024-09-14 18:19 | External Medical Summary | Continuity of Care Document ---
Author Name Unknown Organization [facility] [address] [facility] Address [address] [place], [place] [id number] Care Team Providers Care Trauma Surgeon Name Role Phone Hilario Zheng Primary Care Physician [phone] Encounter [facility] [id number] Date(s): 08/04/24 - 08/04/24 [facility] [address], [address] [place] [address] [phone] Encounter Diagnosis Atrial fibrillation(Discharge Diagnosis) - 08/04/24 History of pacemaker(Discharge Diagnosis) - 08/04/24 Heart block, AV(Discharge Diagnosis) - 08/04/24 Diastolic dysfunction(Discharge Diagnosis) - 08/04/24 Discharge Disposition: Home or Self Care Attending Physician: DO Rajan Jason D Allergies, Adverse Reactions, Alerts Substance Criticality Severity Reaction Reaction Severity Status amiodarone 1 Amiodarone pois oning of undetermined intent Active Keflex hyperactivity Active 1rash Assessment and Plan Extracted from: Title:Cardiology Office Visit Note Author:DO Rajan Jason D Date:08/04/24 1.Atrial fibrillation 2.Heart block, AV 3.History of pacemaker 4.Diastolic dysfunction He has chronic atrial fibrillation. His atrial for him he is paced all the time we know that his LV function is normal. He is on anticoagulation and his CBC and BMP were stable. He denies any TIA or strokelike symptoms have any other. his pacemaker is functioning normally. They were concerned about 1 year of battery life. We discussed the idea of elective replacement interval and when his device gets to KRISTIAN we will electively change out the battery. He does have an RV lead in the atrial port and is in essence pacemaker dependent which will be important at the time of his generator change. He is not having worsening heart failure symptoms. His blood pressure is well-controlled. It sounds like his functional capacity is stable and is most limited due to chronic low back pain. Will see Jenny in 6 months. I will see him in a year. Continue to follow in device clinic for close monitoring. Immunizations Given and Recorded Vaccine Date Status [...] tab, Refills: 3, TAKE 1 TABLET BY MOUTHEVER, Pharmacy: [facility] Start Date: 09/02/23 Status: Ordered buPROPion 200 mg/12 hours (SR) oral tablet, extended release Start: 09/02/23 11:52:00 AM EST, 1 tab, PO, bid, Disp# 180 tab, Refills: 3, Pharmacy: [facility] Start Date: 09/02/23 Stop Date: 08/27/24 Status: Ordered colchicine 0.6 mg oral tablet Start: 07/30/22 2:04:00 PM EST, 1 tab, PO, Daily, PRN: as needed for gout pain Start Date: 07/30/22 Status: Ordered ezetimibe 10 mg oral tablet Start: 09/02/23 1:28:00 PM EST, 1 tab, PO, Daily, Disp# 90 tab, Refills: 3, Pharmacy: [facility] Start Date: 09/02/23 Status: Ordered Metoprolol Succinate ER 25 mg oral tablet, extended release Start: 03/30/24 9:19:00 AM EDT, See Instructions, Disp# 45 tab, Refills: 3, TAKE 1/2 TABLET BY MOUTH DAILY, Pharmacy: [facility] Start Date: 03/30/24 Status: Ordered pantoprazole 40 mg oral delayed release tablet Start: 07/13/24 6:26:00 PM EDT, See Instructions, Disp# 90 tab, Refills: 4, TAKE 1 TABLET BY MOUTH ONCE DAILY MAY USE TWICE DAILY IF NEEDED, Pharmacy: [facility] Start Date: 07/13/24 Status: Ordered sodium bicarbonate Start: 07/31/21 2:00:00 [...] qPM, Disp# 90 tab, Refills: 2, Pharmacy: [facility] Start Date: 04/02/24 Status: Ordered Mental Status 08/04/24 Barriers to Learning one year None evide nt Mandatory Health Literacy Documentation Yes Health Literacy Communication Barriers N ever Primary Language Slovenian Problem List Condition Confirmation Course Effective Dates Status H ealth Status Informant ADHD - Attention deficit disorder with hyperactivity Confirmed Active Atrial fibrillation Confirmed Active Arthritis of left wrist Confirmed Active Heart block, AV Confirmed Active Compression fracture of L1 vertebra Confirmed Active Diastolic dysfunction Confirmed Active Elevated erythrocyte sedimentation rate Confirmed [...] Effective Dates Health Status Clinical Service Informant Heart block, AV Discharge Diagnosis 08/04/24 Diastolic dysfunction Discharge Diagnosis 08/04/24 Atrial fibrillation Discharge Diagnosis 08/04/24 History of pacemaker Discharge Diagnosis 08/04/24 Procedures Procedure Date Related Diagnosis Body Site [...] pleted Chest x-ray 07/11/07 Completed stress echo [facility] 07/11/07 Complete d KUB 12/22/02 Completed IVP [...] colon examined appears normal. Repeat 10 yrs 7MN Mild asymmetric interstitial thickening/edema left greater than right. No evidence of lobar consolidation. 8pt suspected aspiration during colonoscopy procedure today. Briefly hypoxic. - admitted 9JF @ [facility] 10cardiac assessment - [id number] prior to arriving at ER 11Cardiomegaly. Congestive failure 12ADHD, atrial fib, GERD, High cholesterol 13non-specific intra-ventricular conduction block 14Small fat contaimina reducible left inguinal hernia 151. Nonspecific heterogenetiy of the riht testicle. No discrete masses are seen. There are at least 2 tiny microliths present. 2. small left hydrocele. 3. Normal blood flowe bilaterally 4. Bilateral epidiymal cysts 16EEG WNL 17done by JF at [facility] Vital Signs Most recent to oldest [Reference Range]: 1 Patient Weight 84 kg (08/04/24 2:24 PM) Heart Rate 75 bpm (08/04/24 2:23 PM) Blood Pressure 126/82mmHg (08/04/24 2:23 PM) BP Location # 1 Right Arm (08/04/24 2:23 PM) Social History Social History Type Response Smoking Status Never smoked cigaret rony Sex Male Sex Representation Male (finding) Cardiology Outpatient Note * DO Rajan Jason D: PERFORM Event Display: Cardiology Outpt Note Authored Date: Primary Care Provider MD Marce, Hilario Pelayo Chief Complaint 6 mon f/u History of Present Illness He denies any chest pain or chest pressure. He is had no severe shortness of breath. He did have a fall this summer which was mechanical. He denies any presyncope or syncope. He has no lower extremity edema. He is unaware of any palpitations or fluttering. He denies any dark stools or black stools or bleeding or bruising. His appetite and weight are stable. 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 Review of Systems PAST MEDICAL HISTORY: 1. Status post pulmonary vein isolation for atrial fibrillation 11/2016. 2. Post ablation atrial tachycardia failing Tikosyn and amiodarone. Status post redo ablation for atrial tachycardia x2, February 2017 and 04/2017. 3. A. Status post placement of a Medtronic pacemakerOllie DR MRI- compatible device with the RV-lead placed at the His originating from the atrial port; a backup RV lead originates from the ventricular port (05/2017). B. Status post AV node ablation 05/2017. 4. Negative stress echo for ischemia fall of 2012. 5. Hyperlipidemia. 6. Adult ADHD. 7. Hypercholesterolemia and GERD. 8. Normal left ventricular size and function (60-65%)with Borderline RV dysfunction, 07/2023 with type 2 diastolic dysfunction. SOCIAL HISTORY: He rarely smokes noting, however, a rare cigar. He rarely has alcohol. He is . Physical Exam Vitals & Measurements HR:68(Monitored) BP:102/68 SpO2:97% WT:86.000kg(Dosing) WT:86kg PHYSICAL EXAMINATION: He is awake, alert HEENT: 1+ carotid upstrokes. There was no evidence of carotid bruits. His jugular venous pressure appeared normal. His sclerae was anicteric. His hearing is normal. Lungs clear auscultation bilaterally, no rales, rhonchi, or wheezing. Heart: Regular rate with chronic pacing. No a ppreciable murmurs, rubs, or gallops. Extremities: No clubbing, cyanosis, or edema. Psychiatric: His affect is appeared appropriate. Physical Exam Vitals & Measurements HR:75(Monitored) BP:126/82 SpO2:97% WT:84kg WT:84.000kg(Dosing) Assessment/Plan 1.Atrial fibrillation 2.Heart block, AV 3.History of pacemaker 4.Diastolic dysfunction He has chronic atrial fibrillation. His atrial for him he is paced all the time we know that his LV function is normal. He is on anticoagulation and his CBC and BMP were stable. He denies any TIA or strokelike symptoms have any other. his pacemaker is functioning normally. They were concerned about 1 year of battery life. We discussed the idea of elective replacement interval and when his device gets to [facility]IAN we will electively change out the battery. He does have an RV lead in the atrial port and is in essence pacemaker dependent which will be important at the time of his generator change. He is not having worsening heart failure symptoms. His blood pressure is well- controlled. It sounds like his functional capacity is stable and is most limited due to chronic low back pain. Will see Jenny in 6 months. I will see him in a year. Continue to follow in device clinic for close monitoring. Problem List/Past Medical History Ongoing Acute gout of foot| Status: Inactive ADHD - Attention deficit disorder with hyperactivity Arthritis of left wrist Atrial fibrillation Cataract| Status: Inactive Compression fracture of L1 vertebra Diastolic dysfunction Elevated erythrocyte sedimentation rate Episodic confusion Health [...] Service Date: 2Cystoscopy of ureter| [facility]| Service Date: 06/14/2018Colonoscopy| Service Date: 11/21/2017Chest x-ray| [facility]| Service Date: 11/20/2017Insertion of permanent pacemaker system| Service Date: 06/10/2017Cardioversion| Service Date: 02/12/2017[facility]| Service Date: 12/02/2016[facility]| Service Date: 10/31/2016Chest x-ray| Service Date: 10/31/2016EKG| Service Date: 10/30/2016US scan of inguinal region| Service Date: 03/14/2015US scan of scrotum| Service Date: 03/14/2015EEG| Service Date: 11/15/2014Cardioversion| Service Date: 07/13/2014EKG| Service Date: 05/22/2013rem cataract left eye/lens implant| Service Date: 03/18/2013rem right cataract/lens implant| Service Date: 03/04/2013eye exam-cataract beni| Service Date: 02/09/2013Chest x-ray| Service Date: 07/11/2007stress echo [facility]| Service Date: 07/11/2007KUB| Service Date: 12/22/2002IVP| Service [...] mg oral delayed release tablet), See Instructions, 4 refills rivaroxaban(Xarelto 20 mg oral tablet), 1 tab, PO, qPM sodium bicarbonate, 1 tab, PO, bid Allergies Keflexhyperactivity amiodaroneAmiodarone poisoning of undetermined intent Social History Smoking Status Never smoked cigarettes Alcohol - Denies Alcohol Use Use:Current Average drinks per episode in last year:0 - Comments: No ETOH due to Afib 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 Diabetes: Mother and Father. Gout: Father. Hiatal hernia..: Mother. [place] (myocardial infarction): Mother. Stroke: Mother. 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
--- OUTSIDE RECORDS SUMMARY | 2024-09-14 18:19 | External Medical Summary | Continuity of Care Document ---
Author Name Unknown Organization [facility] [address] [facility] Address [address] [place], [place] [id number] Care Team Providers Care Scrap Hoist Operator Name Role Phone Hilario Zheng Primary Care Physician [phone] [id number] Date(s): 08/27/24 - 08/27/24 [facility] [address], [address] [place] [address] [phone] Discharge Disposition: Home or Self Care Attending Physician: DO Rajan Jason D Referring Physician: DO Rajan Jason D Allergies, Adverse Reactions, Alerts Substance Criticality Severity Reaction Reaction Severity Status amiodarone 1 Amiodarone pois oning of undetermined intent Active Keflex hyperactivity Active 1rash Immunizations Given and Recorded Vaccine Date Status [...] TAKE 1 TABLET BY MOUTHEVERY DAY, Pharmacy: [facility] Start Date: 09/02/23 Status: Ordered buPROPion 200 mg/12 hours (SR) oral tablet, extended release Start: 09/02/23 11:52:00 AM EST, 1 tab, PO, bid, Disp# 180 tab, Refills: 3, Pharmacy: [facility] Start Date: 09/02/23 Stop Date: 08/27/24 Status: Ordered colchicine 0.6 mg oral tablet Start: 07/30/22 2:04:00 PM EST, 1 tab, PO, Daily, PRN: as needed for gout pain Start Date: 07/30/22 Status: Ordered ezetimibe 10 mg oral tablet Start: 09/02/23 1:28:00 PM EST, 1 tab, PO, Daily, Disp# 90 tab, Refills: 3, Pharmacy: [facility] Start Date: 09/02/23 Status: Ordered Metoprolol Succinate ER 25 mg oral tablet, extended release Start: 03/30/24 9:19:00 AM EDT, See Instructions, Disp# 45 tab, Refills: 3, TAKE 1/2 TABLET BY MOUTH DAILY, Pharmacy: [facility] Start Date: 03/30/24 Status: Ordered pantoprazole 40 mg oral delayed release tablet Start: 07/13/24 6:26:00 PM EDT, See Instructions, Disp# 90 tab, Refills: 4, TAKE 1 TABLET BY MOUTH ONCE DAILY MAY USE TWICE DAILY IF NEEDED, Pharmacy: [facility] Start Date: 07/13/24 Status: Ordered sodium [...] qPM, Disp# 90 tab, Refills: 2, Pharmacy: [facility] Start Date: 04/02/24 Status: Ordered Problem List Condition Confirmation Course Effective Dates [...] Plantar wart of left foot Confirmed Active Procedures Procedure Date Related Diagnosis Body Site [...] pleted Chest x-ray 07/11/[address] [facility] 07/11/07 Complete d KUB 12/22/02 Completed IVP [...] today. Briefly hypoxic. - admitted 9JF @ [facility] 10cardiac assessment - [id number] prior to arriving at ER 11Cardiomegaly. Congestive [...] cysts 16EEG WNL 17done by JF at [facility] Social History Social History Type Response Smoking Status Never smoked cigaret rony Sex Male Sex Representation Male (finding) Patient Care team information Care Team Personnel Name: MD Marce, Hilario Pelayo Position: Physician - Family Med Member Role: Primary Care Provider Address: [facility] [address] [place] [address] [place] Care Team Related Persons Name: ALEKS LOPEZ Name: CARLO LOPEZ Name: CARLO LOPEZ
--- OUTSIDE RECORDS SUMMARY | 2024-09-14 18:19 | External Medical Summary | Continuity of Care Document ---
Author Name Unknown Organization [facility] [address] [place] [address] [place] [id number] Care Team Providers Care Handkerchief Maker Name Role Phone Hilario Zheng Primary Care Physician [phone] Encounter [facility] [id number] Date(s): 07/07/24 - 07/07/24 [facility] [place] [facility] [address], [address] [place] [address] [phone] Discharge Disposition: Home or Self Care Attending [...] TAKE 1 TABLET BY MOUTHEVERY DAY, Pharmacy: [facility] Start Date: 09/02/23 Status: Ordered buPROPion 200 mg/12 hours (SR) oral tablet, extended release Start: 09/02/23 11:52:00 AM EST, 1 tab, PO, bid, Disp# 180 tab, Refills: 3, Pharmacy: [facility] Start Date: 09/02/23 Stop Date: 08/27/24 Status: Ordered colchicine 0.6 mg oral tablet Start: 07/30/22 2:04:00 PM EST, 1 tab, PO, Daily, PRN: as needed for gout pain Start Date: 07/30/22 Status: Ordered ezetimibe 10 mg oral tablet Start: 09/02/23 1:28:00 PM EST, 1 tab, PO, Daily, Disp# 90 tab, Refills: 3, Pharmacy: [facility] Start Date: 09/02/23 Status: Ordered Metoprolol Succinate ER 25 mg oral tablet, extended release Start: 03/30/24 9:19:00 AM EDT, See Instructions, Disp# 45 tab, Refills: 3, TAKE 1/2 TABLET BY MOUTH DAILY, Pharmacy: [facility] Start Date: 03/30/24 Status: Ordered pantoprazole 40 mg oral delayed release tablet Start: 09/02/23 11:52:00 AM EST, See Instructions, Disp# 90 tab, Refills: 3, TAKE 1 TABLET BY MOUTHONCE DAILY MAY USE TWICE DAILY IF NEEDED, Pharmacy: [facility] Start Date: 09/02/23 Status: Ordered [...] qPM, Disp# 90 tab, Refills: 2, Pharmacy: [facility] Start Date: 04/02/24 Status: Ordered Problem List [...] pleted Chest x-ray 07/11/07 Completed stress echo [facility] 07/11/07 Complete d KUB 12/22/02 Completed IVP [...] colon examined appears normal. Repeat 10 yrs 7[facility] Mild asymmetric interstitial thickening/edema left greater than right. No evidence of lobar consolidation. 8pt suspected aspiration during colonoscopy procedure today. Briefly hypoxic. - admitted 9JF @ [facility] 10cardiac assessment - K-[id number]-[id number] prior to arriving at ER 11Cardiomegaly. Congestive [...] cysts 16EEG WNL 17done by JF at [facility] Social History Social History Type Response Smoking Status Never smoked cigaret rony Sex Male Sex Representation Male (finding) Patient Care team information Care Team Personnel Name: MD Marce, Hilario Pelayo Position: Physician - Family Med Member Role: Primary Care Provider Address: [facility] [address] [place] [address] [place] Care Team Related Persons Name: ALEKS LOPEZ Name: CARLO LOPEZ Name: CARLO LOPEZ
[2024-09-14] MEDS: RIVAROXABAN 20 MG TAB PO SCH (19:52)
[2024-09-14] MEDS: SODIUM BICARBONATE 650 MG TAB PO SCH (19:52)
[2024-09-14] MEDS: CYANOCOBALAMIN (B-12) 500 MCG TABLET PO SCH (19:52)
[2024-09-14] MEDS: buPROPion SR 100 MG TABCR PO SCH (19:53)
[2024-09-14 23:43] VITALS: RESP 20
[2024-09-15] MEDS: CHOLECALCIFEROL 25 MCG (1000 UNITS) TAB PO SCH (08:33)
[2024-09-15] MEDS: EZETIMIBE 10 MG TAB PO SCH (08:33)
[2024-09-15] MEDS: allopurinoL 300 MG TAB PO SCH (08:33)
[2024-09-15] MEDS: PANTOprazole 40 MG TAB PO SCH (08:33)
[2024-09-15] MEDS: METOPROLOL SUCC 25MG EXT REL TAB PO SCH (08:34)
[2024-09-15 11:48] VITALS: BP 121/71; PULSE 73; TEMP 97.7; O2SAT 90
--- NOTE | 2024-09-15 12:06 | Discharge Summary ---
Discharge Summary Date of Service September 15, 2024 Principal Dx & Hospital Course #1 = Principal Diagnosis (1) Acute hypoxemic respiratory failure: 64-year-old male with a past history of A-fib history of ablation and heart block s/p pacemaker placement, preserved EF with grade 2 diastolic dysfunction who presents with shortness of breath, hypoxia and diffuse wheezing and chest discomfort on admission. High sensitive troponin is normal despite more than 1 hour of chest discomfort. He is RSV positive, chest x-ray shows mild interstitial pulmonary edema. Suspect commendation of mild HFpEF but symptoms prominent from RSV. Low suspicion for cardiac etiology of his pain given negative trop x2. Hypoxic respiratory failure due to RSV +/- HFpEF With RSV positive, and mild pulmonary congestion Supportive care for RSV. Continue IS, FV - Significant wheezing on admission, treated with IV methylpred. Discharge with prednisone taper Ambulated in the [place] day of discharge while maintaining oxygen saturation >93%. Stable for discharge to home. Discussed isolation/prevention of spread of RSV. Chest pain - Hx A-fib s/p ablation, heart block s/p pacemaker placement, HFpEF grade 2 diastolic dysfunction Echo: EF 65-70%, no regional wall motion abnormalities. findings not suggestive of pulm HTN. Mild pulmonary edema and congestion on x-ray. Low suspicion for ACS given negative Trope x 2 and reassuring exam, no acute events on telemetry, presenting chest pain likely from RSV as above. Patient reports no additional episodes of chest pain today. Chronic stable issues: CKD: Creatinine at baseline Positive EVAN: Followed with rheumatology. No acute change in management - Memory deficit, dementia: Patient with some episodes of confusion and memory deficits although his these improved after stopping his statin. Follows with neurology. JADYN: CPAP at bedtime dispo: Stable for discharge home today with steroid taper updated by phone 09/15 (2) Paroxysmal atrial fibrillation: (3) Dementia: Notes For Next Care Provider admitted with chest pain, likely due to RSV improved with IV steroids and maintain normal oxygen saturations on room air discharged with p.o. prednisone taper. Admission HPI Per Admitting Provider Huang Ascencio is a 64-year-old male with past medical history of positive EVAN, paroxysmal A-fib on Xarelto, ADHD, GERD who presents emergency department with left-sided chest pain with radiation causes chest, wheezing, cough, congestion. He has been taking methylprednisolone/Zithromax for URI. On ER evaluation he does not have leukocytosis, troponin is normal, BioFire is positive for RSV, chest x-ray shows mild interstitial pulmonary edema. Last echo 2019 with EF 65%, type II diastolic dysfunction. He was hypoxic in the ER, and hypotensive x 2. Due to hypoxia and hypotension he was recommended for inpatient admission and treatment of viral URI. EKG is a ventricularly paced rhythm, troponin was normal. Given is seen in the ER. He reports he has had a upper respiratory infection with some wheezing and shortness of breath which began on , about 5 days ago. Has been on a steroid and an antibiotic for this. Was getting a little bit better but today had a uncomfortable pain which went up from his epigastrium up the left side of his chest and spread across to the right side. This was constant and lasted for over an hour until he received nitro and breathing treatments in the ER and then it seemed to relax. He has not had chest pain like this before. Denies exertional angina and shortness of breath normally. He has no history of COPD or asthma denies tobacco use. He is anticoagulated for A-fib. He does have a history of GERD feels this did feel somewhat different than his typical GERD symptoms. He denies any lightheadedness dizziness syncope or presyncope. He has not had nausea vomiting or diarrhea. No melena or hematochezia Medical History: Reviewed Medications: Reviewed Surgical History: Reviewed Family history: Reviewed Allergies: Reviewed Social History: No tobacco, No regular ETOH use Code Status: Full Discharge Exam General: NAD, VS as above Resp: normal respiratory effort, diminished in the bases, no wheezing. Positive cough CV: A-fib, no murmur, Abd: normal bowel sounds, non tender, no hepatosplenomegaly Extremities: Moves all extremities, trace edema Neuro: A&O x3, Skin: intact, no lesions noted Discharge Plan Discharge Items Patient Disposition: Home - Self-Care Reason For Visit: RSV, HFPEF Discharge Diagnosis: RSV Activity: Resume your previous activity Weightbearing: Full weightbearing Non-emergency contact: Primary Care Provider Call non-emergency contact if: you have any medication questions, your symptoms worsen and your temperature is above 101 Follow-up/Referrals: Hilario Zheng [Primary Care Provider] - 09/22/24 9:45 am () Diet: Heart Healthy Addtl Attending Provider Instructions: Mr. Ascencio, You were hospitalized after having chest tightness - you were found to have RSV. This is a respiratory virus that is mainly treated with supportive care. You have improved greatly with IV steroids and will be continued on oral steroids that will start tomorrow, these have been sent in to your pharmacy. You should continue to use in the flutter valve at home while you are continuing to heal - 10 times every hour while you are awake. You had troponin (heart enzyme) and echocardiogram (heart ultrasound) done that were reassuring. No acute cardiac events during your hospital stay. RSV can be quite contagious, especially to babies - would avoid being around infants for the next 5-7 days or wear a mask if you have to be around them. Do not kiss them or share drinks. Activity: You can do normal everyday activities as your body allows. Take rest breaks if you feel tired. Do not overexert. Stop activity if you have pain, shortness of breath or feel dizzy. Follow-up appointments: Make an appointment with your primary care physician within one week of discharge. A copy of this summary will be sent to them. Every time you see your primary care physician, or any other doctor, bring your medication list, and a list of questions. CONTACT YOUR PRIMARY CARE PROVIDER if you experience any of the following: Shortness of breath or difficulty breathing Fevers or chills Feeling tired with normal activity or experiencing dizziness or fainting Difficulty following your treatment plan, or difficulty taking medications CALL 911 OR GO TO THE EMERGENCY DEPARTMENT if you experience any of the following: Severe abdominal pain or nausea/vomiting Severe chest pain, or chest pain that radiates (moves) to your jaw or arm Sudden, severe shortness of breath or difficulty breathing Thank you for allowing us to participate in your care. Happy Holidays! Mary Walton PA-C Pending Studies at Discharge: No Stand-Alone Forms: [facility] [employer], Smoking Cessation Medications and DC Order Prescriptions: New prednisone 20 mg tablet See Taper PO DAILY Qty: 15 0RF Taper: Taper, Blank 60 mg DAILY for 2 Days 40 mg DAILY for 3 Days 20 mg DAILY for 3 Days Rx Instructions: start AM 12/25 Continued mecobalamin (vitamin B12) 5,000 mcg tablet,disintegrating 1,000 mcg PO .Q OTHER DAY sodium bicarbonate 650 mg tablet 650 mg PO BID Qty: 180 3RF metoprolol succinate 25 mg tablet extended release 24 hr 12.5 mg PO DAILY allopurinol 300 mg tablet 300 mg PO DAILY Qty: 90 3RF ezetimibe 10 mg tablet 10 mg PO DAILY pantoprazole 40 mg Tablet,Delayed Release (Dr/Ec) 40 mg PO QAM bupropion HCl [Wellbutrin SR] 200 mg tablet sustained-release 12 hr 200 mg PO BID cholecalciferol (vitamin D3) [Vitamin D3] 1,000 unit Tablet 1,000 unit PO QAM Xarelto 20 mg tablet 20 mg PO QPM colchicine 0.6 mg tablet 0.6 mg PO .ad directed PRN (Reason: Other) Rx Instructions: Please take 2 tabs today followed by 1 tab daily until resolution of symptoms. Do not take for more than 1 week. Discontinued azithromycin 250 mg tablet 250 mg PO DIRECTED methylprednisolone [Medrol (Luis)] 4 mg tablets,dose pack 4 mg PO DIRECTED Discharge Orders: Discharge Order (Routine); Ordered 09/15/24 Ordered By: Mary Benton/Other Patient Handouts: RSV (Respiratory Syncytial Virus) Admission Data Admit Date/Time: 09/14/24 16:43 Attending Provider: Jenny Mayo Admit Provider: Sachin Lopez Primary Care Provider: Hilario Zheng Other Providers: Sachin Lopez Hospital Stay Data Consultations 09/14/24 13:35 ED Decision to Admit Stat Diagnostic Imagining Performed Chest X-Ray 09/14/24 11:49 XR chest 1V portable CLINICAL HISTORY: Chest pain, nonspecific COMPARISON STUDY: Chest CT December 08, 2020. Chest radiograph July 12, 2014. FINDINGS: A left subclavian pacer is in place is in place. There is no pneumothorax or pleural effusion. There is moderate cardiomegaly with mild interstitial thickening. There is no consolidation. A hiatal hernia is again noted IMPRESSION: Cardiomegaly with mild interstitial pulmonary edema. ACT 112: Negative or not required by law. Electronically signed by: Edgardo Cisneros M.D. 09/14/2024 12:29 PM Pending Results Patient Have Any Pending Studies at Discharge: No Discharge Instructions Given to Patient (Per Discharging Provider) Mr. Ascencio, Teofilo were hospitalized after having chest tightness - you were found to have RSV. This is a respiratory virus that is mainly treated with supportive care. You have improved greatly with IV steroids and will be continued on oral steroids that will start tomorrow, these have been sent in to your pharmacy. You should continue to use in the flutter valve at home while you are continuing to heal - 10 times every hour while you are awake. You had troponin (heart enzyme) and echocardiogram (heart ultrasound) done that were reassuring. No acute cardiac events during your hospital stay. RSV can be quite contagious, especially to babies - would avoid being around infants for the next 5-7 days or wear a mask if you have to be around them. Do not kiss them or share drinks. Activity: You can do normal everyday activities as your body allows. Take rest breaks if you feel tired. Do not overexert. Stop activity if you have pain, shortness of breath or feel dizzy. Follow-up appointments: Make an appointment with your primary care physician within one week of discharge. A copy of this summary will be sent to them. Every time you see your primary care physician, or any other doctor, bring your medication list, and a list of questions. CONTACT YOUR PRIMARY CARE PROVIDER if you experience any of the following: Shortness of breath or difficulty breathing Fevers or chills Feeling tired with normal activity or experiencing dizziness or fainting Difficulty following your treatment plan, or difficulty taking medications CALL 911 OR GO TO THE EMERGENCY DEPARTMENT if you experience any of the following: Severe abdominal pain or nausea/vomiting Severe chest pain, or chest pain that radiates (moves) to your jaw or arm Sudden, severe shortness of breath or difficulty breathing Thank you for allowing us to participate in your care. Happy Holidays! Mary Walton PA-C Total Time Total Time Spent Total Time Spent (In Minutes): Time spent day of discharge 40 minutes including direct patient care, medication reconciliation, documentation, review of labs and images, and coordination of care. Coding Level of Care Code 34713 INP/OBS DISCH >30 MIN Diagnoses Acute hypoxemic respiratory failure J96.01 Paroxysmal atrial fibrillation I48.0 Dementia F03.90
== END 2024-09-15 13:48 | disposition home or self-care (01) | DRG 189 ==
LOC: ED 11:39 → SUATTDRO 16:43 → 2N 16:43